=== PATIENT | male | born 1970 | race African-American/Black ===

== ENCOUNTER 2016-03-28 16:24 | Inpatient (IN) | payer OTHER ==
[~2016-03-28] VITALS: Ht 177.8 cm; Wt 78.0 kg
[~2016-03-28 16:24] MED LIST: ALBU17IN INH; AMIT25TA PO; FINA5TAB2 PO; MIRA3350 PO; NORC5TAB PO; OMEP20CA3 PO; OMEP40CA2 PO; ONDA4TAB6 PO; PEPT262S PO; RANI15TA PO; ROLA1CHW PO
[2016-03-28] MEDS ORDERED: MORPHINE 4 MG/ML 1ML SYRINGE As Ordered ONE (17:37)
[2016-03-28] MEDS ORDERED: ONDANSETRON 4MG/2ML VIAL (J2405) As Ordered ONE (17:37)
[2016-03-28 17:50] LABS: BASO % 0.8 % (0.0-1.0); EOS # 0.2 K/mm3 (0.0-0.50); EOS % 3.9 % (0.0-3.0); LARGE UNSTAINED CELL # 0.1 K/mm3 (0.0-0.4); LARGE UNSTAINED CELL % 2.4 % (0.0-4.0); LYMPH # 1.6 K/mm3 (1.5-4.5); LYMPH % 31.4 % (24.0-44.0); MEAN CORPUSCULAR HEMOGLOBIN 31.4 pg (27.0-33.0); MEAN CORPUSCULAR HGB CONC 33.8 g/dl (32.0-36.5); MEAN CORPUSCULAR VOLUME 92.9 fl (80.0-96.0); MONO # 0.4 K/mm3 (0.0-0.8); MONO % 7.3 % (0.0-5.0); NEUTROPHILS # 2.7 K/mm3 (1.8-7.7); NEUTROPHILS % 54.3 % (36.0-66.0); PLATELET COUNT, AUTOMATED 134 k/mm3 (150-450); RED CELL DISTRIBUTION WIDTH 12.7 % (11.5-14.5)
[2016-03-28] MEDS ORDERED: GI COCKTAIL 50ML BTL(HYOSCYAMINE/MAALOX/LIDOCAINE VISCOUS)(1:3:1) As Ordered ONE (17:50)
--- NOTE | 2016-03-28 18:58 | REP ---
CT ABDOMEN AND PELVIS WITHOUT CONTRAST: CT abdomen and pelvis is performed without oral or IV contrast. Sagittal and coronal reconstruction images are performed. Comparison is made with prior study of 02/24/2016. Visualized lung bases demonstrate no infiltrate. Liver and gallbladder are grossly unremarkable. Spleen demonstrates a tiny calcified granuloma. Adrenals, pancreas and kidneys are grossly unremarkable. There is no evidence of renal, ureteral or bladder calculus. There is no hydronephrosis is seen. There is no abdominal aortic aneurysm. There is no free and no definite free fluid. No gross bowel wall thickening is seen. There is no evidence of appendicitis. IMPRESSION: Essentially negative noncontrast CT abdomen and pelvis. No evidence of renal, ureteral or bladder calculus and no evidence of hydronephrosis. No evidence of appendicitis. Signed by Jeremias Walton MD 03/28/2016 07:18 P
[2016-03-28 19:54] LABS: ALBUMIN 3.3 GM/DL (3.2-5.2); ALBUMIN/GLOBULIN RATIO 1.14 (1.00-1.93); ALKALINE PHOSPHATASE 61 U/L (45-117); ALT/SGPT 34 U/L (12-78); AMYLASE 204 U/L (25-115); ANION GAP 6 MEQ/L (8-16); AST/SGOT 17 U/L (15-37); BILIRUBIN,DIRECT 0.1 MG/DL (0.0-0.2); BILIRUBIN,TOTAL 0.4 MG/DL (0.2-1.0); BLOOD UREA NITROGEN 17 MG/DL (7-18); CARBON DIOXIDE LEVEL 31 MEQ/L (21-32); CHLORIDE LEVEL 107 MEQ/L (98-107); CREATININE FOR GFR 0.97 MG/DL (0.70-1.30); GLOMERULAR FILTRATION RATE > 60.0 (>60); GLUCOSE, FASTING 82 MG/DL (70-105); POTASSIUM SERUM 4.7 MEQ/L (3.5-5.1); SODIUM LEVEL 144 MEQ/L (136-145); TOTAL PROTEIN 6.2 GM/DL (6.4-8.2)
[2016-03-28] MEDS ORDERED: OMEP20CA3 PO (20:37)
[2016-03-28] MEDS ORDERED: RANI150T PO (20:37)
[2016-03-28 20:57] VITALS: BP 121/65
[2016-03-28] MEDS ORDERED: ONDANSETRON 4MG/2ML VIAL (J2405) IV PRN (21:30)
[2016-03-28] MEDS ORDERED: ACETAMINOPHEN TAB 650MG DOSE (2X325MG) PO PRN (21:30)
[2016-03-28] MEDS ORDERED: MORPHINE 2 MG/ML 1ML SYRINGE IV PRN (21:30)
--- NOTE | 2016-03-28 21:50 | REPUSA ---
CLINICAL HISTORY: Abdominal pain. TECHNIQUE: Realtime sonographic images were obtained in multiple projections. COMMENTS: The liver is of normal size, parenchyma demonstrates normal echogenicity. No discrete hepatic mass is seen. There is no intra or extrahepatic biliary ductal dilatation. CBD measures 2.9 mm. The gallbladder is physiologically distended and contains a 2 mm polyp versus retained stone at the anterior nondependen t gallbladder wall. The gallbladder wall is not thickened and there is no pericholecystic fluid. The re is no abdominal ascites. The right kidney measures 12.3 cm , free of hydronephrosis. IMPRESSION: 2 mm polyp versus retained stone at the anterior nondependent gallbladder wall. Thank you for your kind referral of this patient.
[2016-03-28 22:01] LABS: CHOLESTEROL LEVEL 127 MG/DL (<200); TRIGLYCERIDES LEVEL 42 MG/DL (<150)
--- NOTE | 2016-03-28 22:56 | EDDOCDS ---
Nurse's Notes [facility] Name: Cait Riggs Age: 45 yrs Sex: Male : 1970 Arrival Date: 03/28/2016 Time: 16:24 Bed I5 / M5 Private MD: No Pcp Diagnosis: Acute pancreatitis;Other abdominal pain;Nausea and vomiting Presentation: 03/28 16:27 Presenting complaint: Patient states: pt c/o "epigastric pain and interstitial ead cystitis." pt reports onset of symptoms two days ago. also c/o n/v. Adult Sepsis Screening: The patient does not have new or worsening altered mentation. Patient's respiratory rate is less than 22. Systolic blood pressure is greater than 100. Patient has a qSOFA score of 0- Negative Sepsis Screen. Suicide/Homicide risk assessment- the patient denies having any suicidal and/or homicidal ideations and does not present with any other emotional, behavioral or mental health complaints. Status: Patient is not a senior administrative services officer or dependent. Transition of care: patient was not received from another setting of care. 16:27 Acuity: JIMMY Level 3 ead 16:27 Method Of Arrival: Walkin/Carried/Asstd ead Triage Assessment: 16:29 General: Appears in no apparent distress, uncomfortable. Pain: Location: mid-sternal ead area Pain currently is 10 out of 10 on a pain scale. HIV screening NA for this visit Offered previously. Neurological: No deficits noted. Respiratory: Airway is patent Respiratory effort is even, unlabored. GI: Reports nausea, vomiting. Derm: No deficits noted. Historical: - Allergies: Amoxicillin (Hives); Cefuroxime (Vomit); Clindamycin (Hives); Doxycycline (Hives); lactose intolerant; PENICILLINS ("it freaks me out"); IV Dye; Protonix (Vomit); Toradol (Vomit); - Home Meds: 1. omeprazole 20 mg Oral TbEC 20 mg three times a day (Last dose: 03/28/2016) 2. ranitidine HCl 150 mg Oral tab 3 times per day (Last dose: 03/28/2016) - PMHx: abdominal hernia x2; Hiatal Hernia; GERD; Hypertension; cardiomegaly; - PSHx: Hernia repair; - Social history: Smoking status: Patient states former smoker of tobacco. No barriers to communication noted, The patient speaks fluent Qatari, Speaks appropriately for age. - Family history: Not pertinent. - : The pt / caregiver states he / she is not on anticoagulants. Home medication list is obtained from the patient, [employer] import data. - Exposure Risk Screening:: None identified. Screenin:52 Screening information is obtained from the patient. Fall risk: No risks identified. kc3 Assistance ADL's: requires no assistance with activities of daily living. Abuse/DV Screen: The patient / caregiver reports he/she is: not in a situation that causes fear, pain or injury. Nutritional screening: No deficits noted. home support is adequate. 22:13 Advance Directives: Currently, there is no health care proxy. There is no active DNR kas2 order. There is no living will. There is no Power of Pan Cleaner. Assessment: 17:44 Adult Sepsis Screening: The patient does not have new or worsening altered mentation. dsf Patient's respiratory rate is less than 22. Systolic blood pressure is greater than 100. Patient has a qSOFA score of 0- Negative Sepsis Screen. General: Appears in no apparent distress, Behavior is appropriate for age, cooperative. Pain: Location: pelvis and chest Pain currently is 10 out of 10 on a pain scale. Quality of pain is described as pressure. Neurological: Level of Consciousness is awake, alert. Cardiovascular: Capillary refill < 3 seconds. Respiratory: Airway is patent Respiratory effort is even, unlabored, Respiratory pattern is regular, symmetrical. GI: Abdomen is flat. Derm: Skin is intact. 18:44 General: Appears in no apparent distress, Behavior is appropriate for age, cooperative. dsf Neurological: Level of Consciousness is. Cardiovascular: Capillary refill < 3 seconds. Respiratory: Airway is patent Respiratory effort is even, unlabored, Respiratory pattern is regular, symmetrical. Derm: Skin is intact, Skin is normal. 19:00 General: pt walking around room waiting for test results . dsf 20:00 General: Appears in no apparent distress, Behavior is appropriate for age, cooperative. dsf Neurological: Level of Consciousness is awake, alert. Cardiovascular: Capillary refill < 3 seconds. Respiratory: Airway is patent Respiratory effort is even, unlabored, Respiratory pattern is regular, symmetrical. Derm: Skin is intact, Skin is normal. 21:52 General: Appears in no apparent distress, comfortable, well nourished, well groomed, kas2 Behavior is appropriate for age, cooperative, . Pain: Location: pelvis and chest and mid-sternal area Pain currently is 4 out of 10 on a pain scale. Neurological: Level of Consciousness is awake, alert, Oriented to person, place, time. Cardiovascular: Capillary refill < 3 seconds Rhythm is regular. Respiratory: Airway is patent Respiratory effort is even, unlabored, Respiratory pattern is regular, symmetrical, Breath sounds are clear bilaterally. Derm: Skin is intact, is healthy with good turgor, Skin is dry, Skin is pink, warm & dry. normal, Skin temperature is warm. 22:11 General: Patient sitting up in bed watching TV. Denies pain of discomfort at this time. kas2 Appears comfortable. No apparent distress noted. Call calvo within reach. Will continue to monitor.. 22:55 GI: kas2 Vital Signs: 16:26 BP 132 / 72; Pulse 74; Resp 18 S; Temp 96.2; Pulse Ox 98% on R/A; Weight 86.18 kg (R); dd6 Height 5 ft. 10 in. (177.80 cm) (R); Pain 10/10; 18:20 Pain 4/10; kc3 18:37 BP 138 / 78; Pulse 61; Resp 18; Pulse Ox 99% ; Pain 3/10; jrd 22:15 BP 134 / 76; Pulse 74; Resp 18; Temp 97.5; Pulse Ox 98% ; Pain 9/10; ajs 22:52 BP 128 / 72; Pulse 80; Resp 20; Temp 98.0; Pulse Ox 98% ; Pain 4/10; kas2 16:26 Body Mass Index 27.26 (86.18 kg, 177.80 cm) dd6 Vitals: 16:26 Log In Time: March 28, 2016 at 16:24. RN notified that patient meets Red Flag dd6 criteria. ED Course: 16:25 Patient visited by Edwardo Gar PCA. dd6 16:25 Patient moved to Waiting dd6 16:26 No Pcp is Private Physician. dd6 16:28 Triage Initiated ead 16:41 Patient moved to Pre RCE mlb1 16:44 Patient moved to Triage 1 ttb 17:12 [facility] ef1 17:12 Jaymie Mehta MD is Attending Physician. ef1 17:13 Patient visited by Mercedez Rendon PA-C. ef1 17:23 Patient moved to I5 / M5 rs6 17:24 Patient moved to Triage 1 rs6 17:26 Patient moved to I5 / M5 ttb 17:33 Patient name changed from Lario\\S\\\\S\\Keely\\S\\ to Lario\\S\\ \\S\\Keely. EDMS 17:33 Pt greeted and oriented to ED. Patient advised of names of staff involved in care, rs6 location of call calvo, wait times and NPO status. Patient has correct armband on for positive identification. Placed in gown. Bed in low position. Call light in reach. Side rails up X 1. Cardiac monitoring not applicable on this patient. 17:33 Urinalysis Sent. rs6 17:33 Urine Culture Sent. rs6 17:34 Patient visited by Nori Echeverria PCA. rs6 17:44 Amylase Sent. dsf 17:44 Basic Metabolic Profile Sent. dsf 17:44 CBC with Diff Sent. dsf 17:44 Lipase Sent. dsf 17:44 Liver Profile Sent. dsf 17:44 Inserted saline lock: 18 gauge in left antecubital area The patient tolerated the dsf procedure well. 17:45 Patient visited by Elise Rose RN. dsf 17:50 The patient / caregiver is instructed regarding the plan of care and ED course. kc3 17:56 [facility] Payment Agreement was scanned into [employer] and attached to record. jpb 18:19 Patient visited by Yamile Bliss RN. kc3 18:51 Patient visited by Mercedez Rendon PA-C. ef1 19:14 CT ABD & PELVIS: No Contrast Returned. EDMS 19:22 Patient visited by Mercedez Rendon PA-C. ef1 20:02 Patient visited by Mercedez Rendon PA-C. ef1 20:05 Patient visited by Elise Rose RN. dsf 20:11 CT ABD & PELVIS: No Contrast Returned. EDMS 20:35 Patient visited by Mercedez Rednon PA-C. ef1 20:45 Patient moved to Ultrasound br3 20:52 Patient visited by Elise Rose RN. dsf 21:04 Patient moved to I5 / M5 br3 21:14 Loly Pittman is Hospitalizing Provider. ef1 21:53 Patient visited by Danette Holland RN. kas2 22:13 No procedures done that require assistance. kas2 22:15 Patient visited by Danette Holland RN. kas2 22:16 Patient visited by Radha Fofana. ajs 22:32 Gallbladder US Returned. EDMS 22:33 Patient visited by Danette Holland RN. kas2 22:55 Patient visited by Danette Holland RN. kas2 Administered Medications: 17:49 Drug: NS 0.9% 1000 ml [sodium chloride 0.9 % intravenous solution] Route: IV; Rate: kc3 bolus; Site: left antecubital; 17:49 Drug: morphine 2 mg [morphine 4 mg/mL intravenous cartridge (0.5 mL)] {Note: pt kc3 requested partial dose. .} Route: IVP; Site: left antecubital; 18:20 Follow up: Pain 4/10 Adult kc3 17:50 Drug: Ondansetron 4 mg [ondansetron HCl 2 mg/mL intravenous solution (2 mL)] Route: kc3 IVP; Site: left antecubital; 18:20 Follow up: Response: No Adverse Reaction kc3 17:52 Drug: GI Cocktail - (Alum-Mag Hydroxide-Simeth Suspension 225 mg-200 mg-25 mg/5 mL 30 kc3 ml, Lidocaine Liquid 2 % 10 ml, Hyoscyamine Liquid 10 ml) Route: PO; 18:20 Follow up: Response: No Adverse Reaction kc3 Order Results: Lab Order: Amylase; SPEC'M 03/28/16 19:01 Test: AMYLASE; Value: 204; Range: 25-115; Abnormal: Above high normal; Units: U/L; Status: F Lab Order: Basic Metabolic Profile; SPEC'M 03/28/16 19:01 Test: GLUCOSE, FASTING; Value: 82; Range: 70-105; Units: MG/DL; Status: F Test: BLOOD UREA NITROGEN; Value: 17; Range: 7-18; Units: MG/DL; Status: F Test: CREATININE FOR GFR; Value: 0.97; Range: 0.70-1.30; Units: MG/DL; Status: F Test: GLOMERULAR FILTRATION RATE; Value: > 60.0; Range: >60; Status: F Test: SODIUM LEVEL; Value: 144; Range: 136-145; Units: MEQ/L; Status: F Test: POTASSIUM SERUM; Value: 4.7; Range: 3.5-5.1; Units: MEQ/L; Status: F Test: CHLORIDE LEVEL; Value: 107; Range: 98-107; Units: MEQ/L; Status: F Test: CARBON DIOXIDE LEVEL; Value: 31; Range: 21-32; Units: MEQ/L; Status: F Test: ANION GAP; Value: 6; Range: 8-16; Abnormal: Below low normal; Units: MEQ/L; Status: F Test: CALCIUM LEVEL; Value: 8.0; Range: 8.5-10.1; Abnormal: Below low normal; Units: MG/DL; Status: F Test Note: ; Units are mL/min/1.73 m2 Chronic Kidney Disease Staging per NKF: Stage I & II GFR >=60 Normal to Mildly Decreased Stage III GFR 30-59 Moderately Decreased Stage IV GFR 15-29 Severely Decreased Stage V GFR <15 Very Little GFR Left ESRD GFR <15 on TOY ELECTRIC TRAIN REPAIRER Lab Order: CBC with Diff; SPEC'M 03/28/16 17:40 Test: WHITE BLOOD COUNT; Value: 5.0; Range: 4.0-10.0; Units: K/mm3; Status: F Test: RED BLOOD COUNT; Value: 5.91; Range: 4.30-6.10; Units: M/mm3; Status: F Test: HEMOGLOBIN; Value: 18.5; Range: 14.0-18.0; Abnormal: Above high normal; Units: g/dl; Status: F Test: HEMATOCRIT; Value: 54.9; Range: 42.0-52.0; Abnormal: Above high normal; Units: %; Status: F Test: MEAN CORPUSCULAR VOLUME; Value: 92.9; Range: 80.0-96.0; Units: fl; Status: F Test: MEAN CORPUSCULAR HEMOGLOBIN; Value: 31.4; Range: 27.0-33.0; Units: pg; Status: F Test: MEAN CORPUSCULAR HGB CONC; Value: 33.8; Range: 32.0-36.5; Units: g/dl; Status: F Test: RED CELL DISTRIBUTION WIDTH; Value: 12.7; Range: 11.5-14.5; Units: %; Status: F Test: PLATELET COUNT, AUTOMATED; Value: 134; Range: 150-450; Abnormal: Below low normal; Units: k/mm3; Status: F Test: NEUTROPHILS %; Value: 54.3; Range: 36.0-66.0; Units: %; Status: F Test: LYMPH %; Value: 31.4; Range: 24.0-44.0; Units: %; Status: F Test: MONO %; Value: 7.3; Range: 0.0-5.0; Abnormal: Above high normal; Units: %; Status: F Test: EOS %; Value: 3.9; Range: 0.0-3.0; Abnormal: Above high normal; Units: %; Status: F Test: BASO %; Value: 0.8; Range: 0.0-1.0; Units: %; Status: F Test: LARGE UNSTAINED CELL %; Value: 2.4; Range: 0.0-4.0; Units: %; Status: F Test: NEUTROPHILS #; Value: 2.7; Range: 1.8-7.7; Units: K/mm3; Status: F Test: LYMPH #; Value: 1.6; Range: 1.5-4.5; Units: K/mm3; Status: F Test: MONO #; Value: 0.4; Range: 0.0-0.8; Units: K/mm3; Status: F Test: EOS #; Value: 0.2; Range: 0.0-0.50; Units: K/mm3; Status: F Test: BASO #; Value: 0.0; Range: 0.0-0.2; Units: K/mm3; Status: F Test: LARGE UNSTAINED CELL #; Value: 0.1; Range: 0.0-0.4; Units: K/mm3; Status: F Lab Order: Lipase; SPEC'M 03/28/16 19:01 Test: LIPASE; Value: 442; Range: 73-393; Abnormal: Above high normal; Units: U/L; Status: F Lab Order: Liver Profile; SPEC'M 03/28/16 19:01 Test: AST/SGOT; Value: 17; Range: 15-37; Units: U/L; Status: F Test: ALT/SGPT; Value: 34; Range: 12-78; Units: U/L; Status: F Test: ALKALINE PHOSPHATASE; Value: 61; Range: 45-117; Units: U/L; Status: F Test: BILIRUBIN,TOTAL; Value: 0.4; Range: 0.2-1.0; Units: MG/DL; Status: F Test: BILIRUBIN,DIRECT; Value: 0.1; Range: 0.0-0.2; Units: MG/DL; Status: F Test: TOTAL PROTEIN; Value: 6.2; Range: 6.4-8.2; Abnormal: Below low normal; Units: GM/DL; Status: F Test: ALBUMIN; Value: 3.3; Range: 3.2-5.2; Units: GM/DL; Status: F Test: ALBUMIN/GLOBULIN RATIO; Value: 1.14; Range: 1.00-1.93; Status: F Lab Order: Urinalysis; SPEC'M 03/28/16 17:30 Test: APPEARANCE, URINE; Value: CLEAR; Range: CLEAR; Status: F Test: COLOR, URINE; Value: YELLOW; Range: YELLOW; Status: F Test: PH,URINE; Value: 5.0; Range: 5.0-9.0; Units: UNITS; Status: F Test: SPECIFIC GRAVITY URINE AUTO; Value: 1.023; Range: 1.002-1.035; Status: F Test: PROTEIN, URINE AUTO; Value: NEGATIVE; Range: NEGATIVE; Units: mg/dL; Status: F Test: GLUCOSE, URINE (UA) AUTO; Value: NEGATIVE; Range: NEGATIVE; Units: mg/dL; Status: F Test: KETONE, URINE AUTO; Value: NEGATIVE; Range: NEGATIVE; Units: mg/dL; Status: F Test: UROBILINOGEN, URINE AUTO; Value: 0.2; Range: 0.0-2.0; Units: mg/dL; Status: F Test: BILIRUBIN, URINE AUTO; Value: NEGATIVE; Range: NEGATIVE; Status: F Test: NITRITE, URINE AUTO; Value: NEGATIVE; Range: NEGATIVE; Status: F Test: LEUKOCYTE ESTERASE, URINE AUTO; Value: NEGATIVE; Range: NEGATIVE; Status: F Test: BLOOD, URINE BLOOD; Value: NEGATIVE; Range: NEGATIVE; Status: F Test: WBC, URINE AUTO; Value: 0; Range: 0-3; Units: /HPF; Status: F Test: RBC, URINE AUTO; Value: 1; Range: 0-3; Units: /HPF; Status: F Test: BACTERIA, URINE AUTO; Value: NEGATIVE; Range: NEGATIVE; Status: F Test: SQUAMOUS EPITHELIAL CELL UR AU; Value: 0; Range: 0-6; Units: /HPF; Status: F Test: MUCUS, URINE; Value: SMALL; Range: NEGATIVE; Status: F Test: HYALINE CAST, URINE AUTO; Value: 0; Range: 0-1; Units: /LPF; Status: F Lab Order: CARDIAC RISK PROFILE; SPEC'M 03/28/16 19:01 Test: TRIGLYCERIDES LEVEL; Value: 42; Range: <150; Units: MG/DL; Status: F Test: CHOLESTEROL LEVEL; Value: 127; Range: <200; Units: MG/DL; Status: F Test: HDL CHOLESTEROL; Value: 53; Range: >40; Units: MG/DL; Status: F Test: LDL CHOLESTEROL; Value: 65.6; Range: <100; Units: MG/DL; Status: F Test: NON-HDL-C; Value: 74; Units: MG/DL; Status: F Test: CHOLESTEROL RISK RATIO; Value: 2.396; Range: <5; Status: F Radiology Order: CT ABD & PELVIS: No Contrast Test: CT ABD & PELVIS: No Contrast REASON FOR EXAMINATION: Renal colic; CT ABDOMEN AND PELVIS WITHOUT CONTRAST:; ; CT abdomen and pelvis is performed without oral or IV contrast.; ; Sagittal and coronal reconstruction images are performed. Comparison is made with; prior study of 02/24/2016.; ; Visualized lung bases demonstrate no infiltrate.; ; Liver and gallbladder are grossly unremarkable. Spleen demonstrates a tiny; calcified granuloma. Adrenals, pancreas and kidneys are grossly unremarkable.; There is no evidence of renal, ureteral or bladder calculus. There is no; hydronephrosis is seen. There is no abdominal aortic aneurysm. There is no free; and no definite free fluid. No gross bowel wall thickening is seen. There is no; evidence of appendicitis.; ; IMPRESSION:; ; Essentially negative noncontrast CT abdomen and pelvis. No evidence of renal,; ureteral or bladder calculus and no evidence of hydronephrosis. No evidence of; appendicitis.; ; ; Signed by; Jeremias Walton MD 03/28/2016 07:18 P; Radiology Order: Gallbladder US Test: Gallbladder US REASON FOR EXAMINATION: pancreatitis; ; CLINICAL HISTORY: Abdominal pain.; TECHNIQUE: Realtime sonographic images were obtained in multiple projections.; COMMENTS:; The liver is of normal size, parenchyma demonstrates normal echogenicity. No discrete hepatic mass is; seen.; There is no intra or extrahepatic biliary ductal dilatation. CBD measures 2.9 mm. The gallbladder is; physiologically distended and contains a 2 mm polyp versus retained stone at the anterior nondependen; t gallbladder wall. The gallbladder wall is not thickened and there is no pericholecystic fluid. The; re is no abdominal ascites.; The right kidney measures 12.3 cm , free of hydronephrosis.; IMPRESSION:; 2 mm polyp versus retained stone at the anterior nondependent gallbladder wall.; Thank you for your kind referral of this patient.; ; Outcome: 17:54 CT Study completed. 3 21:14 Decision to Hospitalize by Provider. ef1 22:13 Discharge Assessment: patient administered narcotics - yes. Patient was admitted to the [address] or transferred to another facility. 22:13 Property :Personal belongings accompany Pt. [facility] 22:53 The following High Risk Discharge criteria are identified: None. Admitted to Med/Surg [facility] accompanied by tech, via wheelchair, with chart. Condition: good Condition: stable. 22:55 Patient left the ED. [facility] Signatures: Dispatcher [employer] EDDE Yury Chew RN RN mlb1 Edwardo Gar, RN ASSESSMENT RN ASSESSMENT dd6 Mercedez Rendon PA-C PA-C ef1 Vivian Hammer br3 Elise RoseRN RN dsf Radha Fofana Joel jpb Conner, Teresa RN RN Natalie OconnellRN RN Florentino Moran, RN ASSESSMENT RN ASSESSMENT d Nori Echeverria, RN ASSESSMENT RN ASSESSMENT rs6 Yamile Bliss RN RN kc3 Danette Holland RN RN [facility] MTDD
--- NOTE | 2016-03-28 22:56 | EDDOCDS ---
Physician Documentation [facility] Name: Cait Riggs Age: 45 yrs Sex: Male : 1970 Arrival Date: 03/28/2016 Time: 16:24 Bed I5 / M5 Private MD: No Pcp Disposition: 03/28/16 21:14 Hospitalization ordered by Loly Pittman for Inpatient Admission. Preliminary diagnosis are Acute pancreatitis, Other abdominal pain, Nausea and vomiting. - Bed requested for 4 [place]. - Status is Inpatient Admission. kas2 - Condition is Stable. - Problem is new. - Symptoms have improved. Historical: - Allergies: Amoxicillin (Hives); Cefuroxime (Vomit); Clindamycin (Hives); Doxycycline (Hives); lactose intolerant; PENICILLINS ("it freaks me out"); IV Dye; Protonix (Vomit); Toradol (Vomit); - Home Meds: 1. omeprazole 20 mg Oral TbEC 20 mg three times a day (Last dose: 03/28/2016) 2. ranitidine HCl 150 mg Oral tab 3 times per day (Last dose: 03/28/2016) - PMHx: abdominal hernia x2; Hiatal Hernia; GERD; Hypertension; cardiomegaly; - PSHx: Hernia repair; - Social history: Smoking status: Patient states former smoker of tobacco. No barriers to communication noted, The patient speaks fluent Micronesian, Speaks appropriately for age. - Family history: Not pertinent. - : The pt / caregiver states he / she is not on anticoagulants. Home medication list is obtained from the patient, [employer] import data. - Exposure Risk Screening:: None identified. Vital Signs: 03/28 16:26 BP 132 / 72; Pulse 74; Resp 18 S; Temp 96.2; Pulse Ox 98% on R/A; Weight 86.18 kg / dd6 189.99 lbs (R); Height 5 ft. 10 in. (177.80 cm) (R); Pain 10/10; 18:20 Pain 4/10; kc3 18:37 BP 138 / 78; Pulse 61; Resp 18; Pulse Ox 99% ; Pain 3/10; jrd 22:15 BP 134 / 76; Pulse 74; Resp 18; Temp 97.5; Pulse Ox 98% ; Pain 9/10; ajs 22:52 BP 128 / 72; Pulse 80; Resp 20; Temp 98.0; Pulse Ox 98% ; Pain 4/10; kas2 16:26 Body Mass Index 27.26 (86.18 kg, 177.80 cm) dd6 MDM: 17:23 NS 0.9% 1000 ml IV at bolus once ordered. ef1 17:23 Ondansetron 4 mg IVP once ordered. ef1 17:23 IV Saline Lock ordered. ef1 17:23 Undress patient appropriately for examination ordered. ef1 17:23 morphine 4 mg IVP once ordered. ef1 17:24 CT ABD & PELVIS: No Contrast Ordered. EDMS 17:25 Amylase Ordered. EDMS 17:25 Basic Metabolic Profile Ordered. EDMS 17:25 CBC with Diff Ordered. EDMS 17:25 Lipase Ordered. EDMS 17:25 Liver Profile Ordered. EDMS 17:25 Urinalysis Ordered. EDMS 17:25 Urine Culture Ordered. EDMS 17:25 NOTHING BY MOUTH+DIET ordered. EDMS 17:43 Financial registration complete. dm19 17:47 GI Cocktail - (Alum-Mag Hydroxide-Simeth 30 ml, Lidocaine 10 ml, Hyoscyamine 10 ml) PO ef1 once; Pre-mixed 50mL unit dose ordered. 17:56 [facility] Payment Agreement was scanned into [employer] and attached to record. jpb 18:03 CBC with Diff Reviewed. ef1 18:03 Urinalysis Reviewed. ef1 19:30 CT ABD & PELVIS: No Contrast Reviewed. ef1 20:03 Amylase Reviewed. ef1 20:03 Basic Metabolic Profile Reviewed. ef1 20:03 Lipase Reviewed. ef1 20:03 Liver Profile Reviewed. ef1 20:36 Gallbladder US Ordered. EDMS 20:36 BED REQUEST+ADM ordered. EDMS 21:31 Admission / Observation Status ordered. EDMS 21:31 NPO DIET ordered. EDMS 21:40 COMPLETE BLOOD COUNT Ordered. EDMS 21:40 BASIC METABOLIC PROFILE Ordered. EDMS 21:50 CARDIAC RISK PROFILE Ordered. EDMS 21:51 LIPASE Ordered. EDMS Administered Medications: 17:49 Drug: NS 0.9% 1000 ml [sodium chloride 0.9 % intravenous solution] Route: IV; Rate: kc3 bolus; Site: left antecubital; 17:49 Drug: morphine 2 mg [morphine 4 mg/mL intravenous cartridge (0.5 mL)] {Note: pt kc3 requested partial dose. .} Route: IVP; Site: left antecubital; 18:20 Follow up: Pain 4/10 Adult kc3 17:50 Drug: Ondansetron 4 mg [ondansetron HCl 2 mg/mL intravenous solution (2 mL)] Route: kc3 IVP; Site: left antecubital; 18:20 Follow up: Response: No Adverse Reaction kc3 17:52 Drug: GI Cocktail - (Alum-Mag Hydroxide-Simeth Suspension 225 mg-200 mg-25 mg/5 mL 30 kc3 ml, Lidocaine Liquid 2 % 10 ml, Hyoscyamine Liquid 10 ml) Route: PO; 18:20 Follow up: Response: No Adverse Reaction kc3 Signatures: Dispatcher [employer] EDMS Nita Garcia, RN RN [place], PANayeli PANayeli ef1 Martínez Márquez EmilyRN RN Yamile Velazquez RN RN kc3 Danette Holland RN RN [facility]2 Ebony Ashley dm19 The chart was reviewed and I authenticate all verbal orders and agree with the evaluation and treatment provided.Corrections: (The following items were deleted from the chart) 20:45 20:34 GALLBLADDER US ordered. EDMS EDMS 21:50 21:40 CARDIAC RISK PROFILE ordered. EDMS EDMS 21:51 21:40 LIPASE ordered. EDMS EDMS Attachments: 17:56 [facility] Payment Agreement adilson MTDD
[2016-03-28] MEDS: NS 1,000 ML IV SCH (23:08)
--- NOTE | 2016-03-29 00:24 | HPE ---
DATE OF ADMISSION: 03/28/2016 PRIMARY CARE PROVIDER: None. GASTROENTEROLOGY SPECIALIST: Fidencio HISTORY OF PRESENT ILLNESS: Patient is a 45-year-old male with past medical history significant for gastroesophageal reflux disease (GERD), hypertension, hiatal hernia, interstitial cystitis, presented to [facility] on 03/28/2016, for acute worsening of abdominal pain. Patient stated that for the past 2-3 days he started having pain mainly in the right upper abdomen. The pain is sharp. It radiates to the back and the whole abdomen. The pain becomes worse with movement or oral intake. Denied any trauma. This type of pain never happened before. Patient did have multiple episodes of abdominal discomfort in the past several months. He has being seen by the gastrointestinal (GI) specialist in [place]; however, there is no confirmed diagnosis for his chronic abdominal discomfort. He denies any other associated symptoms. Denies any recent medication changes. Denies any lifestyle modifications. Denies any excessive alcohol use. Due to poor appetite, the patient lost more than 100 pounds in the past year. When patient arrived in the emergency room, patient was found to have an elevated lipase level. Patient was given IV morphine and one liter of normal saline bolus and hospitalist was called for admission. ALLERGIES/ADVERSE EFFECTS: 1. AMOXICILLIN. 2. CEFUROXIME. 3. CLINDAMYCIN. 4. DOXYCYCLINE. 5. PENICILLIN. 6. IV DYE. 7. PROTONIX. 8. TORADOL. HOME MEDICATIONS: - omeprazole 20 mg by mouth three times a day - ranitidine 150 mg by mouth three times a day PAST MEDICAL HISTORY: 1. Abdominal hernia. 2. Hiatal hernia. 3. Gastroesophageal reflux disease. 4. Hypertension. 5. Interstitial cystitis. PAST SURGICAL HISTORY: Hiatal hernia repair. SOCIAL HISTORY: Patient used to smoke half a pack daily for 16 years. He quit smoking. No alcohol use. No recreational drug use. REVIEW OF SYSTEMS: GENERAL: No fever, no chills. HEENT: No vision changes. No auditory changes. CARDIOVASCULAR: No chest pain. No palpitations. RESPIRATORY: No shortness of breath, no wheezing, no cough, no sputum production. GI: Abdominal pain for the past 2-3 days, unable to tolerate oral intake due to discomfort. No diarrhea. MUSCULOSKELETAL: No joint pain or muscle pain. NEUROLOGICAL: No numbness or tingling. PHYSICAL EXAMINATION: VITAL SIGNS: Blood pressure is 138/78, pulse is 61, respiratory rate 18, temperature is 96.2, pulse oximetry 99% in room air. Body weight is 86.18 kg, body height is 177.8 cm. GENERAL: No signs of acute distress, alert, and oriented times three. HEENT: Normocephalic, atraumatic. Extraocular motors are grossly intact. CARDIOVASCULAR: Positive S1, S2, regular rate. RESPIRATORY: Clear to auscultation bilaterally. ABDOMEN: Positive rebound right upper quadrant and pain is reproducible with pressure. Hyperactive bowel sounds are present. Abdomen is soft. EXTREMITIES: No edema, no cyanosis. NEUROLOGICAL: Muscle strength 5/5. Sensation to fine touch grossly intact. LABORATORY DATA: WBC 5, hemoglobin 18.5, hematocrit is 54.9, platelet count is 134. Sodium is 144, potassium 4.5, chloride is 107, carbon dioxide 31, BUN 17, creatinine 0.97, GFR greater than 60, fasting glucose 82, calcium is 8, total bilirubin is 0.4, direct bilirubin is 0.1, AST 17, ALT 34, alkaline phosphatase 61, total protein 6.2, albumin is 3.3, amylase is 204, lipase of 442. UA is negative. MICROBIOLOGY: Urine culture is pending. IMAGING: CT of the abdomen and pelvis without contrast showed essentially negative, non-contrast CT of abdomen and pelvis. No evidence of renal, ureteral, or bladder calculus, and no evidence of hydronephrosis. No evidence of appendicitis. ASSESSMENT AND PLAN: 1. Pancreatitis. Patient will be admitted to the medical-surgical floor under inpatient status. Patient will be nothing by mouth and started on IV fluids at 150 mL/hr. Patient will have morphine IV as needed for pain control. Patient denied any medication changes, denied any lifestyle modifications. Patient denies any extensive alcohol history. We will followup with ultrasound to rule out any stones. We will followup lipid profiles. 2. Gastroesophageal reflux disease. Patient is nothing by mouth currently. Patient will receive Protonix through the IV. 3. History of hiatal hernia, status post repair. 4. Interstitial cystitis. Urinalysis (UA) is negative. Urine culture is pending. 5. History of hypertension. Currently blood pressure is in satisfactory range. The patient is not taking blood pressure at home. 6. Deep vein thrombosis (DVT) prophylaxis. Patient is on heparin. [facility]
[2016-03-29] MEDS: HEPARIN SOD (PORCINE) 5000 UNITS/ML VIAL SC SCH ×3 (05:17→13:27)
[2016-03-29] MEDS: NS 1,000 ML IV SCH ×2 (05:18→12:00)
[2016-03-29 06:00] VITALS: BP 120/68
[2016-03-29 07:13] LABS: MEAN CORPUSCULAR HEMOGLOBIN 31.3 pg (27.0-33.0); MEAN CORPUSCULAR HGB CONC 33.4 g/dl (32.0-36.5); MEAN CORPUSCULAR VOLUME 93.8 fl (80.0-96.0); RED CELL DISTRIBUTION WIDTH 12.7 % (11.5-14.5); WHITE BLOOD COUNT 4.5 K/mm3 (4.0-10.0)
[2016-03-29 07:21] LABS: ANION GAP 9 MEQ/L (8-16); BLOOD UREA NITROGEN 13 MG/DL (7-18); CALCIUM LEVEL 8.3 MG/DL (8.5-10.1); CARBON DIOXIDE LEVEL 27 MEQ/L (21-32); CHLORIDE LEVEL 107 MEQ/L (98-107); CREATININE FOR GFR 1.12 MG/DL (0.70-1.30); GLOMERULAR FILTRATION RATE > 60.0 (>60); GLUCOSE, FASTING 89 MG/DL (70-105); POTASSIUM SERUM 3.9 MEQ/L (3.5-5.1); SODIUM LEVEL 143 MEQ/L (136-145)
[2016-03-29] MEDS ORDERED: AZITHROMYCIN 250 MG TAB PO SCH (09:00)
[2016-03-29] MEDS ORDERED: PANTOPRAZOLE 40MG INJ (PROTONIX) (C9113) IV SCH (09:00)
[2016-03-29] MEDS ORDERED: OMEPRAZOLE 20 MG CAP PO SCH (09:00)
--- NOTE | 2016-03-29 12:55 | REP ---
Scrotal ultrasound, 03/29/2016: Indication: Right testicular pain. Comparison: CT abdomen and pelvis without contrast 03/28/2016, CT abdomen and pelvis 12/01/2015. Technique: Color-flow Doppler, spectral wave Doppler, and putnam-scale imaging was used to evaluate the testes bilaterally. Findings: Right testicle measures 4.2 x 2.1 x 3.2 cm. Left testicle measures 4.2 x 2.2 x 3.2 cm. Testes are of homogeneous echotexture bilaterally. Two tiny bilateral testicular cysts are seen in each testicle. Symmetric perfusion is noted in the testes bilaterally. Right epididymal head is 11.9 mm in length. Left epididymal head is 12.4 mm in length. There is a 3 mm right epididymal head cyst. There is no increased perfusion within the epididymi bilaterally. There is a small left varicocele posterior to the left testicle. Impression: Testes without masses or torsion bilaterally. Each testicle contains two tiny cysts, largest 3 mm on the left. 3 mm right epididymal head cyst. No evidence of epididymitis bilaterally. Small left varicocele. Signed by Ashley Tavarez MD 03/31/2016 03:04 P
[2016-03-29] MEDS ORDERED: AZIT250T3 PO (13:15)
--- NOTE | 2016-03-30 05:38 | DSES ---
DATE OF ADMISSION: 03/28/2016 DATE OF DISCHARGE: 03/29/2016 PRIMARY CARE PROVIDER: None. Arrangements are made for patient to have a primary care provider. 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 FINAL DIAGNOSES: 1. Gastritis. 2. Pancreatitis. 3. History of interstitial cystitis. 4. History of hypertension. HISTORY OF PRESENT ILLNESS: This is a 45-year-old male patient with underlying medical history of gastroesophageal reflux disease (GERD), hypertension, hiatal hernia, interstitial cystitis, presented to [facility] with acute worsening of abdominal pain for 2-3 days. Started having in the right upper quadrant abdominal pain that is sharp. It radiated to the back and whole abdomen, worsened with movement and oral intake. Denies any trauma. As per patient, this type of pain has never happened before, with multiple episodes of abdominal discomfort, patient sees a automotive service manager in [place]. Denies any associated symptoms. No nausea. No vomiting. Denies excessive alcohol use, further weight loss. HOSPITAL COURSE: Patient was admitted to the hospital for overnight observation. Intravenous (IV) fluids have been given along with proton pump inhibitor (PPI). Deep venous thrombosis (DVT) prophylaxis provided. Ultrasound gallbladder was done. CT abdomen was also done. Ultrasound scrotum also has been done. Urinalysis has been also done. This morning, patient reported symptoms better and feeling hungry. Diet was advanced. Patient tolerating diet with no complications. Further workup has been negative. Patient would like to be discharged for further followup as outpatient. Subsequently, patient is discharged for further care as an outpatient. Arrangement was made for patient to have a primary care provider. VITAL SIGNS: Temperature 97.7, pulse 73, respirations 18, blood pressure 120/68, pulse oximetry 98% on room air. LABORATORY: WBC 4.5, hemoglobin and hematocrit 16.9/50.6, platelets 127. Chemistry: Sodium 143, potassium 3.9, chloride 107, bicarbonate 27, BUN 13, creatinine 1.12. Lipase repeat 127. DISCHARGE MEDICATIONS: - azithromycin 500 mg by mouth daily, five more tablets - omeprazole 20 mg by mouth three times a day - ranitidine 150 mg one tablet by mouth three times a day DISCHARGE INSTRUCTIONS: Patient is instructed to followup with primary care provider in 1-2 weeks. Followup with urology in 1-2 weeks and automotive service manager in 1-2 weeks. Patient is instructed to return to the hospital if symptoms worsen.
--- NOTE | 2016-03-30 23:56 | EDDOCDS ---
Nurse's Notes [facility] Name: Cait Riggs Age: 45 yrs Sex: Male : 1970 Arrival Date: 03/28/2016 Time: 16:24 Bed I5 / M5 Private MD: No Pcp Diagnosis: Acute pancreatitis;Other abdominal pain;Nausea and vomiting Presentation: 03/28 16:27 Presenting complaint: Patient states: pt c/o "epigastric pain and interstitial ead cystitis." pt reports onset of symptoms two days ago. also c/o n/v. Adult Sepsis Screening: The patient does not have new or worsening altered mentation. Patient's respiratory rate is less than 22. Systolic blood pressure is greater than 100. Patient has a qSOFA score of 0- Negative Sepsis Screen. Suicide/Homicide risk assessment- the patient denies having any suicidal and/or homicidal ideations and does not present with any other emotional, behavioral or mental health complaints. Status: Patient is not a special services coordinator or dependent. Transition of care: patient was not received from another setting of care. 16:27 Acuity: JIMMY Level 3 ead 16:27 Method Of Arrival: Walkin/Carried/Asstd ead Triage Assessment: 16:29 General: Appears in no apparent distress, uncomfortable. Pain: Location: mid-sternal ead area Pain currently is 10 out of 10 on a pain scale. HIV screening NA for this visit Offered previously. Neurological: No deficits noted. Respiratory: Airway is patent Respiratory effort is even, unlabored. GI: Reports nausea, vomiting. Derm: No deficits noted. Historical: - Allergies: Amoxicillin (Hives); Cefuroxime (Vomit); Clindamycin (Hives); Doxycycline (Hives); lactose intolerant; PENICILLINS ("it freaks me out"); IV Dye; Protonix (Vomit); Toradol (Vomit); - Home Meds: 1. omeprazole 20 mg Oral TbEC 20 mg three times a day (Last dose: 03/28/2016) 2. ranitidine HCl 150 mg Oral tab 3 times per day (Last dose: 03/28/2016) - PMHx: abdominal hernia x2; Hiatal Hernia; GERD; Hypertension; cardiomegaly; - PSHx: Hernia repair; - Social history: Smoking status: Patient states former smoker of tobacco. No barriers to communication noted, The patient speaks fluent Eritrean, Speaks appropriately for age. - Family history: Not pertinent. - : The pt / caregiver states he / she is not on anticoagulants. Home medication list is obtained from the patient, [employer] import data. - Exposure Risk Screening:: None identified. Screenin:52 Screening information is obtained from the patient. Fall risk: No risks identified. kc3 Assistance ADL's: requires no assistance with activities of daily living. Abuse/DV Screen: The patient / caregiver reports he/she is: not in a situation that causes fear, pain or injury. Nutritional screening: No deficits noted. home support is adequate. 22:13 Advance Directives: Currently, there is no health care proxy. There is no active DNR kas2 order. There is no living will. There is no Power of Bark Grinder. Assessment: 17:44 Adult Sepsis Screening: The patient does not have new or worsening altered mentation. dsf Patient's respiratory rate is less than 22. Systolic blood pressure is greater than 100. Patient has a qSOFA score of 0- Negative Sepsis Screen. General: Appears in no apparent distress, Behavior is appropriate for age, cooperative. Pain: Location: pelvis and chest Pain currently is 10 out of 10 on a pain scale. Quality of pain is described as pressure. Neurological: Level of Consciousness is awake, alert. Cardiovascular: Capillary refill < 3 seconds. Respiratory: Airway is patent Respiratory effort is even, unlabored, Respiratory pattern is regular, symmetrical. GI: Abdomen is flat. Derm: Skin is intact. 18:44 General: Appears in no apparent distress, Behavior is appropriate for age, cooperative. dsf Neurological: Level of Consciousness is. Cardiovascular: Capillary refill < 3 seconds. Respiratory: Airway is patent Respiratory effort is even, unlabored, Respiratory pattern is regular, symmetrical. Derm: Skin is intact, Skin is normal. 19:00 General: pt walking around room waiting for test results . dsf 20:00 General: Appears in no apparent distress, Behavior is appropriate for age, cooperative. dsf Neurological: Level of Consciousness is awake, alert. Cardiovascular: Capillary refill < 3 seconds. Respiratory: Airway is patent Respiratory effort is even, unlabored, Respiratory pattern is regular, symmetrical. Derm: Skin is intact, Skin is normal. 21:52 General: Appears in no apparent distress, comfortable, well nourished, well groomed, kas2 Behavior is appropriate for age, cooperative, . Pain: Location: pelvis and chest and mid-sternal area Pain currently is 4 out of 10 on a pain scale. Neurological: Level of Consciousness is awake, alert, Oriented to person, place, time. Cardiovascular: Capillary refill < 3 seconds Rhythm is regular. Respiratory: Airway is patent Respiratory effort is even, unlabored, Respiratory pattern is regular, symmetrical, Breath sounds are clear bilaterally. Derm: Skin is intact, is healthy with good turgor, Skin is dry, Skin is pink, warm & dry. normal, Skin temperature is warm. 22:11 General: Patient sitting up in bed watching TV. Denies pain of discomfort at this time. kas2 Appears comfortable. No apparent distress noted. Call calvo within reach. Will continue to monitor.. 22:55 GI: kas2 Vital Signs: 16:26 BP 132 / 72; Pulse 74; Resp 18 S; Temp 96.2; Pulse Ox 98% on R/A; Weight 86.18 kg (R); dd6 Height 5 ft. 10 in. (177.80 cm) (R); Pain 10/10; 18:20 Pain 4/10; kc3 18:37 BP 138 / 78; Pulse 61; Resp 18; Pulse Ox 99% ; Pain 3/10; jrd 22:15 BP 134 / 76; Pulse 74; Resp 18; Temp 97.5; Pulse Ox 98% ; Pain 9/10; ajs 22:52 BP 128 / 72; Pulse 80; Resp 20; Temp 98.0; Pulse Ox 98% ; Pain 4/10; kas2 16:26 Body Mass Index 27.26 (86.18 kg, 177.80 cm) dd6 Vitals: 16:26 Log In Time: March 28, 2016 at 16:24. RN notified that patient meets Red Flag dd6 criteria. ED Course: 16:25 Patient visited by Edwardo Gar PCA. dd6 16:25 Patient moved to Waiting dd6 16:26 No Pcp is Private Physician. dd6 16:28 Triage Initiated ead 16:41 Patient moved to Pre RCE mlb1 16:44 Patient moved to Triage 1 ttb 17:12 Mercedez Rendon PA-C is [facility]. ef1 17:12 Jaymie Mehta MD is Attending Physician. ef1 17:13 Patient visited by Mercedez Rendon PA-C. ef1 17:23 Patient moved to I5 / M5 rs6 17:24 Patient moved to Triage 1 rs6 17:26 Patient moved to I5 / M5 ttb 17:33 Patient name changed from Lario\\S\\\\S\\Keely\\S\\ to Lario\\S\\ \\S\\Keely. EDMS 17:33 Pt greeted and oriented to ED. Patient advised of names of staff involved in care, rs6 location of call calvo, wait times and NPO status. Patient has correct armband on for positive identification. Placed in gown. Bed in low position. Call light in reach. Side rails up X 1. Cardiac monitoring not applicable on this patient. 17:33 Urinalysis Sent. rs6 17:33 Urine Culture Sent. rs6 17:34 Patient visited by Nori Echeverria PCA. rs6 17:44 Amylase Sent. dsf 17:44 Basic Metabolic Profile Sent. dsf 17:44 CBC with Diff Sent. dsf 17:44 Lipase Sent. dsf 17:44 Liver Profile Sent. dsf 17:44 Inserted saline lock: 18 gauge in left antecubital area The patient tolerated the dsf procedure well. 17:45 Patient visited by Elise Rose RN. dsf 17:50 The patient / caregiver is instructed regarding the plan of care and ED course. kc3 17:56 [facility] Payment Agreement was scanned into [employer] and attached to record. jpb 18:19 Patient visited by Yamile Bliss RN. kc3 18:51 Patient visited by Mercedez Rendon PA-C. ef1 19:14 CT ABD & PELVIS: No Contrast Returned. EDMS 19:22 Patient visited by Mercedez Rendon PA-C. ef1 20:02 Patient visited by Mercedez Rendon PA-C. ef1 20:05 Patient visited by Elise Rose RN. dsf 20:11 CT ABD & PELVIS: No Contrast Returned. EDMS 20:35 Patient visited by Mercedez Rendon PA-C. ef1 20:45 Patient moved to Ultrasound br3 20:52 Patient visited by Elise Rose RN. dsf 21:04 Patient moved to I5 / M5 br3 21:14 Loly Pittman is Hospitalizing Provider. ef1 21:53 Patient visited by Danette Holland RN. kas2 22:13 No procedures done that require assistance. kas2 22:15 Patient visited by Danette Holland RN. kas2 22:16 Patient visited by Radha Fofana. ajs 22:32 Gallbladder US Returned. EDMS 22:33 Patient visited by Danette Holland RN. kas2 22:55 Patient visited by Danette Holland RN. kas2 03/30 08:45 T-Sheet-- Draft Copy was scanned into [employer] and attached to record. gb Administered Medications: 03/28 17:49 Drug: NS 0.9% 1000 ml [sodium chloride 0.9 % intravenous solution] Route: IV; Rate: kc3 bolus; Site: left antecubital; 17:49 Drug: morphine 2 mg [morphine 4 mg/mL intravenous cartridge (0.5 mL)] {Note: pt kc3 requested partial dose. .} Route: IVP; Site: left antecubital; 18:20 Follow up: Pain 10 Adult kc3 17:50 Drug: Ondansetron 4 mg [ondansetron HCl 2 mg/mL intravenous solution (2 mL)] Route: kc3 IVP; Site: left antecubital; 18:20 Follow up: Response: No Adverse Reaction kc3 17:52 Drug: GI Cocktail - (Alum-Mag Hydroxide-Simeth Suspension 225 mg-200 mg-25 mg/5 mL 30 kc3 ml, Lidocaine Liquid 2 % 10 ml, Hyoscyamine Liquid 10 ml) Route: PO; 18:20 Follow up: Response: No Adverse Reaction kc3 Order Results: Lab Order: Amylase; SPEC'M 03/28/16 19:01 Test: AMYLASE; Value: 204; Range: 25-115; Abnormal: Above high normal; Units: U/L; Status: F Lab Order: Basic Metabolic Profile; SPEC'M 03/28/16 19:01 Test: GLUCOSE, FASTING; Value: 82; Range: 70-105; Units: MG/DL; Status: F Test: BLOOD UREA NITROGEN; Value: 17; Range: 7-18; Units: MG/DL; Status: F Test: CREATININE FOR GFR; Value: 0.97; Range: 0.70-1.30; Units: MG/DL; Status: F Test: GLOMERULAR FILTRATION RATE; Value: > 60.0; Range: >60; Status: F Test: SODIUM LEVEL; Value: 144; Range: 136-145; Units: MEQ/L; Status: F Test: POTASSIUM SERUM; Value: 4.7; Range: 3.5-5.1; Units: MEQ/L; Status: F Test: CHLORIDE LEVEL; Value: 107; Range: 98-107; Units: MEQ/L; Status: F Test: CARBON DIOXIDE LEVEL; Value: 31; Range: 21-32; Units: MEQ/L; Status: F Test: ANION GAP; Value: 6; Range: 8-16; Abnormal: Below low normal; Units: MEQ/L; Status: F Test: CALCIUM LEVEL; Value: 8.0; Range: 8.5-10.1; Abnormal: Below low normal; Units: MG/DL; Status: F Test Note: ; Units are mL/min/1.73 m2 Chronic Kidney Disease Staging per NKF: Stage I & II GFR >=60 Normal to Mildly Decreased Stage III GFR 30-59 Moderately Decreased Stage IV GFR 15-29 Severely Decreased Stage V GFR <15 Very Little GFR Left ESRD GFR <15 on [employer]CR[employer] OPERATOR Lab Order: CBC with Diff; SPEC'M 03/28/16 17:40 Test: WHITE BLOOD COUNT; Value: 5.0; Range: 4.0-10.0; Units: K/mm3; Status: F Test: RED BLOOD COUNT; Value: 5.91; Range: 4.30-6.10; Units: M/mm3; Status: F Test: HEMOGLOBIN; Value: 18.5; Range: 14.0-18.0; Abnormal: Above high normal; Units: g/dl; Status: F Test: HEMATOCRIT; Value: 54.9; Range: 42.0-52.0; Abnormal: Above high normal; Units: %; Status: F Test: MEAN CORPUSCULAR VOLUME; Value: 92.9; Range: 80.0-96.0; Units: fl; Status: F Test: MEAN CORPUSCULAR HEMOGLOBIN; Value: 31.4; Range: 27.0-33.0; Units: pg; Status: F Test: MEAN CORPUSCULAR HGB CONC; Value: 33.8; Range: 32.0-36.5; Units: g/dl; Status: F Test: RED CELL DISTRIBUTION WIDTH; Value: 12.7; Range: 11.5-14.5; Units: %; Status: F Test: PLATELET COUNT, AUTOMATED; Value: 134; Range: 150-450; Abnormal: Below low normal; Units: k/mm3; Status: F Test: NEUTROPHILS %; Value: 54.3; Range: 36.0-66.0; Units: %; Status: F Test: LYMPH %; Value: 31.4; Range: 24.0-44.0; Units: %; Status: F Test: MONO %; Value: 7.3; Range: 0.0-5.0; Abnormal: Above high normal; Units: %; Status: F Test: EOS %; Value: 3.9; Range: 0.0-3.0; Abnormal: Above high normal; Units: %; Status: F Test: BASO %; Value: 0.8; Range: 0.0-1.0; Units: %; Status: F Test: LARGE UNSTAINED CELL %; Value: 2.4; Range: 0.0-4.0; Units: %; Status: F Test: NEUTROPHILS #; Value: 2.7; Range: 1.8-7.7; Units: K/mm3; Status: F Test: LYMPH #; Value: 1.6; Range: 1.5-4.5; Units: K/mm3; Status: F Test: MONO #; Value: 0.4; Range: 0.0-0.8; Units: K/mm3; Status: F Test: EOS #; Value: 0.2; Range: 0.0-0.50; Units: K/mm3; Status: F Test: BASO #; Value: 0.0; Range: 0.0-0.2; Units: K/mm3; Status: F Test: LARGE UNSTAINED CELL #; Value: 0.1; Range: 0.0-0.4; Units: K/mm3; Status: F Lab Order: Lipase; SPEC'M 03/28/16 19:01 Test: LIPASE; Value: 442; Range: 73-393; Abnormal: Above high normal; Units: U/L; Status: F Lab Order: Liver Profile; SPEC'M 03/28/16 19:01 Test: AST/SGOT; Value: 17; Range: 15-37; Units: U/L; Status: F Test: ALT/SGPT; Value: 34; Range: 12-78; Units: U/L; Status: F Test: ALKALINE PHOSPHATASE; Value: 61; Range: 45-117; Units: U/L; Status: F Test: BILIRUBIN,TOTAL; Value: 0.4; Range: 0.2-1.0; Units: MG/DL; Status: F Test: BILIRUBIN,DIRECT; Value: 0.1; Range: 0.0-0.2; Units: MG/DL; Status: F Test: TOTAL PROTEIN; Value: 6.2; Range: 6.4-8.2; Abnormal: Below low normal; Units: GM/DL; Status: F Test: ALBUMIN; Value: 3.3; Range: 3.2-5.2; Units: GM/DL; Status: F Test: ALBUMIN/GLOBULIN RATIO; Value: 1.14; Range: 1.00-1.93; Status: F Lab Order: Urinalysis; [facility] 03/28/16 17:30 Test: APPEARANCE, URINE; Value: CLEAR; Range: CLEAR; Status: F Test: COLOR, URINE; Value: YELLOW; Range: YELLOW; Status: F Test: PH,URINE; Value: 5.0; Range: 5.0-9.0; Units: UNITS; Status: F Test: SPECIFIC GRAVITY URINE AUTO; Value: 1.023; Range: 1.002-1.035; Status: F Test: PROTEIN, URINE AUTO; Value: NEGATIVE; Range: NEGATIVE; Units: mg/dL; Status: F Test: GLUCOSE, URINE (UA) AUTO; Value: NEGATIVE; Range: NEGATIVE; Units: mg/dL; Status: F Test: KETONE, URINE AUTO; Value: NEGATIVE; Range: NEGATIVE; Units: mg/dL; Status: F Test: UROBILINOGEN, URINE AUTO; Value: 0.2; Range: 0.0-2.0; Units: mg/dL; Status: F Test: BILIRUBIN, URINE AUTO; Value: NEGATIVE; Range: NEGATIVE; Status: F Test: NITRITE, URINE AUTO; Value: NEGATIVE; Range: NEGATIVE; Status: F Test: LEUKOCYTE ESTERASE, URINE AUTO; Value: NEGATIVE; Range: NEGATIVE; Status: F Test: BLOOD, URINE BLOOD; Value: NEGATIVE; Range: NEGATIVE; Status: F Test: WBC, URINE AUTO; Value: 0; Range: 0-3; Units: /HPF; Status: F Test: RBC, URINE AUTO; Value: 1; Range: 0-3; Units: /HPF; Status: F Test: BACTERIA, URINE AUTO; Value: NEGATIVE; Range: NEGATIVE; Status: F Test: SQUAMOUS EPITHELIAL CELL UR AU; Value: 0; Range: 0-6; Units: /HPF; Status: F Test: MUCUS, URINE; Value: SMALL; Range: NEGATIVE; Status: F Test: HYALINE CAST, URINE AUTO; Value: 0; Range: 0-1; Units: /LPF; Status: F Lab Order: CARDIAC RISK PROFILE; SPEC'M 03/28/16 19:01 Test: TRIGLYCERIDES LEVEL; Value: 42; Range: <150; Units: MG/DL; Status: F Test: CHOLESTEROL LEVEL; Value: 127; Range: <200; Units: MG/DL; Status: F Test: HDL CHOLESTEROL; Value: 53; Range: >40; Units: MG/DL; Status: F Test: LDL CHOLESTEROL; Value: 65.6; Range: <100; Units: MG/DL; Status: F Test: NON-HDL-C; Value: 74; Units: MG/DL; Status: F Test: CHOLESTEROL RISK RATIO; Value: 2.396; Range: <5; Status: F Radiology Order: CT ABD & PELVIS: No Contrast Test: CT ABD & PELVIS: No Contrast REASON FOR EXAMINATION: Renal colic; CT ABDOMEN AND PELVIS WITHOUT CONTRAST:; ; CT abdomen and pelvis is performed without oral or IV contrast.; ; Sagittal and coronal reconstruction images are performed. Comparison is made with; prior study of 02/24/2016.; ; Visualized lung bases demonstrate no infiltrate.; ; Liver and gallbladder are grossly unremarkable. Spleen demonstrates a tiny; calcified granuloma. Adrenals, pancreas and kidneys are grossly unremarkable.; There is no evidence of renal, ureteral or bladder calculus. There is no; hydronephrosis is seen. There is no abdominal aortic aneurysm. There is no free; and no definite free fluid. No gross bowel wall thickening is seen. There is no; evidence of appendicitis.; ; IMPRESSION:; ; Essentially negative noncontrast CT abdomen and pelvis. No evidence of renal,; ureteral or bladder calculus and no evidence of hydronephrosis. No evidence of; appendicitis.; ; ; Signed by; Jeremias Walton MD 03/28/2016 07:18 P; Radiology Order: Gallbladder US Test: Gallbladder US REASON FOR EXAMINATION: pancreatitis; ; CLINICAL HISTORY: Abdominal pain.; TECHNIQUE: Realtime sonographic images were obtained in multiple projections.; COMMENTS:; The liver is of normal size, parenchyma demonstrates normal echogenicity. No discrete hepatic mass is; seen.; There is no intra or extrahepatic biliary ductal dilatation. CBD measures 2.9 mm. The gallbladder is; physiologically distended and contains a 2 mm polyp versus retained stone at the anterior nondependen; t gallbladder wall. The gallbladder wall is not thickened and there is no pericholecystic fluid. The; re is no abdominal ascites.; The right kidney measures 12.3 cm , free of hydronephrosis.; IMPRESSION:; 2 mm polyp versus retained stone at the anterior nondependent gallbladder wall.; Thank you for your kind referral of this patient.; ; Outcome: 17:54 CT Study completed. kc3 21:14 Decision to Hospitalize by Provider. ef1 22:13 Discharge Assessment: patient administered narcotics - yes. Patient was admitted to the [address] or transferred to another facility. 22:13 Property :Personal belongings accompany Pt. [facility] 22:53 The following High Risk Discharge criteria are identified: None. Admitted to Med/Surg [facility] accompanied by tech, via wheelchair, with chart. Condition: good Condition: stable. 22:55 Patient left the ED. [facility] Signatures: Dispatcher [employer] EDMS Josette Briceno, Reg Reg Yury Mann, RN RN mlb1 Edwardo Gar, GAMMA RAY OPERATOR GAMMA RAY OPERATOR dd6 Mercedez Rendon, PA-C PA-C ef1 Vivian Hammer br3 Elise Rose,RN RN seferinof Radha Fofana Joel jpb Conner, Teresa RN RN Natalie Oconnell,RN RN Florentino Moran, GAMMA RAY OPERATOR GAMMA RAY OPERATOR Nori Montes, GAMMA RAY OPERATOR GAMMA RAY OPERATOR rs6 Yamile Bliss,RN RN kc3 Danette Holland,RN RN kas2 Chart Complete MTDD
--- NOTE | 2016-03-30 23:56 | EDDOCDS ---
Physician Documentation [facility] Name: Cait Riggs Age: 45 yrs Sex: Male : 1970 Arrival Date: 03/28/2016 Time: 16:24 Bed I5 / M5 Private MD: No Pcp Disposition: 03/28/16 21:14 Hospitalization ordered by Loly Pittman for Inpatient Admission. Preliminary diagnosis are Acute pancreatitis, Other abdominal pain, Nausea and vomiting. - Bed requested for [address] [place]. - Status is Inpatient Admission. kas2 - Condition is Stable. - Problem is new. - Symptoms have improved. Historical: - Allergies: Amoxicillin (Hives); Cefuroxime (Vomit); Clindamycin (Hives); Doxycycline (Hives); lactose intolerant; PENICILLINS ("it freaks me out"); IV Dye; Protonix (Vomit); Toradol (Vomit); - Home Meds: 1. omeprazole 20 mg Oral TbEC 20 mg three times a day (Last dose: 03/28/2016) 2. ranitidine HCl 150 mg Oral tab 3 times per day (Last dose: 03/28/2016) - PMHx: abdominal hernia x2; Hiatal Hernia; GERD; Hypertension; cardiomegaly; - PSHx: Hernia repair; - Social history: Smoking status: Patient states former smoker of tobacco. No barriers to communication noted, The patient speaks fluent Montenegrin, Speaks appropriately for age. - Family history: Not pertinent. - : The pt / caregiver states he / she is not on anticoagulants. Home medication list is obtained from the patient, [employer] import data. - Exposure Risk Screening:: None identified. Vital Signs: 03/28 16:26 BP 132 / 72; Pulse 74; Resp 18 S; Temp 96.2; Pulse Ox 98% on R/A; Weight 86.18 kg / dd6 189.99 lbs (R); Height 5 ft. 10 in. (177.80 cm) (R); Pain 10/10; 18:20 Pain 4/10; kc3 18:37 BP 138 / 78; Pulse 61; Resp 18; Pulse Ox 99% ; Pain 3/10; jrd 22:15 BP 134 / 76; Pulse 74; Resp 18; Temp 97.5; Pulse Ox 98% ; Pain 9/10; ajs 22:52 BP 128 / 72; Pulse 80; Resp 20; Temp 98.0; Pulse Ox 98% ; Pain 4/10; kas2 16:26 Body Mass Index 27.26 (86.18 kg, 177.80 cm) dd6 MDM: 17:23 NS 0.9% 1000 ml IV at bolus once ordered. ef1 17:23 Ondansetron 4 mg IVP once ordered. ef1 17:23 IV Saline Lock ordered. ef1 17:23 Undress patient appropriately for examination ordered. ef1 17:23 morphine 4 mg IVP once ordered. ef1 17:24 CT ABD & PELVIS: No Contrast Ordered. EDMS 17:25 Amylase Ordered. EDMS 17:25 Basic Metabolic Profile Ordered. EDMS 17:25 CBC with Diff Ordered. EDMS 17:25 Lipase Ordered. EDMS 17:25 Liver Profile Ordered. EDMS 17:25 Urinalysis Ordered. EDMS 17:25 Urine Culture Ordered. EDMS 17:25 NOTHING BY MOUTH+DIET ordered. EDMS 17:43 Financial registration complete. dm19 17:47 GI Cocktail - (Alum-Mag Hydroxide-Simeth 30 ml, Lidocaine 10 ml, Hyoscyamine 10 ml) PO ef1 once; Pre-mixed 50mL unit dose ordered. 17:56 [facility] Payment Agreement was scanned into [employer] and attached to record. jpb 18:03 CBC with Diff Reviewed. ef1 18:03 Urinalysis Reviewed. ef1 19:30 CT ABD & PELVIS: No Contrast Reviewed. ef1 20:03 Amylase Reviewed. ef1 20:03 Basic Metabolic Profile Reviewed. ef1 20:03 Lipase Reviewed. ef1 20:03 Liver Profile Reviewed. ef1 20:36 Gallbladder US Ordered. EDMS 20:36 BED REQUEST+ADM ordered. EDMS 21:31 Admission / Observation Status ordered. EDMS 21:31 NPO DIET ordered. EDMS 21:40 COMPLETE BLOOD COUNT Ordered. EDMS 21:40 BASIC METABOLIC PROFILE Ordered. EDMS 21:50 CARDIAC RISK PROFILE Ordered. EDMS 21:51 LIPASE Ordered. EDMS 01 08:45 T-Sheet-- Draft Copy was scanned into [employer] and attached to record. gb Administered Medications: 03/28 17:49 Drug: NS 0.9% 1000 ml [sodium chloride 0.9 % intravenous solution] Route: IV; Rate: kc3 bolus; Site: left antecubital; 17:49 Drug: morphine 2 mg [morphine 4 mg/mL intravenous cartridge (0.5 mL)] {Note: pt kc3 requested partial dose. .} Route: IVP; Site: left antecubital; 18:20 Follow up: Pain 4/10 Adult kc3 17:50 Drug: Ondansetron 4 mg [ondansetron HCl 2 mg/mL intravenous solution (2 mL)] Route: kc3 IVP; Site: left antecubital; 18:20 Follow up: Response: No Adverse Reaction kc3 17:52 Drug: GI Cocktail - (Alum-Mag Hydroxide-Simeth Suspension 225 mg-200 mg-25 mg/5 mL 30 kc3 ml, Lidocaine Liquid 2 % 10 ml, Hyoscyamine Liquid 10 ml) Route: PO; 18:20 Follow up: Response: No Adverse Reaction kc3 Signatures: Dispatcher [employer] EDMS Agustin HUERTA, Nita, RN RN Josette Hickey, Rick Reg Mercedez Mejia PA-C PANayeli efMartínez Early EmilyRN RN Yamile Velazquze RN RN kc3 Danette HollandRN RN kas2 Ebony Ashley dm19 The chart was reviewed and I authenticate all verbal orders and agree with the evaluation and treatment provided.Corrections: (The following items were deleted from the chart) 20:45 20:34 GALLBLADDER US ordered. EDMS EDMS 21:50 21:40 CARDIAC RISK PROFILE ordered. EDMS EDMS 21:51 21:40 LIPASE ordered. EDMS EDMS Attachments: 17:56 [facility] Payment Agreement jpb 03/30 08:45 T-Sheet-- Draft Copy gb Chart Complete MTDD
--- NOTE | 2016-03-30 23:56 | EDDOCDS ---
Physician Documentation [facility] Name: Cait Riggs Age: 45 yrs Sex: Male : 1970 Arrival Date: 03/28/2016 Time: 16:24 Bed I5 / M5 Private MD: No Pcp Disposition: 03/28/16 21:14 Hospitalization ordered by Loly Pittman for Inpatient Admission. Preliminary diagnosis are Acute pancreatitis, Other abdominal pain, Nausea and vomiting. - Bed requested for 4 [place]. - Status is Inpatient Admission. kas2 - Condition is Stable. - Problem is new. - Symptoms have improved. Historical: - Allergies: Amoxicillin (Hives); Cefuroxime (Vomit); Clindamycin (Hives); Doxycycline (Hives); lactose intolerant; PENICILLINS ("it freaks me out"); IV Dye; Protonix (Vomit); Toradol (Vomit); - Home Meds: 1. omeprazole 20 mg Oral TbEC 20 mg three times a day (Last dose: 03/28/2016) 2. ranitidine HCl 150 mg Oral tab 3 times per day (Last dose: 03/28/2016) - PMHx: abdominal hernia x2; Hiatal Hernia; GERD; Hypertension; cardiomegaly; - PSHx: Hernia repair; - Social history: Smoking status: Patient states former smoker of tobacco. No barriers to communication noted, The patient speaks fluent [place]ib[place]ian, Speaks appropriately for age. - Family history: Not pertinent. - : The pt / caregiver states he / she is not on anticoagulants. Home medication list is obtained from the patient, [employer] import data. - Exposure Risk Screening:: None identified. Vital Signs: 03/28 16:26 BP 132 / 72; Pulse 74; Resp 18 S; Temp 96.2; Pulse Ox 98% on R/A; Weight 86.18 kg / dd6 189.99 lbs (R); Height 5 ft. 10 in. (177.80 cm) (R); Pain 10/10; 18:20 Pain 4/10; kc3 18:37 BP 138 / 78; Pulse 61; Resp 18; Pulse Ox 99% ; Pain 3/10; jrd 22:15 BP 134 / 76; Pulse 74; Resp 18; Temp 97.5; Pulse Ox 98% ; Pain 9/10; ajs 22:52 BP 128 / 72; Pulse 80; Resp 20; Temp 98.0; Pulse Ox 98% ; Pain 4/10; kas2 16:26 Body Mass Index 27.26 (86.18 kg, 177.80 cm) dd6 MDM: 17:23 NS 0.9% 1000 ml IV at bolus once ordered. ef1 17:23 Ondansetron 4 mg IVP once ordered. ef1 17:23 IV Saline Lock ordered. ef1 17:23 Undress patient appropriately for examination ordered. ef1 17:23 morphine 4 mg IVP once ordered. ef1 17:24 CT ABD & PELVIS: No Contrast Ordered. EDMS 17:25 Amylase Ordered. EDMS 17:25 Basic Metabolic Profile Ordered. EDMS 17:25 CBC with Diff Ordered. EDMS 17:25 Lipase Ordered. EDMS 17:25 Liver Profile Ordered. EDMS 17:25 Urinalysis Ordered. EDMS 17:25 Urine Culture Ordered. EDMS 17:25 NOTHING BY MOUTH+DIET ordered. EDMS 17:43 Financial registration complete. dm19 17:47 GI Cocktail - (Alum-Mag Hydroxide-Simeth 30 ml, Lidocaine 10 ml, Hyoscyamine 10 ml) PO ef1 once; Pre-mixed 50mL unit dose ordered. 17:56 [facility] [place] [place] Payment Agreement was scanned into [employer] and attached to record. jpb 18:03 CBC with Diff Reviewed. ef1 18:03 Urinalysis Reviewed. ef1 19:30 CT ABD & PELVIS: No Contrast Reviewed. ef1 20:03 Amylase Reviewed. ef1 20:03 Basic Metabolic Profile Reviewed. ef1 20:03 Lipase Reviewed. ef1 20:03 Liver Profile Reviewed. ef1 20:36 Gallbladder US Ordered. EDMS 20:36 BED REQUEST+ADM ordered. EDMS 21:31 Admission / Observation Status ordered. EDMS 21:31 NPO DIET ordered. EDMS 21:40 COMPLETE BLOOD COUNT Ordered. EDMS 21:40 BASIC METABOLIC PROFILE Ordered. EDMS 21:50 CARDIAC RISK PROFILE Ordered. EDMS 21:51 LIPASE Ordered. EDMS 01 08:45 T-Sheet-- Draft Copy was scanned into [employer] and attached to record. gb Administered Medications: 03/28 17:49 Drug: NS 0.9% 1000 ml [sodium chloride 0.9 % intravenous solution] Route: IV; Rate: kc3 bolus; Site: left antecubital; 17:49 Drug: morphine 2 mg [morphine 4 mg/mL intravenous cartridge (0.5 mL)] {Note: pt kc3 requested partial dose. .} Route: IVP; Site: left antecubital; 18:20 Follow up: Pain 4/10 Adult kc3 17:50 Drug: Ondansetron 4 mg [ondansetron HCl 2 mg/mL intravenous solution (2 mL)] Route: kc3 IVP; Site: left antecubital; 18:20 Follow up: Response: No Adverse Reaction kc3 17:52 Drug: GI Cocktail - (Alum-Mag Hydroxide-Simeth Suspension 225 mg-200 mg-25 mg/5 mL 30 kc3 ml, Lidocaine Liquid 2 % 10 ml, Hyoscyamine Liquid 10 ml) Route: PO; 18:20 Follow up: Response: No Adverse Reaction kc3 Signatures: Dispatcher [employer] EDMS Agustin HUERTA, Nita, RN RN Josette Hickey, Rick Reg Mercedez Mejia PA-C PANayeli efMartínez Early EmilyRN RN Yamile Velazquez RN RN kc3 Danette HollandRN RN kas2 Ebony Ashley dm19 The chart was reviewed and I authenticate all verbal orders and agree with the evaluation and treatment provided.Corrections: (The following items were deleted from the chart) 20:45 20:34 GALLBLADDER US ordered. EDMS EDMS 21:50 21:40 CARDIAC RISK PROFILE ordered. EDMS EDMS 21:51 21:40 LIPASE ordered. EDMS EDMS Attachments: 17:56 [facility] Payment Agreement jpb 03/30 08:45 T-Sheet-- Draft Copy gb Chart Complete MTDD
--- NOTE | 2016-04-01 14:02 | EDDOCDS ---
Physician Documentation [facility] Name: Cait Riggs Age: 45 yrs Sex: Male : 1970 Arrival Date: 03/28/2016 Time: 16:24 Bed I5 / M5 Private MD: No Pcp Disposition: 03/28/16 21:14 Hospitalization ordered by Loly Pittman for Inpatient Admission. Preliminary diagnosis are Acute pancreatitis, Other abdominal pain, Nausea and vomiting. - Bed requested for 4 [place]. - Status is Inpatient Admission. kas2 - Condition is Stable. - Problem is new. - Symptoms have improved. Historical: - Allergies: Amoxicillin (Hives); Cefuroxime (Vomit); Clindamycin (Hives); Doxycycline (Hives); lactose intolerant; PENICILLINS ("it freaks me out"); IV Dye; Protonix (Vomit); Toradol (Vomit); - Home Meds: 1. omeprazole 20 mg Oral TbEC 20 mg three times a day (Last dose: 03/28/2016) 2. ranitidine HCl 150 mg Oral tab 3 times per day (Last dose: 03/28/2016) - PMHx: abdominal hernia x2; Hiatal Hernia; GERD; Hypertension; cardiomegaly; - PSHx: Hernia repair; - Social history: Smoking status: Patient states former smoker of tobacco. No barriers to communication noted, The patient speaks fluent Croatian, Speaks appropriately for age. - Family history: Not pertinent. - : The pt / caregiver states he / she is not on anticoagulants. Home medication list is obtained from the patient, [email or web address] import data. - Exposure Risk Screening:: None identified. Vital Signs: 03/28 16:26 BP 132 / 72; Pulse 74; Resp 18 S; Temp 96.2; Pulse Ox 98% on R/A; Weight 86.18 kg / dd6 189.99 lbs (R); Height 5 ft. 10 in. (177.80 cm) (R); Pain 10/10; 18:20 Pain 4/10; kc3 18:37 BP 138 / 78; Pulse 61; Resp 18; Pulse Ox 99% ; Pain 3/10; jrd 22:15 BP 134 / 76; Pulse 74; Resp 18; Temp 97.5; Pulse Ox 98% ; Pain 9/10; ajs 22:52 BP 128 / 72; Pulse 80; Resp 20; Temp 98.0; Pulse Ox 98% ; Pain 4/10; kas2 16:26 Body Mass Index 27.26 (86.18 kg, 177.80 cm) dd6 MDM: 17:23 NS 0.9% 1000 ml IV at bolus once ordered. ef1 17:23 Ondansetron 4 mg IVP once ordered. ef1 17:23 IV Saline Lock ordered. ef1 17:23 Undress patient appropriately for examination ordered. ef1 17:23 morphine 4 mg IVP once ordered. ef1 17:24 CT ABD & PELVIS: No Contrast Ordered. EDMS 17:25 Amylase Ordered. EDMS 17:25 Basic Metabolic Profile Ordered. EDMS 17:25 CBC with Diff Ordered. EDMS 17:25 Lipase Ordered. EDMS 17:25 Liver Profile Ordered. EDMS 17:25 Urinalysis Ordered. EDMS 17:25 Urine Culture Ordered. EDMS 17:25 NOTHING BY MOUTH+DIET ordered. EDMS 17:43 Financial registration complete. dm19 17:47 GI Cocktail - (Alum-Mag Hydroxide-Simeth 30 ml, Lidocaine 10 ml, Hyoscyamine 10 ml) PO ef1 once; Pre-mixed 50mL unit dose ordered. 17:56 [facility] [place] Payment Agreement was scanned into [employer] and attached to record. jpb 18:03 CBC with Diff Reviewed. ef1 18:03 Urinalysis Reviewed. ef1 19:30 CT ABD & PELVIS: No Contrast Reviewed. ef1 20:03 Amylase Reviewed. ef1 20:03 Basic Metabolic Profile Reviewed. ef1 20:03 Lipase Reviewed. ef1 20:03 Liver Profile Reviewed. ef1 20:36 Gallbladder US Ordered. EDMS 20:36 BED REQUEST+ADM ordered. EDMS 21:31 Admission / Observation Status ordered. EDMS 21:31 NPO DIET ordered. EDMS 21:40 COMPLETE BLOOD COUNT Ordered. EDMS 21:40 BASIC METABOLIC PROFILE Ordered. EDMS 21:50 CARDIAC RISK PROFILE Ordered. EDMS 21:51 LIPASE Ordered. EDMS 01 08:45 T-Sheet-- Draft Copy was scanned into [employer] and attached to record. gb Administered Medications: 03/28 17:49 Drug: NS 0.9% 1000 ml [sodium chloride 0.9 % intravenous solution] Route: IV; Rate: kc3 bolus; Site: left antecubital; 17:49 Drug: morphine 2 mg [morphine 4 mg/mL intravenous cartridge (0.5 mL)] {Note: pt kc3 requested partial dose. .} Route: IVP; Site: left antecubital; 18:20 Follow up: Pain 4/10 Adult kc3 17:50 Drug: Ondansetron 4 mg [ondansetron HCl 2 mg/mL intravenous solution (2 mL)] Route: kc3 IVP; Site: left antecubital; 18:20 Follow up: Response: No Adverse Reaction kc3 17:52 Drug: GI Cocktail - (Alum-Mag Hydroxide-Simeth Suspension 225 mg-200 mg-25 mg/5 mL 30 kc3 ml, Lidocaine Liquid 2 % 10 ml, Hyoscyamine Liquid 10 ml) Route: PO; 18:20 Follow up: Response: No Adverse Reaction kc3 Signatures: Dispatcher [employer] EDMS Agustin HUERTA, Nita, RN RN Josette Hickey, Rick Reg Mercedez Mejia PA-C PANayeli efMartínez Early EmilyRN RN Yamile Velazquez RN RN kc3 Danette HollandRN RN kas2 Ebony Ashley dm19 The chart was reviewed and I authenticate all verbal orders and agree with the evaluation and treatment provided.Corrections: (The following items were deleted from the chart) 20:45 20:34 GALLBLADDER US ordered. EDMS EDMS 21:50 21:40 CARDIAC RISK PROFILE ordered. EDMS EDMS 21:51 21:40 LIPASE ordered. EDMS EDMS Attachments: 17:56 [facility] Payment Agreement jpb 03/30 08:45 T-Sheet-- Draft Copy gb Chart Complete MTDD
--- NOTE | 2016-04-01 14:02 | EDDOCDS ---
Nurse's Notes [facility] Name: Cait Riggs Age: 45 yrs Sex: Male : 1970 Arrival Date: 03/28/2016 Time: 16:24 Bed I5 / M5 Private MD: No Pcp Diagnosis: Acute pancreatitis;Other abdominal pain;Nausea and vomiting Presentation: 03/28 16:27 Presenting complaint: Patient states: pt c/o "epigastric pain and interstitial ead cystitis." pt reports onset of symptoms two days ago. also c/o n/v. Adult Sepsis Screening: The patient does not have new or worsening altered mentation. Patient's respiratory rate is less than 22. Systolic blood pressure is greater than 100. Patient has a qSOFA score of 0- Negative Sepsis Screen. Suicide/Homicide risk assessment- the patient denies having any suicidal and/or homicidal ideations and does not present with any other emotional, behavioral or mental health complaints. 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 Transition of care: patient was not received from another setting of care. 16:27 Acuity: JIMMY Level 3 ead 16:27 Method Of Arrival: Walkin/Carried/Asstd ead Triage Assessment: 16:29 General: Appears in no apparent distress, uncomfortable. Pain: Location: mid-sternal ead area Pain currently is 10 out of 10 on a pain scale. HIV screening NA for this visit Offered previously. Neurological: No deficits noted. Respiratory: Airway is patent Respiratory effort is even, unlabored. GI: Reports nausea, vomiting. Derm: No deficits noted. Historical: - Allergies: Amoxicillin (Hives); Cefuroxime (Vomit); Clindamycin (Hives); Doxycycline (Hives); lactose intolerant; PENICILLINS ("it freaks me out"); IV Dye; Protonix (Vomit); Toradol (Vomit); - Home Meds: 1. omeprazole 20 mg Oral TbEC 20 mg three times a day (Last dose: 03/28/2016) 2. ranitidine HCl 150 mg Oral tab 3 times per day (Last dose: 03/28/2016) - PMHx: abdominal hernia x2; Hiatal Hernia; GERD; Hypertension; cardiomegaly; - PSHx: Hernia repair; - Social history: Smoking status: Patient states former smoker of tobacco. No barriers to communication noted, The patient speaks fluent Welsh, Speaks appropriately for age. - Family history: Not pertinent. - : The pt / caregiver states he / she is not on anticoagulants. Home medication list is obtained from the patient, [employer] import data. - Exposure Risk Screening:: None identified. Screenin:52 Screening information is obtained from the patient. Fall risk: No risks identified. kc3 Assistance ADL's: requires no assistance with activities of daily living. Abuse/DV Screen: The patient / caregiver reports he/she is: not in a situation that causes fear, pain or injury. Nutritional screening: No deficits noted. home support is adequate. 22:13 Advance Directives: Currently, there is no health care proxy. There is no active DNR kas2 order. There is no living will. There is no Power of Dice Spotter. Assessment: 17:44 Adult Sepsis Screening: The patient does not have new or worsening altered mentation. dsf Patient's respiratory rate is less than 22. Systolic blood pressure is greater than 100. Patient has a qSOFA score of 0- Negative Sepsis Screen. General: Appears in no apparent distress, Behavior is appropriate for age, cooperative. Pain: Location: pelvis and chest Pain currently is 10 out of 10 on a pain scale. Quality of pain is described as pressure. Neurological: Level of Consciousness is awake, alert. Cardiovascular: Capillary refill < 3 seconds. Respiratory: Airway is patent Respiratory effort is even, unlabored, Respiratory pattern is regular, symmetrical. GI: Abdomen is flat. Derm: Skin is intact. 18:44 General: Appears in no apparent distress, Behavior is appropriate for age, cooperative. dsf Neurological: Level of Consciousness is. Cardiovascular: Capillary refill < 3 seconds. Respiratory: Airway is patent Respiratory effort is even, unlabored, Respiratory pattern is regular, symmetrical. Derm: Skin is intact, Skin is normal. 19:00 General: pt walking around room waiting for test results . dsf 20:00 General: Appears in no apparent distress, Behavior is appropriate for age, cooperative. dsf Neurological: Level of Consciousness is awake, alert. Cardiovascular: Capillary refill < 3 seconds. Respiratory: Airway is patent Respiratory effort is even, unlabored, Respiratory pattern is regular, symmetrical. Derm: Skin is intact, Skin is normal. 21:52 General: Appears in no apparent distress, comfortable, well nourished, well groomed, kas2 Behavior is appropriate for age, cooperative, . Pain: Location: pelvis and chest and mid-sternal area Pain currently is 4 out of 10 on a pain scale. Neurological: Level of Consciousness is awake, alert, Oriented to person, place, time. Cardiovascular: Capillary refill < 3 seconds Rhythm is regular. Respiratory: Airway is patent Respiratory effort is even, unlabored, Respiratory pattern is regular, symmetrical, Breath sounds are clear bilaterally. Derm: Skin is intact, is healthy with good turgor, Skin is dry, Skin is pink, warm & dry. normal, Skin temperature is warm. 22:11 General: Patient sitting up in bed watching TV. Denies pain of discomfort at this time. kas2 Appears comfortable. No apparent distress noted. Call calvo within reach. Will continue to monitor.. 22:55 GI: kas2 Vital Signs: 16:26 BP 132 / 72; Pulse 74; Resp 18 S; Temp 96.2; Pulse Ox 98% on R/A; Weight 86.18 kg (R); dd6 Height 5 ft. 10 in. (177.80 cm) (R); Pain 10/10; 18:20 Pain 4/10; kc3 18:37 BP 138 / 78; Pulse 61; Resp 18; Pulse Ox 99% ; Pain 3/10; jrd 22:15 BP 134 / 76; Pulse 74; Resp 18; Temp 97.5; Pulse Ox 98% ; Pain 9/10; ajs 22:52 BP 128 / 72; Pulse 80; Resp 20; Temp 98.0; Pulse Ox 98% ; Pain 4/10; kas2 16:26 Body Mass Index 27.26 (86.18 kg, 177.80 cm) dd6 Vitals: 16:26 Log In Time: March 28, 2016 at 16:24. RN notified that patient meets Red Flag dd6 criteria. ED Course: 16:25 Patient visited by Edwardo Gar PCA. dd6 16:25 Patient moved to Waiting dd6 16:26 No Pcp is Private Physician. dd6 16:28 Triage Initiated ead 16:41 Patient moved to Pre RCE mlb1 16:44 Patient moved to Triage 1 ttb 17:12 Mercedez [facility]end[facility] ef1 17:12 Jaymie Mehta MD is Attending Physician. ef1 17:13 Patient visited by Mercedez Rendon PA-C. ef1 17:23 Patient moved to I5 / M5 rs6 17:24 Patient moved to Triage 1 rs6 17:26 Patient moved to I5 / M5 ttb 17:33 Patient name changed from Lario\\S\\\\S\\Keely\\S\\ to Lario\\S\\ \\S\\Keely. EDMS 17:33 Pt greeted and oriented to ED. Patient advised of names of staff involved in care, rs6 location of call calvo, wait times and NPO status. Patient has correct armband on for positive identification. Placed in gown. Bed in low position. Call light in reach. Side rails up X 1. Cardiac monitoring not applicable on this patient. 17:33 Urinalysis Sent. rs6 17:33 Urine Culture Sent. rs6 17:34 Patient visited by Nori Echeverria PCA. rs6 17:44 Amylase Sent. dsf 17:44 Basic Metabolic Profile Sent. dsf 17:44 CBC with Diff Sent. dsf 17:44 Lipase Sent. dsf 17:44 Liver Profile Sent. dsf 17:44 Inserted saline lock: 18 gauge in left antecubital area The patient tolerated the dsf procedure well. 17:45 Patient visited by Elise Rose RN. dsf 17:50 The patient / caregiver is instructed regarding the plan of care and ED course. kc3 17:56 [facility] Payment Agreement was scanned into [employer] and attached to record. jpb 18:19 Patient visited by Yamile Bliss RN. kc3 18:51 Patient visited by Mercedez Rendon PA-C. ef1 19:14 CT ABD & PELVIS: No Contrast Returned. EDMS 19:22 Patient visited by Mercedez Rendon PA-C. ef1 20:02 Patient visited by Mercedez Rendon PA-C. ef1 20:05 Patient visited by Elise Rose RN. dsf 20:11 CT ABD & PELVIS: No Contrast Returned. EDMS 20:35 Patient visited by Mercedez Rendon PA-C. ef1 20:45 Patient moved to Ultrasound br3 20:52 Patient visited by Elise Rose RN. dsf 21:04 Patient moved to I5 / M5 br3 21:14 Loly Pittman is Hospitalizing Provider. ef1 21:53 Patient visited by Danette Holland RN. kas2 22:13 No procedures done that require assistance. kas2 22:15 Patient visited by Danette Holland RN. kas2 22:16 Patient visited by Radha Fofana. ajs 22:32 Gallbladder US Returned. EDMS 22:33 Patient visited by Danette Holland RN. kas2 22:55 Patient visited by Danette Holland RN. kas2 03/30 08:45 T-Sheet-- Draft Copy was scanned into [employer] and attached to record. gb Administered Medications: 03/28 17:49 Drug: NS 0.9% 1000 ml [sodium chloride 0.9 % intravenous solution] Route: IV; Rate: kc3 bolus; Site: left antecubital; 17:49 Drug: morphine 2 mg [morphine 4 mg/mL intravenous cartridge (0.5 mL)] {Note: pt kc3 requested partial dose. .} Route: IVP; Site: left antecubital; 18:20 Follow up: Pain 10 Adult kc3 17:50 Drug: Ondansetron 4 mg [ondansetron HCl 2 mg/mL intravenous solution (2 mL)] Route: kc3 IVP; Site: left antecubital; 18:20 Follow up: Response: No Adverse Reaction kc3 17:52 Drug: GI Cocktail - (Alum-Mag Hydroxide-Simeth Suspension 225 mg-200 mg-25 mg/5 mL 30 kc3 ml, Lidocaine Liquid 2 % 10 ml, Hyoscyamine Liquid 10 ml) Route: PO; 18:20 Follow up: Response: No Adverse Reaction kc3 Order Results: Lab Order: Amylase; SPEC'M 03/28/16 19:01 Test: AMYLASE; Value: 204; Range: 25-115; Abnormal: Above high normal; Units: U/L; Status: F Lab Order: Basic Metabolic Profile; SPEC'M 03/28/16 19:01 Test: GLUCOSE, FASTING; Value: 82; Range: 70-105; Units: MG/DL; Status: F Test: BLOOD UREA NITROGEN; Value: 17; Range: 7-18; Units: MG/DL; Status: F Test: CREATININE FOR GFR; Value: 0.97; Range: 0.70-1.30; Units: MG/DL; Status: F Test: GLOMERULAR FILTRATION RATE; Value: > 60.0; Range: >60; Status: F Test: SODIUM LEVEL; Value: 144; Range: 136-145; Units: MEQ/L; Status: F Test: POTASSIUM SERUM; Value: 4.7; Range: 3.5-5.1; Units: MEQ/L; Status: F Test: CHLORIDE LEVEL; Value: 107; Range: 98-107; Units: MEQ/L; Status: F Test: CARBON DIOXIDE LEVEL; Value: 31; Range: 21-32; Units: MEQ/L; Status: F Test: ANION GAP; Value: 6; Range: 8-16; Abnormal: Below low normal; Units: MEQ/L; Status: F Test: CALCIUM LEVEL; Value: 8.0; Range: 8.5-10.1; Abnormal: Below low normal; Units: MG/DL; Status: F Test Note: ; Units are mL/min/1.73 m2 Chronic Kidney Disease Staging per NKF: Stage I & II GFR >=60 Normal to Mildly Decreased Stage III GFR 30-59 Moderately Decreased Stage IV GFR 15-29 Severely Decreased Stage V GFR <15 Very Little GFR Left ESRD GFR <15 on [employer] Lab Order: CBC with Diff; SPEC'M 03/28/16 17:40 Test: WHITE BLOOD COUNT; Value: 5.0; Range: 4.0-10.0; Units: K/mm3; Status: F Test: RED BLOOD COUNT; Value: 5.91; Range: 4.30-6.10; Units: M/mm3; Status: F Test: HEMOGLOBIN; Value: 18.5; Range: 14.0-18.0; Abnormal: Above high normal; Units: g/dl; Status: F Test: HEMATOCRIT; Value: 54.9; Range: 42.0-52.0; Abnormal: Above high normal; Units: %; Status: F Test: MEAN CORPUSCULAR VOLUME; Value: 92.9; Range: 80.0-96.0; Units: fl; Status: F Test: MEAN CORPUSCULAR HEMOGLOBIN; Value: 31.4; Range: 27.0-33.0; Units: pg; Status: F Test: MEAN CORPUSCULAR HGB CONC; Value: 33.8; Range: 32.0-36.5; Units: g/dl; Status: F Test: RED CELL DISTRIBUTION WIDTH; Value: 12.7; Range: 11.5-14.5; Units: %; Status: F Test: PLATELET COUNT, AUTOMATED; Value: 134; Range: 150-450; Abnormal: Below low normal; Units: k/mm3; Status: F Test: NEUTROPHILS %; Value: 54.3; Range: 36.0-66.0; Units: %; Status: F Test: LYMPH %; Value: 31.4; Range: 24.0-44.0; Units: %; Status: F Test: MONO %; Value: 7.3; Range: 0.0-5.0; Abnormal: Above high normal; Units: %; Status: F Test: EOS %; Value: 3.9; Range: 0.0-3.0; Abnormal: Above high normal; Units: %; Status: F Test: BASO %; Value: 0.8; Range: 0.0-1.0; Units: %; Status: F Test: LARGE UNSTAINED CELL %; Value: 2.4; Range: 0.0-4.0; Units: %; Status: F Test: NEUTROPHILS #; Value: 2.7; Range: 1.8-7.7; Units: K/mm3; Status: F Test: LYMPH #; Value: 1.6; Range: 1.5-4.5; Units: K/mm3; Status: F Test: MONO #; Value: 0.4; Range: 0.0-0.8; Units: K/mm3; Status: F Test: EOS #; Value: 0.2; Range: 0.0-0.50; Units: K/mm3; Status: F Test: BASO #; Value: 0.0; Range: 0.0-0.2; Units: K/mm3; Status: F Test: LARGE UNSTAINED CELL #; Value: 0.1; Range: 0.0-0.4; Units: K/mm3; Status: F Lab Order: Lipase; SPEC'M 03/28/16 19:01 Test: LIPASE; Value: 442; Range: 73-393; Abnormal: Above high normal; Units: U/L; Status: F Lab Order: Liver Profile; SPEC'M 03/28/16 19:01 Test: AST/SGOT; Value: 17; Range: 15-37; Units: U/L; Status: F Test: ALT/SGPT; Value: 34; Range: 12-78; Units: U/L; Status: F Test: ALKALINE PHOSPHATASE; Value: 61; Range: 45-117; Units: U/L; Status: F Test: BILIRUBIN,TOTAL; Value: 0.4; Range: 0.2-1.0; Units: MG/DL; Status: F Test: BILIRUBIN,DIRECT; Value: 0.1; Range: 0.0-0.2; Units: MG/DL; Status: F Test: TOTAL PROTEIN; Value: 6.2; Range: 6.4-8.2; Abnormal: Below low normal; Units: GM/DL; Status: F Test: ALBUMIN; Value: 3.3; Range: 3.2-5.2; Units: GM/DL; Status: F Test: ALBUMIN/GLOBULIN RATIO; Value: 1.14; Range: 1.00-1.93; Status: F Lab Order: Urinalysis; [facility] 03/28/16 17:30 Test: APPEARANCE, URINE; Value: CLEAR; Range: CLEAR; Status: F Test: COLOR, URINE; Value: YELLOW; Range: YELLOW; Status: F Test: PH,URINE; Value: 5.0; Range: 5.0-9.0; Units: UNITS; Status: F Test: SPECIFIC GRAVITY URINE AUTO; Value: 1.023; Range: 1.002-1.035; Status: F Test: PROTEIN, URINE AUTO; Value: NEGATIVE; Range: NEGATIVE; Units: mg/dL; Status: F Test: GLUCOSE, URINE (UA) AUTO; Value: NEGATIVE; Range: NEGATIVE; Units: mg/dL; Status: F Test: KETONE, URINE AUTO; Value: NEGATIVE; Range: NEGATIVE; Units: mg/dL; Status: F Test: UROBILINOGEN, URINE AUTO; Value: 0.2; Range: 0.0-2.0; Units: mg/dL; Status: F Test: BILIRUBIN, URINE AUTO; Value: NEGATIVE; Range: NEGATIVE; Status: F Test: NITRITE, URINE AUTO; Value: NEGATIVE; Range: NEGATIVE; Status: F Test: LEUKOCYTE ESTERASE, URINE AUTO; Value: NEGATIVE; Range: NEGATIVE; Status: F Test: BLOOD, URINE BLOOD; Value: NEGATIVE; Range: NEGATIVE; Status: F Test: WBC, URINE AUTO; Value: 0; Range: 0-3; Units: /HPF; Status: F Test: RBC, URINE AUTO; Value: 1; Range: 0-3; Units: /HPF; Status: F Test: BACTERIA, URINE AUTO; Value: NEGATIVE; Range: NEGATIVE; Status: F Test: SQUAMOUS EPITHELIAL CELL UR AU; Value: 0; Range: 0-6; Units: /HPF; Status: F Test: MUCUS, URINE; Value: SMALL; Range: NEGATIVE; Status: F Test: HYALINE CAST, URINE AUTO; Value: 0; Range: 0-1; Units: /LPF; Status: F Lab Order: CARDIAC RISK PROFILE; SPEC'M 03/28/16 19:01 Test: TRIGLYCERIDES LEVEL; Value: 42; Range: <150; Units: MG/DL; Status: F Test: CHOLESTEROL LEVEL; Value: 127; Range: <200; Units: MG/DL; Status: F Test: HDL CHOLESTEROL; Value: 53; Range: >40; Units: MG/DL; Status: F Test: LDL CHOLESTEROL; Value: 65.6; Range: <100; Units: MG/DL; Status: F Test: NON-HDL-C; Value: 74; Units: MG/DL; Status: F Test: CHOLESTEROL RISK RATIO; Value: 2.396; Range: <5; Status: F Radiology Order: CT ABD & PELVIS: No Contrast Test: CT ABD & PELVIS: No Contrast REASON FOR EXAMINATION: Renal colic; CT ABDOMEN AND PELVIS WITHOUT CONTRAST:; ; CT abdomen and pelvis is performed without oral or IV contrast.; ; Sagittal and coronal reconstruction images are performed. Comparison is made with; prior study of 02/24/2016.; ; Visualized lung bases demonstrate no infiltrate.; ; Liver and gallbladder are grossly unremarkable. Spleen demonstrates a tiny; calcified granuloma. Adrenals, pancreas and kidneys are grossly unremarkable.; There is no evidence of renal, ureteral or bladder calculus. There is no; hydronephrosis is seen. There is no abdominal aortic aneurysm. There is no free; and no definite free fluid. No gross bowel wall thickening is seen. There is no; evidence of appendicitis.; ; IMPRESSION:; ; Essentially negative noncontrast CT abdomen and pelvis. No evidence of renal,; ureteral or bladder calculus and no evidence of hydronephrosis. No evidence of; appendicitis.; ; ; Signed by; Jeremias Walton MD 03/28/2016 07:18 P; Radiology Order: Gallbladder US Test: Gallbladder US REASON FOR EXAMINATION: pancreatitis; ; CLINICAL HISTORY: Abdominal pain.; TECHNIQUE: Realtime sonographic images were obtained in multiple projections.; COMMENTS:; The liver is of normal size, parenchyma demonstrates normal echogenicity. No discrete hepatic mass is; seen.; There is no intra or extrahepatic biliary ductal dilatation. CBD measures 2.9 mm. The gallbladder is; physiologically distended and contains a 2 mm polyp versus retained stone at the anterior nondependen; t gallbladder wall. The gallbladder wall is not thickened and there is no pericholecystic fluid. The; re is no abdominal ascites.; The right kidney measures 12.3 cm , free of hydronephrosis.; IMPRESSION:; 2 mm polyp versus retained stone at the anterior nondependent gallbladder wall.; Thank you for your kind referral of this patient.; ; Outcome: 17:54 CT Study completed. kc3 21:14 Decision to Hospitalize by Provider. ef1 22:13 Discharge Assessment: patient administered narcotics - yes. Patient was admitted to the [address] or transferred to another facility. 22:13 Property :Personal belongings accompany Pt. [facility] 22:53 The following High Risk Discharge criteria are identified: None. Admitted to Med/Surg [facility] accompanied by tech, via wheelchair, with chart. Condition: good Condition: stable. 22:55 Patient left the ED. [facility] Signatures: Dispatcher [employer] EDMS Josette Briceno, Reg Reg Yury Mann, RN RN mlb1 Edwardo Gar, [employer] dd6 Mercedez Rendon, PA-C PA-C ef1 Vivian Hammer br3 Elise Rose,RN RN seferinof Radha Fofana Joel jpb Conner, Teresa RN RN Natalie Oconnell,RN RN Florentino Moran, [employer] Nori Montes, [employer] rs6 Yamile Bliss,RN RN kc3 Danette Holland,RN RN kas2 Chart Complete MTDD
--- NOTE | 2016-04-01 14:02 | EDDOCDS ---
Physician Documentation [facility] Name: Cait Riggs Age: 45 yrs Sex: Male : 1970 Arrival Date: 03/28/2016 Time: 16:24 Bed I5 / M5 Private MD: No Pcp Disposition: 03/28/16 21:14 Hospitalization ordered by Loly Pittman for Inpatient Admission. Preliminary diagnosis are Acute pancreatitis, Other abdominal pain, Nausea and vomiting. - Bed requested for [address] [place]. - Status is Inpatient Admission. kas2 - Condition is Stable. - Problem is new. - Symptoms have improved. Historical: - Allergies: Amoxicillin (Hives); Cefuroxime (Vomit); Clindamycin (Hives); Doxycycline (Hives); lactose intolerant; PENICILLINS ("it freaks me out"); IV Dye; Protonix (Vomit); Toradol (Vomit); - Home Meds: 1. omeprazole 20 mg Oral TbEC 20 mg three times a day (Last dose: 03/28/2016) 2. ranitidine HCl 150 mg Oral tab 3 times per day (Last dose: 03/28/2016) - PMHx: abdominal hernia x2; Hiatal Hernia; GERD; Hypertension; cardiomegaly; - PSHx: Hernia repair; - Social history: Smoking status: Patient states former smoker of tobacco. No barriers to communication noted, The patient speaks fluent [place], Speaks appropriately for age. - Family history: Not pertinent. - : The pt / caregiver states he / she is not on anticoagulants. Home medication list is obtained from the patient, [employer] import data. - Exposure Risk Screening:: None identified. Vital Signs: 03/28 16:26 BP 132 / 72; Pulse 74; Resp 18 S; Temp 96.2; Pulse Ox 98% on R/A; Weight 86.18 kg / dd6 189.99 lbs (R); Height 5 ft. 10 in. (177.80 cm) (R); Pain 10/10; 18:20 Pain 4/10; kc3 18:37 BP 138 / 78; Pulse 61; Resp 18; Pulse Ox 99% ; Pain 3/10; jrd 22:15 BP 134 / 76; Pulse 74; Resp 18; Temp 97.5; Pulse Ox 98% ; Pain 9/10; ajs 22:52 BP 128 / 72; Pulse 80; Resp 20; Temp 98.0; Pulse Ox 98% ; Pain 4/10; kas2 16:26 Body Mass Index 27.26 (86.18 kg, 177.80 cm) dd6 MDM: 17:23 NS 0.9% 1000 ml IV at bolus once ordered. ef1 17:23 Ondansetron 4 mg IVP once ordered. ef1 17:23 IV Saline Lock ordered. ef1 17:23 Undress patient appropriately for examination ordered. ef1 17:23 morphine 4 mg IVP once ordered. ef1 17:24 CT ABD & PELVIS: No Contrast Ordered. EDMS 17:25 Amylase Ordered. EDMS 17:25 Basic Metabolic Profile Ordered. EDMS 17:25 CBC with Diff Ordered. EDMS 17:25 Lipase Ordered. EDMS 17:25 Liver Profile Ordered. EDMS 17:25 Urinalysis Ordered. EDMS 17:25 Urine Culture Ordered. EDMS 17:25 NOTHING BY MOUTH+DIET ordered. EDMS 17:43 Financial registration complete. dm19 17:47 GI Cocktail - (Alum-Mag Hydroxide-Simeth 30 ml, Lidocaine 10 ml, Hyoscyamine 10 ml) PO ef1 once; Pre-mixed 50mL unit dose ordered. 17:56 [facility] Payment Agreement was scanned into [employer] and attached to record. jpb 18:03 CBC with Diff Reviewed. ef1 18:03 Urinalysis Reviewed. ef1 19:30 CT ABD & PELVIS: No Contrast Reviewed. ef1 20:03 Amylase Reviewed. ef1 20:03 Basic Metabolic Profile Reviewed. ef1 20:03 Lipase Reviewed. ef1 20:03 Liver Profile Reviewed. ef1 20:36 Gallbladder US Ordered. EDMS 20:36 BED REQUEST+ADM ordered. EDMS 21:31 Admission / Observation Status ordered. EDMS 21:31 NPO DIET ordered. EDMS 21:40 COMPLETE BLOOD COUNT Ordered. EDMS 21:40 BASIC METABOLIC PROFILE Ordered. EDMS 21:50 CARDIAC RISK PROFILE Ordered. EDMS 21:51 LIPASE Ordered. EDMS 01 08:45 T-Sheet-- Draft Copy was scanned into [employer] and attached to record. gb Administered Medications: 03/28 17:49 Drug: NS 0.9% 1000 ml [sodium chloride 0.9 % intravenous solution] Route: IV; Rate: kc3 bolus; Site: left antecubital; 17:49 Drug: morphine 2 mg [morphine 4 mg/mL intravenous cartridge (0.5 mL)] {Note: pt kc3 requested partial dose. .} Route: IVP; Site: left antecubital; 18:20 Follow up: Pain 4/10 Adult kc3 17:50 Drug: Ondansetron 4 mg [ondansetron HCl 2 mg/mL intravenous solution (2 mL)] Route: kc3 IVP; Site: left antecubital; 18:20 Follow up: Response: No Adverse Reaction kc3 17:52 Drug: GI Cocktail - (Alum-Mag Hydroxide-Simeth Suspension 225 mg-200 mg-25 mg/5 mL 30 kc3 ml, Lidocaine Liquid 2 % 10 ml, Hyoscyamine Liquid 10 ml) Route: PO; 18:20 Follow up: Response: No Adverse Reaction kc3 Signatures: Dispatcher [employer] EDMS Agustin HUERTA, Nita, RN RN Josette Hickey, Rick Reg Mercedez Mejia PA-C PANayeli efMartínez Early EmilyRN RN Yamile Velazquez RN RN kc3 Danette HollandRN RN kas2 Ebony Ashley dm19 The chart was reviewed and I authenticate all verbal orders and agree with the evaluation and treatment provided.Corrections: (The following items were deleted from the chart) 20:45 20:34 GALLBLADDER US ordered. EDMS EDMS 21:50 21:40 CARDIAC RISK PROFILE ordered. EDMS EDMS 21:51 21:40 LIPASE ordered. EDMS EDMS Attachments: 17:56 [facility] Payment Agreement jpb 03/30 08:45 T-Sheet-- Draft Copy gb Chart Complete MTDD
== END 2016-03-29 13:42 | disposition home or self-care (01) | DRG 282 ==
LOC: M ED 16:24 → M ED INP 21:21 → M MSPAV 22:57
PROVIDERS: ADMIT Internal Medicine; ATTEND Internal Medicine
DX: K85.90 Acute pancreatitis without necrosis or infection, unspecified (principal); N30.10 Interstitial cystitis (chronic) without hematuria; I10 Essential (primary) hypertension; K29.70 Gastritis, unspecified, without bleeding; K21.9 Gastro-esophageal reflux disease without esophagitis; Z88.0 Allergy status to penicillin; Z88.1 Allergy status to other antibiotic agents; Z88.8 Allergy status to other drugs, medicaments and biological substances; Z88.5 Allergy status to narcotic agent; Z91.041 Radiographic dye allergy status; Z79.899 Other long term (current) drug therapy; Z87.891 Personal history of nicotine dependence

== ENCOUNTER 2016-04-14 13:54 | Emergency (ER) | payer OTHER ==
[~2016-04-14 13:54] MED LIST changes: +AZIT250T3 PO; +RANI150T PO
== END 2016-04-14 17:30 | disposition left against medical advice (07) ==
LOC: M ED 13:54
DX: R10.13 Epigastric pain (principal); Z53.20 Procedure and treatment not carried out because of patient's decision for unspecified reasons

== ENCOUNTER 2016-04-18 01:14 | Emergency (ER) | payer OTHER ==
[2016-04-18] MEDS ORDERED: MORPHINE 4 MG/ML 1ML SYRINGE As Ordered ONE (02:12)
[2016-04-18 02:18] LABS: BASO % 0.4 % (0.0-1.0); EOS # 0.2 K/mm3 (0.0-0.50); EOS % 3.2 % (0.0-3.0); LARGE UNSTAINED CELL # 0.1 K/mm3 (0.0-0.4); LARGE UNSTAINED CELL % 2.1 % (0.0-4.0); LYMPH % 42.1 % (24.0-44.0); MEAN CORPUSCULAR HEMOGLOBIN 32.3 pg (27.0-33.0); MEAN CORPUSCULAR HGB CONC 35.2 g/dl (32.0-36.5); MEAN CORPUSCULAR VOLUME 91.9 fl (80.0-96.0); MONO # 0.3 K/mm3 (0.0-0.8); MONO % 5.3 % (0.0-5.0); NEUTROPHILS # 2.2 K/mm3 (1.8-7.7); NEUTROPHILS % 46.8 % (36.0-66.0); PLATELET COUNT, AUTOMATED 127 k/mm3 (150-450); RED CELL DISTRIBUTION WIDTH 12.7 % (11.5-14.5); WHITE BLOOD COUNT 4.7 K/mm3 (4.0-10.0)
--- NOTE | 2016-04-18 02:40 | REPUSA ---
CLINICAL HISTORY: Abdominal pain. TECHNIQUE: Multiple axial, sagittal and coronal CT images were obtained through the abdomen and pelvi s without administration of oral or IV contrast material. COMMENTS: Comparison is made to the prior exam performed on 03/28/2016. The liver is of uniform attenuation without mass or defect. There is no intra or extrahepatic biliary ductal dilatation. The spleen is normal. The gallbladder is within normal limits. The pancreas is of normal contour and attenuation characteristics. There is no evidence of adrenal mass. The kidneys are normal in size, shape and configuration. No renal or ureteral calculi are identified. There is no hydroureter or hydronephrosis. Scattered calcified splenic granulomas. There is no evidence for appendicitis. There is diffuse sigmoid wall thickening. No evidence for smal l or large bowel obstruction. There is no evidence of abdominal ascites or lymphadenopathy. There is no evidence of intrinsic or extrinsic bladder mass. There is no pelvic ascites or lymphadeno dennis. Mild diffuse thickening of the bladder. Moderate large bowel fecal stasis suggestive of constipation. Images of the lung bases show no evidence of pleural or parenchymal mass. There are no pleural effusi ons. The bony structures are free of lytic or blastic lesions. Multilevel degenerative changes are seen in volving the thoracolumbar spine. Scattered calcifications are seen involving the aorta and major branches compatible with atherosclero sis. IMPRESSION: Constipation. Sigmoid colon thickening. Under distention versus mild colitis. No urolithiasis or hydronephrosis. Thank you for your kind referral of this patient.
[2016-04-18 02:44] LABS: ALBUMIN 3.5 GM/DL (3.2-5.2); ALBUMIN/GLOBULIN RATIO 1.13 (1.00-1.93); ALKALINE PHOSPHATASE 70 U/L (45-117); ALT/SGPT 39 U/L (12-78); AMYLASE 173 U/L (25-115); ANION GAP 7 MEQ/L (8-16); AST/SGOT 14 U/L (15-37); BILIRUBIN,DIRECT 0.1 MG/DL (0.0-0.2); BILIRUBIN,TOTAL 0.4 MG/DL (0.2-1.0); BLOOD UREA NITROGEN 14 MG/DL (7-18); CALCIUM LEVEL 8.4 MG/DL (8.5-10.1); CARBON DIOXIDE LEVEL 29 MEQ/L (21-32); CHLORIDE LEVEL 105 MEQ/L (98-107); CREATININE FOR GFR 1.09 MG/DL (0.70-1.30); GLOMERULAR FILTRATION RATE > 60.0 (>60); GLUCOSE, FASTING 93 MG/DL (70-105); POTASSIUM SERUM 3.9 MEQ/L (3.5-5.1); SODIUM LEVEL 141 MEQ/L (136-145); TOTAL PROTEIN 6.6 GM/DL (6.4-8.2)
[2016-04-18] MEDS ORDERED: AZITHROMYCIN INJ 500MG VIAL (J0456) As Ordered ONE (03:47)
--- NOTE | 2016-04-18 06:23 | EDDOCDS ---
Nurse's Notes [facility] Name: Cait Riggs Age: 45 yrs Sex: Male : 1970 Arrival Date: 04/18/2016 Time: 01:14 Bed 17 Private MD: Diagnosis: Lower abdominal pain, unspecified Presentation: 04/18 01:21 Presenting complaint: Patient states: Lower abdominal pain that began two days ago and lf1 is currently 10/10. Pt. reports that he has taken no meds for pain at this time. Pt also reports "severe acid reflux" reports his regular meds are not controlling his symptoms. Adult Sepsis Screening: The patient does not have new or worsening altered mentation. Patient's respiratory rate is less than 22. Systolic blood pressure is greater than 100. Patient has a qSOFA score of 0- Negative Sepsis Screen. Suicide/Homicide risk assessment- the patient denies having any suicidal and/or homicidal ideations and does not present with any other emotional, behavioral or mental health complaints. Status: Patient is not a automotive service professional or dependent. Transition of care: patient was not received from another setting of care. 01:21 Acuity: JIMMY Level 3 lf1 01:21 Method Of Arrival: Walkin/Carried/Asstd lf1 Triage Assessment: 01:25 General: Appears in no apparent distress, Behavior is cooperative. Pain: Location: lf1 epigastric area and suprapubic area Pain currently is 10 out of 10 on a pain scale. HIV screening NA for this visit Offered previously. Neurological: Level of Consciousness is awake, alert, Oriented to person, place, time. EENT: No deficits noted. Respiratory: Respiratory effort is even, unlabored. GI: Reports epigastric pain, lower abdominal pain. Derm: Skin is normal. Injury Description: No known injury. Historical: - Allergies: Amoxicillin (Hives); Cefuroxime (Vomit); Clindamycin (Hives); Doxycycline (Hives); IV Dye; PENICILLINS ("it freaks me out"); Protonix (Vomit); Toradol (Vomit); - Home Meds: 1. Maalox Oral 2. omeprazole 20 mg Oral TbEC 40 mg three times a day (Last dose: 04/17/2016 21:00) 3. Pepto-Bismol Oral as needed (Last dose: 04/17/2016 21:00) 4. ranitidine HCl 150 mg Oral tab 3 times per day (Last dose: 04/17/2016 19:00) - PMHx: abdominal hernia x2; cardiomegaly; GERD; Hiatal Hernia; Hypertension; Interstitial Cystitis; - Social history: Smoking status: Patient states former smoker of tobacco. No barriers to communication noted, The patient speaks fluent Uzbek, Speaks appropriately for age, Preferred Language: Uzbek. - Family history: Not pertinent. - : The pt / caregiver states he / she is not on anticoagulants. Home medication list is obtained from the patient. - Exposure Risk Screening:: None identified. Screenin:29 Screening information is obtained from the patient. Screening information is obtained lf1 from the patient. Fall risk: No risks identified. Assistance ADL's: requires no assistance with activities of daily living. Abuse/DV Screen: The patient / caregiver reports he/she is: not in a situation that causes fear, pain or injury. Nutritional screening: On liquid - no gluten. Advance Directives: Currently, there is no health care proxy. home support is adequate. Assessment: 02:19 General: Appears in no apparent distress, comfortable, Behavior is appropriate for age, af2 cooperative. Pain: Location: abdomen Pain currently is 10 out of 10 on a pain scale. Neurological: Level of Consciousness is awake, alert, obeys commands. Respiratory: Airway is patent Respiratory effort is even, unlabored. GI: Abdomen is non- distended Bowel sounds present X 4 quads. Abd is tender to palpation X 4 quads. Reports lower abdominal pain, acid reflux. : Reports burning with urination pain in suprapubic area. Derm: No deficits noted. Skin is normal. 03:01 General: Appears in no apparent distress, comfortable, Behavior is cooperative, pt af2 resting quietly on stretcher with eyes closed.. 04:00 General: Appears in no apparent distress, comfortable, Behavior is appropriate for age, af2 cooperative, pt updated regarding plan of care. denies any needs at this time.. Neurological: Level of Consciousness is awake, alert, obeys commands. Respiratory: Airway is patent Respiratory effort is even, unlabored. Derm: Skin is normal. 05:01 General: Appears in no apparent distress, comfortable, Behavior is appropriate for age, af2 cooperative, pt lying on stretcher resting quietly. will continue to monitor. offers no compalints.. 06:18 General: Appears in no apparent distress, comfortable, Behavior is appropriate for age, af2 cooperative. Neurological: Level of Consciousness is awake, alert, obeys commands. Respiratory: Airway is patent Respiratory effort is even, unlabored. Derm: Skin is normal. Vital Signs: 01:25 BP 124 / 58 LA Sitting (auto/); Pulse 75; Resp 16; Temp 97.4(T); Pulse Ox 99% on R/A; lf1 Weight 81.65 kg; Height 5 ft. 11 in. (180.34 cm) (R); Pain 10/10; 06:19 BP 112 / 59; Pulse 71; Resp 18 S; Temp 95.9(O); Pulse Ox 99% on R/A; af2 01:25 Body Mass Index 25.10 (81.65 kg, 180.34 cm) [facility] Vitals: 01:25 Log In Time: April 18, 2016 at 01:15. 1 ED Course: 01:15 Patient visited by Pippa Samayoa Reg. hs2 01:15 Patient moved to Waiting hs2 01:23 Triage Initiated lf1 01:30 Patient moved to 17 lf1 01:31 Daniel Lam MD is Attending Physician. br1 01:33 Piper Starr RN is Primary Nurse. cf2 01:33 Patient visited by Piper Starr,DORIS. cf2 01:42 Patient visited by Daniel Lam MD. br1 02:11 Amylase Sent. af2 02:12 Lipase Sent. af2 02:12 Liver Profile Sent. af2 02:12 BMP Sent. af2 02:12 CBC with Diff Sent. af2 02:18 Patient visited by Amira Bojorquez RN. af2 02:20 Patient visited by Amira Bojorquez RN. af2 02:20 Inserted saline lock: 20 gauge in left antecubital area and blood collected. The af2 patient tolerated the procedure well. 03:00 CT ABD & PELVIS: No Contrast Returned. EDMS 03:01 Patient visited by Amira Bojorquez RN. af2 03:01 Patient visited by Amira Bojorquez RN. af2 03:07 Patient name changed from Lario\\S\\\\S\\Keely\\S\\ to Lario\\S\\ \\S\\Keely. EDMS 03:15 [facility] Payment Agreement was scanned into [employer] and attached to record. pm4 03:34 Patient visited by Amira Bojorquez RN. af2 04:02 Patient visited by Amira Bojorquez RN. af2 05:00 Patient visited by Amira Bojorquez RN. af2 05:01 Patient visited by Amira Bojorquez RN. af2 05:36 Patient visited by Amira Bojorquez RN. af2 06:19 Discontinued IV lock intact, bleeding controlled, pressure dressing applied, No af2 redness/swelling at site. No procedures done that require assistance. 06:21 The patient / caregiver is instructed regarding the plan of care and ED course. af2 Administered Medications: 02:18 Drug: morphine 4 mg [morphine 4 mg/mL intravenous cartridge (1 mL)] Route: IVP; Site: af2 left antecubital; 04:00 Follow up: Response: Pain is decreased af2 02:20 Drug: NS 0.9% 1000 ml [sodium chloride 0.9 % intravenous solution] Route: IV; Rate: af2 bolus; Site: left antecubital; 03:59 Drug: azithromycin 500 mg [azithromycin 500 mg intravenous solution] Route: IVPB; af2 Infused Over: 1 hrs; Site: left antecubital; 05:18 Follow up: IV Status: Completed infusion af2 05:16 CANCELLED (Other Intervention Used): GI Cocktail - (Alum-Mag Hydroxide-Simeth br1 Suspension 225 mg-200 mg-25 mg/5 mL 30 ml, Lidocaine Liquid 2 % 10 ml, Hyoscyamine Liquid 10 ml) PO once; Pre-mixed 50mL unit dose 05:36 Drug: NS 0.9% 1000 ml [sodium chloride 0.9 % intravenous solution] Route: IV; Rate: 150 af2 mL/hr; Site: left antecubital; Order Results: Lab Order: CBC with Diff; SPEC'M 04/18/16 02:10 Test: WHITE BLOOD COUNT; Value: 4.7; Range: 4.0-10.0; Units: K/mm3; Status: F Test: RED BLOOD COUNT; Value: 5.27; Range: 4.30-6.10; Units: M/mm3; Status: F Test: HEMOGLOBIN; Value: 17.0; Range: 14.0-18.0; Units: g/dl; Status: F Test: HEMATOCRIT; Value: 48.5; Range: 42.0-52.0; Units: %; Status: F Test: MEAN CORPUSCULAR VOLUME; Value: 91.9; Range: 80.0-96.0; Units: fl; Status: F Test: MEAN CORPUSCULAR HEMOGLOBIN; Value: 32.3; Range: 27.0-33.0; Units: pg; Status: F Test: MEAN CORPUSCULAR HGB CONC; Value: 35.2; Range: 32.0-36.5; Units: g/dl; Status: F Test: RED CELL DISTRIBUTION WIDTH; Value: 12.7; Range: 11.5-14.5; Units: %; Status: F Test: PLATELET COUNT, AUTOMATED; Value: 127; Range: 150-450; Abnormal: Below low normal; Units: k/mm3; Status: F Test: NEUTROPHILS %; Value: 46.8; Range: 36.0-66.0; Units: %; Status: F Test: LYMPH %; Value: 42.1; Range: 24.0-44.0; Units: %; Status: F Test: MONO %; Value: 5.3; Range: 0.0-5.0; Abnormal: Above high normal; Units: %; Status: F Test: EOS %; Value: 3.2; Range: 0.0-3.0; Abnormal: Above high normal; Units: %; Status: F Test: BASO %; Value: 0.4; Range: 0.0-1.0; Units: %; Status: F Test: LARGE UNSTAINED CELL %; Value: 2.1; Range: 0.0-4.0; Units: %; Status: F Test: NEUTROPHILS #; Value: 2.2; Range: 1.8-7.7; Units: K/mm3; Status: F Test: LYMPH #; Value: 2.0; Range: 1.5-4.5; Units: K/mm3; Status: F Test: MONO #; Value: 0.3; Range: 0.0-0.8; Units: K/mm3; Status: F Test: EOS #; Value: 0.2; Range: 0.0-0.50; Units: K/mm3; Status: F Test: BASO #; Value: 0.0; Range: 0.0-0.2; Units: K/mm3; Status: F Test: LARGE UNSTAINED CELL #; Value: 0.1; Range: 0.0-0.4; Units: K/mm3; Status: F Lab Order: BMP; SPEC'04/18/16 02:10 Test: GLUCOSE, FASTING; Value: 93; Range: 70-105; Units: MG/DL; Status: F Test: BLOOD UREA NITROGEN; Value: 14; Range: 7-18; Units: MG/DL; Status: F Test: CREATININE FOR GFR; Value: 1.09; Range: 0.70-1.30; Units: MG/DL; Status: F Test: GLOMERULAR FILTRATION RATE; Value: > 60.0; Range: >60; Status: F Test: SODIUM LEVEL; Value: 141; Range: 136-145; Units: MEQ/L; Status: F Test: POTASSIUM SERUM; Value: 3.9; Range: 3.5-5.1; Units: MEQ/L; Status: F Test: CHLORIDE LEVEL; Value: 105; Range: 98-107; Units: MEQ/L; Status: F Test: CARBON DIOXIDE LEVEL; Value: 29; Range: 21-32; Units: MEQ/L; Status: F Test: ANION GAP; Value: 7; Range: 8-16; Abnormal: Below low normal; Units: MEQ/L; Status: F Test: CALCIUM LEVEL; Value: 8.4; Range: 8.5-10.1; Abnormal: Below low normal; Units: MG/DL; Status: F Test Note: ; Units are mL/min/1.73 m2 Chronic Kidney Disease Staging per NKF: Stage I & II GFR >=60 Normal to Mildly Decreased Stage III GFR 30-59 Moderately Decreased Stage IV GFR 15-29 Severely Decreased Stage V GFR <15 Very Little GFR Left ESRD GFR <15 on INBOUND CALL CENTER AGENT Lab Order: Liver Profile; SPEC'M 04/18/16 02:10 Test: AST/SGOT; Value: 14; Range: 15-37; Abnormal: Below low normal; Units: U/L; Status: F Test: ALT/SGPT; Value: 39; Range: 12-78; Units: U/L; Status: F Test: ALKALINE PHOSPHATASE; Value: 70; Range: 45-117; Units: U/L; Status: F Test: BILIRUBIN,TOTAL; Value: 0.4; Range: 0.2-1.0; Units: MG/DL; Status: F Test: BILIRUBIN,DIRECT; Value: 0.1; Range: 0.0-0.2; Units: MG/DL; Status: F Test: TOTAL PROTEIN; Value: 6.6; Range: 6.4-8.2; Units: GM/DL; Status: F Test: ALBUMIN; Value: 3.5; Range: 3.2-5.2; Units: GM/DL; Status: F Test: ALBUMIN/GLOBULIN RATIO; Value: 1.13; Range: 1.00-1.93; Status: F Lab Order: Lipase; [facility] 04/18/16 02:10 Test: LIPASE; Value: 144; Range: 73-393; Units: U/L; Status: F Lab Order: Amylase; [facility] 04/18/16 02:10 Test: AMYLASE; Value: 173; Range: 25-115; Abnormal: Above high normal; Units: U/L; Status: F Lab Order: Urinalysis; [facility] 04/18/16 05:02 Test: APPEARANCE, URINE; Value: CLEAR; Range: CLEAR; Status: F Test: COLOR, URINE; Value: YELLOW; Range: YELLOW; Status: F Test: PH,URINE; Value: 5.0; Range: 5.0-9.0; Units: UNITS; Status: F Test: SPECIFIC GRAVITY URINE AUTO; Value: 1.028; Range: 1.002-1.035; Status: F Test: PROTEIN, URINE AUTO; Value: NEGATIVE; Range: NEGATIVE; Units: mg/dL; Status: F Test: GLUCOSE, URINE (UA) AUTO; Value: NEGATIVE; Range: NEGATIVE; Units: mg/dL; Status: F Test: KETONE, URINE AUTO; Value: TRACE; Range: NEGATIVE; Abnormal: Above high normal; Units: mg/dL; Status: F Test: UROBILINOGEN, URINE AUTO; Value: 2.0; Range: 0.0-2.0; Abnormal: Above high normal; Units: mg/dL; Status: F Test: BILIRUBIN, URINE AUTO; Value: NEGATIVE; Range: NEGATIVE; Status: F Test: NITRITE, URINE AUTO; Value: NEGATIVE; Range: NEGATIVE; Status: F Test: LEUKOCYTE ESTERASE, URINE AUTO; Value: NEGATIVE; Range: NEGATIVE; Status: F Test: BLOOD, URINE BLOOD; Value: NEGATIVE; Range: NEGATIVE; Status: F Test: WBC, URINE AUTO; Value: 0; Range: 0-3; Units: /HPF; Status: F Test: RBC, URINE AUTO; Value: 1; Range: 0-3; Units: /HPF; Status: F Test: BACTERIA, URINE AUTO; Value: NEGATIVE; Range: NEGATIVE; Status: F Test: SQUAMOUS EPITHELIAL CELL UR AU; Value: 0; Range: 0-6; Units: /HPF; Status: F Test: MUCUS, URINE; Value: SMALL; Range: NEGATIVE; Status: F Test: HYALINE CAST, URINE AUTO; Value: 0; Range: 0-1; Units: /LPF; Status: F Radiology Order: CT ABD & PELVIS: No Contrast Test: CT ABD & PELVIS: No Contrast REASON FOR EXAMINATION: Renal colic; ; CLINICAL HISTORY: Abdominal pain.; TECHNIQUE: Multiple axial, sagittal and coronal CT images were obtained through the abdomen and pelvi; s without administration of oral or IV contrast material.; COMMENTS:; Comparison is made to the prior exam performed on 03/28/2016.; The liver is of uniform attenuation without mass or defect. There is no intra or extrahepatic biliary; ductal dilatation. The spleen is normal. The gallbladder is within normal limits. The pancreas is of; normal contour and attenuation characteristics. There is no evidence of adrenal mass.; The kidneys are normal in size, shape and configuration. No renal or ureteral calculi are identified.; There is no hydroureter or hydronephrosis. Scattered calcified splenic granulomas.; There is no evidence for appendicitis. There is diffuse sigmoid wall thickening. No evidence for smal; l or large bowel obstruction. There is no evidence of abdominal ascites or lymphadenopathy.; There is no evidence of intrinsic or extrinsic bladder mass. There is no pelvic ascites or lymphadeno; dennis. Mild diffuse thickening of the bladder.; Moderate large bowel fecal stasis suggestive of constipation.; Images of the lung bases show no evidence of pleural or parenchymal mass. There are no pleural effusi; ons.; The bony structures are free of lytic or blastic lesions. Multilevel degenerative changes are seen in; volving the thoracolumbar spine.; Scattered calcifications are seen involving the aorta and major branches compatible with atherosclero; sis.; IMPRESSION:; Constipation.; Sigmoid colon thickening. Under distention versus mild colitis.; No urolithiasis or hydronephrosis.; Thank you for your kind referral of this patient.; ; Outcome: 05:52 Discharge ordered by Provider. br1 06:20 Discharge Assessment: Patient awake, alert and oriented x 3. No cognitive and/or af2 functional deficits noted. Patient verbalized understanding of disposition instructions. patient administered narcotics - no. The following High Risk Discharge criteria are identified: None. Discharged to home ambulatory. Condition: stable. Discharge instructions given to patient, Instructed on discharge instructions, follow up and referral plans. medication usage, no driving heavy equipment, no drinking with medication, Demonstrated understanding of instructions, medications, Pt was receptive of discharge instructions/ teaching. No special radiology studies were completed. Property :Personal belongings accompany Pt. 06:21 Patient left the ED. af2 Signatures: Dispatcher [employer] EDMS Farrah Bean,RN RN lf1 Daniel Lam MD MD br1 Amira Bojorquez RN RN af2 Pippa Samayoa, Reg Reg hs2 Piper StarrRN RN cf2 Yazan Muniz, Reg Reg pm4 MTDD
--- NOTE | 2016-04-18 06:23 | EDDOCDS ---
Physician Documentation [facility] Name: Cait Riggs Age: 45 yrs Sex: Male : 1970 Arrival Date: 04/18/2016 Time: :14 Bed 17 Private MD: Disposition: 04/18/16 05:52 Discharged to Home/Self Care. Impression: Lower abdominal pain, unspecified. - Condition is Stable. - Discharge Instructions: Abdominal Pain, Adult. - Prescriptions for Tylenol- Codeine #3 300-30 mg Oral Tablet - take 2 tablet by ORAL route every 6 hours As needed MDD: 4 tabs; 6 tablet. - Medication Reconciliation, Local Pharmacy Hours form. - Follow up: Private Physician; When: 1 - 2 days; Reason: Recheck today's complaints. - Problem is new. - Symptoms are resolved. - Notes: You were seen in the ED for abdominal pain. CT scan showed constipation and colon thickening but no other acute findings. Bloodwork and urine tests were otherwise unrevealing. As you are feeling better you may return home to be seen for recheck by your primary doctor this week - please call today to arrange to be seen. You may take Tylenol with codeine as needed for pain (no driving or operating machinery while on this medicine). Return to the ED for any uncontrolled pain, fever, inability to tolerate oral foods or liquids or any other concerns. Historical: - Allergies: Amoxicillin (Hives); Cefuroxime (Vomit); Clindamycin (Hives); Doxycycline (Hives); IV Dye; PENICILLINS ("it freaks me out"); Protonix (Vomit); Toradol (Vomit); - Home Meds: 1. Maalox Oral 2. omeprazole 20 mg Oral TbEC 40 mg three times a day (Last dose: 04/17/2016 21:00) 3. Pepto-Bismol Oral as needed (Last dose: 04/17/2016 21:00) 4. ranitidine HCl 150 mg Oral tab 3 times per day (Last dose: 04/17/2016 19:00) - PMHx: abdominal hernia x2; cardiomegaly; GERD; Hiatal Hernia; Hypertension; Interstitial Cystitis; - Social history: Smoking status: Patient states former smoker of tobacco. No barriers to communication noted, The patient speaks fluent Czech, Speaks appropriately for age, Preferred Language: Czech. - Family history: Not pertinent. - : The pt / caregiver states he / she is not on anticoagulants. Home medication list is obtained from the patient. - Exposure Risk Screening:: None identified. Vital Signs: 04/18 01:25 BP 124 / 58 LA Sitting (auto/); Pulse 75; Resp 16; Temp 97.4(T); Pulse Ox 99% on R/A; lf1 Weight 81.65 kg / 180.01 lbs; Height 5 ft. 11 in. (180.34 cm) (R); Pain 10/10; 06:19 BP 112 / 59; Pulse 71; Resp 18 S; Temp 95.9(O); Pulse Ox 99% on R/A; af2 01:25 Body Mass Index 25.10 (81.65 kg, 180.34 cm) lf1 MDM: 01:32 IV Saline Lock ordered. br1 01:33 CBC with Diff Ordered. EDMS 01:33 BMP Ordered. EDMS 01:33 Liver Profile Ordered. EDMS 01:33 Lipase Ordered. EDMS 01:33 Amylase Ordered. EDMS 01:43 morphine 4 mg IVP once ordered. br1 01:43 Urinalysis Ordered. EDMS 01:43 Urine Culture Ordered. EDMS 01:44 CT ABD & PELVIS: No Contrast Ordered. EDMS 02:19 NS 0.9% 1000 ml IV at bolus once ordered. br1 02:33 Financial registration complete. pm4 02:44 CBC with Diff Reviewed. br1 03:15 [facility] Payment Agreement was scanned into [employer] and attached to record. pm4 03:41 BMP Reviewed. br1 03:41 Liver Profile Reviewed. br1 03:41 Amylase Reviewed. br1 03:41 Lipase Reviewed. br1 03:41 CT ABD & PELVIS: No Contrast Reviewed. br1 03:45 azithromycin 500 mg IVPB once over 1 hrs; dilute in 250mL of D5W or NS ordered. br1 05:13 NS 0.9% 1000 ml IV at 150 mL/hr continuous ordered. br1 05:48 Urinalysis Reviewed. br1 Administered Medications: 02:18 Drug: morphine 4 mg [morphine 4 mg/mL intravenous cartridge (1 mL)] Route: IVP; Site: af2 left antecubital; 04:00 Follow up: Response: Pain is decreased af2 02:20 Drug: NS 0.9% 1000 ml [sodium chloride 0.9 % intravenous solution] Route: IV; Rate: af2 bolus; Site: left antecubital; 03:59 Drug: azithromycin 500 mg [azithromycin 500 mg intravenous solution] Route: IVPB; af2 Infused Over: 1 hrs; Site: left antecubital; 05:18 Follow up: IV Status: Completed infusion af2 05:16 CANCELLED (Other Intervention Used): GI Cocktail - (Alum-Mag Hydroxide-Simeth br1 Suspension 225 mg-200 mg-25 mg/5 mL 30 ml, Lidocaine Liquid 2 % 10 ml, Hyoscyamine Liquid 10 ml) PO once; Pre-mixed 50mL unit dose 05:36 Drug: NS 0.9% 1000 ml [sodium chloride 0.9 % intravenous solution] Route: IV; Rate: 150 af2 mL/hr; Site: left antecubital; Signatures: Dispatcher [employer] EDVT Farrah Bean RN RN lf1 Daniel Lam MD MD br1 Amira Bojorquez RN RN af2 Yazan Muniz, Reg Reg pm4 The chart was reviewed and I authenticate all verbal orders and agree with the evaluation and treatment provided.Corrections: (The following items were deleted from the chart) 05:16 05:13 GI Cocktail - (Alum-Mag Hydroxide-Simeth 30 ml, Lidocaine 10 ml, Hyoscyamine 10 br1 ml) PO once; Pre-mixed 50mL unit dose ordered. br1 Attachments: 03:15 [facility] Payment Agreement pm4 MTDD
--- NOTE | 2016-04-20 07:23 | EDDOCDS ---
Physician Documentation [facility] Name: Cait Riggs Age: 45 yrs Sex: Male : 1970 Arrival Date: 04/18/2016 Time: :14 Bed 17 Private MD: Disposition: 04/18/16 05:52 Discharged to Home/Self Care. Impression: Lower abdominal pain, unspecified. - Condition is Stable. - Discharge Instructions: Abdominal Pain, Adult. - Prescriptions for Tylenol- Codeine #3 300-30 mg Oral Tablet - take 2 tablet by ORAL route every 6 hours As needed MDD: 4 tabs; 6 tablet. - Medication Reconciliation, Local Pharmacy Hours form. - Follow up: Private Physician; When: 1 - 2 days; Reason: Recheck today's complaints. - Problem is new. - Symptoms are resolved. - Notes: You were seen in the ED for abdominal pain. CT scan showed constipation and colon thickening but no other acute findings. Bloodwork and urine tests were otherwise unrevealing. As you are feeling better you may return home to be seen for recheck by your primary doctor this week - please call today to arrange to be seen. You may take Tylenol with codeine as needed for pain (no driving or operating machinery while on this medicine). Return to the ED for any uncontrolled pain, fever, inability to tolerate oral foods or liquids or any other concerns. Historical: - Allergies: Amoxicillin (Hives); Cefuroxime (Vomit); Clindamycin (Hives); Doxycycline (Hives); IV Dye; PENICILLINS ("it freaks me out"); Protonix (Vomit); Toradol (Vomit); - Home Meds: 1. Maalox Oral 2. omeprazole 20 mg Oral TbEC 40 mg three times a day (Last dose: 04/17/2016 21:00) 3. Pepto-Bismol Oral as needed (Last dose: 04/17/2016 21:00) 4. ranitidine HCl 150 mg Oral tab 3 times per day (Last dose: 04/17/2016 19:00) - PMHx: abdominal hernia x2; cardiomegaly; GERD; Hiatal Hernia; Hypertension; Interstitial Cystitis; - Social history: Smoking status: Patient states former smoker of tobacco. No barriers to communication noted, The patient speaks fluent Ugandan, Speaks appropriately for age, Preferred Language: Ugandan. - Family history: Not pertinent. - : The pt / caregiver states he / she is not on anticoagulants. Home medication list is obtained from the patient. - Exposure Risk Screening:: None identified. Vital Signs: 04/18 01:25 BP 124 / 58 LA Sitting (auto/); Pulse 75; Resp 16; Temp 97.4(T); Pulse Ox 99% on R/A; lf1 Weight 81.65 kg / 180.01 lbs; Height 5 ft. 11 in. (180.34 cm) (R); Pain 10/10; 06:19 BP 112 / 59; Pulse 71; Resp 18 S; Temp 95.9(O); Pulse Ox 99% on R/A; af2 01:25 Body Mass Index 25.10 (81.65 kg, 180.34 cm) lf1 MDM: 01:32 IV Saline Lock ordered. br1 01:33 CBC with Diff Ordered. EDMS 01:33 BMP Ordered. EDMS 01:33 Liver Profile Ordered. EDMS 01:33 Lipase Ordered. EDMS 01:33 Amylase Ordered. EDMS 01:43 morphine 4 mg IVP once ordered. br1 01:43 Urinalysis Ordered. EDMS 01:43 Urine Culture Ordered. EDMS 01:44 CT ABD & PELVIS: No Contrast Ordered. EDMS 02:19 NS 0.9% 1000 ml IV at bolus once ordered. br1 02:33 Financial registration complete. pm4 02:44 CBC with Diff Reviewed. br1 03:15 [facility] was scanned into [employer] and attached to record. pm4 03:41 BMP Reviewed. br1 03:41 Liver Profile Reviewed. br1 03:41 Amylase Reviewed. br1 03:41 Lipase Reviewed. br1 03:41 CT ABD & PELVIS: No Contrast Reviewed. br1 03:45 azithromycin 500 mg IVPB once over 1 hrs; dilute in 250mL of D5W or NS ordered. br1 05:13 NS 0.9% 1000 ml IV at 150 mL/hr continuous ordered. br1 05:48 Urinalysis Reviewed. br1 13:49 T-Sheet-- Draft Copy was scanned into [employer] and attached to record. gb 13:50 Radiology Report was scanned into [employer] and attached to record. gb Administered Medications: 02:18 Drug: morphine 4 mg [morphine 4 mg/mL intravenous cartridge (1 mL)] Route: IVP; Site: af2 left antecubital; 04:00 Follow up: Response: Pain is decreased af2 02:20 Drug: NS 0.9% 1000 ml [sodium chloride 0.9 % intravenous solution] Route: IV; Rate: af2 bolus; Site: left antecubital; 03:59 Drug: azithromycin 500 mg [azithromycin 500 mg intravenous solution] Route: IVPB; af2 Infused Over: 1 hrs; Site: left antecubital; 05:18 Follow up: IV Status: Completed infusion af2 05:16 CANCELLED (Other Intervention Used): GI Cocktail - (Alum-Mag Hydroxide-Simeth br1 Suspension 225 mg-200 mg-25 mg/5 mL 30 ml, Lidocaine Liquid 2 % 10 ml, Hyoscyamine Liquid 10 ml) PO once; Pre-mixed 50mL unit dose 05:36 Drug: NS 0.9% 1000 ml [sodium chloride 0.9 % intravenous solution] Route: IV; Rate: 150 af2 mL/hr; Site: left antecubital; Signatures: Dispatcher [employer] EDWA Josette Briceno, Reg Reg gb Farrah Bean RN RN lf1 Daniel Lam MD MD br1 Amira Bojorquez RN RN af2 Yazan Muniz, Reg Reg pm4 The chart was reviewed and I authenticate all verbal orders and agree with the evaluation and treatment provided.Corrections: (The following items were deleted from the chart) 05:16 05:13 GI Cocktail - (Alum-Mag Hydroxide-Simeth 30 ml, Lidocaine 10 ml, Hyoscyamine 10 br1 ml) PO once; Pre-mixed 50mL unit dose ordered. br1 Attachments: 03:15 [facility] Payment Agreement pm4 13:49 T-Sheet-- Draft Copy gb Chart Complete MTDD
--- NOTE | 2016-04-20 07:23 | EDDOCDS ---
Nurse's Notes [facility] Name: Cait Riggs Age: 45 yrs Sex: Male : 1970 Arrival Date: 04/18/2016 Time: 01:14 Bed 17 Private MD: Diagnosis: Lower abdominal pain, unspecified Presentation: 04/18 01:21 Presenting complaint: Patient states: Lower abdominal pain that began two days ago and lf1 is currently 10/10. Pt. reports that he has taken no meds for pain at this time. Pt also reports "severe acid reflux" reports his regular meds are not controlling his symptoms. Adult Sepsis Screening: The patient does not have new or worsening altered mentation. Patient's respiratory rate is less than 22. Systolic blood pressure is greater than 100. Patient has a qSOFA score of 0- Negative Sepsis Screen. Suicide/Homicide risk assessment- the patient denies having any suicidal and/or homicidal ideations and does not present with any other emotional, behavioral or mental health complaints. Status: Patient is not a special service officer or dependent. Transition of care: patient was not received from another setting of care. 01:21 Acuity: JIMMY Level 3 lf1 01:21 Method Of Arrival: Walkin/Carried/Asstd lf1 Triage Assessment: 01:25 General: Appears in no apparent distress, Behavior is cooperative. Pain: Location: lf1 epigastric area and suprapubic area Pain currently is 10 out of 10 on a pain scale. HIV screening NA for this visit Offered previously. Neurological: Level of Consciousness is awake, alert, Oriented to person, place, time. EENT: No deficits noted. Respiratory: Respiratory effort is even, unlabored. GI: Reports epigastric pain, lower abdominal pain. Derm: Skin is normal. Injury Description: No known injury. Historical: - Allergies: Amoxicillin (Hives); Cefuroxime (Vomit); Clindamycin (Hives); Doxycycline (Hives); IV Dye; PENICILLINS ("it freaks me out"); Protonix (Vomit); Toradol (Vomit); - Home Meds: 1. Maalox Oral 2. omeprazole 20 mg Oral TbEC 40 mg three times a day (Last dose: 04/17/2016 21:00) 3. Pepto-Bismol Oral as needed (Last dose: 04/17/2016 21:00) 4. ranitidine HCl 150 mg Oral tab 3 times per day (Last dose: 04/17/2016 19:00) - PMHx: abdominal hernia x2; cardiomegaly; GERD; Hiatal Hernia; Hypertension; Interstitial Cystitis; - Social history: Smoking status: Patient states former smoker of tobacco. No barriers to communication noted, The patient speaks fluent Gambian, Speaks appropriately for age, Preferred Language: Gambian. - Family history: Not pertinent. - : The pt / caregiver states he / she is not on anticoagulants. Home medication list is obtained from the patient. - Exposure Risk Screening:: None identified. Screenin:29 Screening information is obtained from the patient. Screening information is obtained lf1 from the patient. Fall risk: No risks identified. Assistance ADL's: requires no assistance with activities of daily living. Abuse/DV Screen: The patient / caregiver reports he/she is: not in a situation that causes fear, pain or injury. Nutritional screening: On liquid - no gluten. Advance Directives: Currently, there is no health care proxy. home support is adequate. Assessment: 02:19 General: Appears in no apparent distress, comfortable, Behavior is appropriate for age, af2 cooperative. Pain: Location: abdomen Pain currently is 10 out of 10 on a pain scale. Neurological: Level of Consciousness is awake, alert, obeys commands. Respiratory: Airway is patent Respiratory effort is even, unlabored. GI: Abdomen is non- distended Bowel sounds present X 4 quads. Abd is tender to palpation X 4 quads. Reports lower abdominal pain, acid reflux. : Reports burning with urination pain in suprapubic area. Derm: No deficits noted. Skin is normal. 03:01 General: Appears in no apparent distress, comfortable, Behavior is cooperative, pt af2 resting quietly on stretcher with eyes closed.. 04:00 General: Appears in no apparent distress, comfortable, Behavior is appropriate for age, af2 cooperative, pt updated regarding plan of care. denies any needs at this time.. Neurological: Level of Consciousness is awake, alert, obeys commands. Respiratory: Airway is patent Respiratory effort is even, unlabored. Derm: Skin is normal. 05:01 General: Appears in no apparent distress, comfortable, Behavior is appropriate for age, af2 cooperative, pt lying on stretcher resting quietly. will continue to monitor. offers no compalints.. 06:18 General: Appears in no apparent distress, comfortable, Behavior is appropriate for age, af2 cooperative. Neurological: Level of Consciousness is awake, alert, obeys commands. Respiratory: Airway is patent Respiratory effort is even, unlabored. Derm: Skin is normal. Vital Signs: 01:25 BP 124 / 58 LA Sitting (auto/); Pulse 75; Resp 16; Temp 97.4(T); Pulse Ox 99% on R/A; lf1 Weight 81.65 kg; Height 5 ft. 11 in. (180.34 cm) (R); Pain 10/10; 06:19 BP 112 / 59; Pulse 71; Resp 18 S; Temp 95.9(O); Pulse Ox 99% on R/A; af2 01:25 Body Mass Index 25.10 (81.65 kg, 180.34 cm) [facility] Vitals: 01:25 Log In Time: April 18, 2016 at 01:15. 1 ED Course: 01:15 Patient visited by Pippa Samayoa Reg. hs2 01:15 Patient moved to Waiting hs2 01:23 Triage Initiated lf1 01:30 Patient moved to 17 lf1 01:31 Daniel Lam MD is Attending Physician. br1 01:33 Piper Starr RN is Primary Nurse. cf2 01:33 Patient visited by Piper Starr,DORIS. cf2 01:42 Patient visited by Daniel Lam MD. br1 02:11 Amylase Sent. af2 02:12 Lipase Sent. af2 02:12 Liver Profile Sent. af2 02:12 BMP Sent. af2 02:12 CBC with Diff Sent. af2 02:18 Patient visited by Amira Bojorquez RN. af2 02:20 Patient visited by Amira Bojorquez RN. af2 02:20 Inserted saline lock: 20 gauge in left antecubital area and blood collected. The af2 patient tolerated the procedure well. 03:00 CT ABD & PELVIS: No Contrast Returned. EDMS 03:01 Patient visited by Amira Bojorquez RN. af2 03:01 Patient visited by Amira Bojorquez RN. af2 03:07 Patient name changed from Lario\\S\\\\S\\Keely\\S\\ to Lario\\S\\ \\S\\Keely. EDMS 03:15 [facility] Payment Agreement was scanned into [employer] and attached to record. pm4 03:34 Patient visited by Amira Bojorquez RN. af2 04:02 Patient visited by Amira Bojorquez RN. af2 05:00 Patient visited by Amira Bojorquez RN. af2 05:01 Patient visited by Amira Bojorquez RN. af2 05:36 Patient visited by Amira Bojorquez RN. af2 06:19 Discontinued IV lock intact, bleeding controlled, pressure dressing applied, No af2 redness/swelling at site. No procedures done that require assistance. 06:21 The patient / caregiver is instructed regarding the plan of care and ED course. af2 13:49 T-Sheet-- Draft Copy was scanned into [employer] and attached to record. gb 13:50 Radiology Report was scanned into [employer] and attached to record. gb Administered Medications: 02:18 Drug: morphine 4 mg [morphine 4 mg/mL intravenous cartridge (1 mL)] Route: IVP; Site: af2 left antecubital; 04:00 Follow up: Response: Pain is decreased af2 02:20 Drug: NS 0.9% 1000 ml [sodium chloride 0.9 % intravenous solution] Route: IV; Rate: af2 bolus; Site: left antecubital; 03:59 Drug: azithromycin 500 mg [azithromycin 500 mg intravenous solution] Route: IVPB; af2 Infused Over: 1 hrs; Site: left antecubital; 05:18 Follow up: IV Status: Completed infusion af2 05:16 CANCELLED (Other Intervention Used): GI Cocktail - (Alum-Mag Hydroxide-Simeth br1 Suspension 225 mg-200 mg-25 mg/5 mL 30 ml, Lidocaine Liquid 2 % 10 ml, Hyoscyamine Liquid 10 ml) PO once; Pre-mixed 50mL unit dose 05:36 Drug: NS 0.9% 1000 ml [sodium chloride 0.9 % intravenous solution] Route: IV; Rate: 150 af2 mL/hr; Site: left antecubital; Order Results: Lab Order: CBC with Diff; SPEC'M 04/18/16 02:10 Test: WHITE BLOOD COUNT; Value: 4.7; Range: 4.0-10.0; Units: K/mm3; Status: F Test: RED BLOOD COUNT; Value: 5.27; Range: 4.30-6.10; Units: M/mm3; Status: F Test: HEMOGLOBIN; Value: 17.0; Range: 14.0-18.0; Units: g/dl; Status: F Test: HEMATOCRIT; Value: 48.5; Range: 42.0-52.0; Units: %; Status: F Test: MEAN CORPUSCULAR VOLUME; Value: 91.9; Range: 80.0-96.0; Units: fl; Status: F Test: MEAN CORPUSCULAR HEMOGLOBIN; Value: 32.3; Range: 27.0-33.0; Units: pg; Status: F Test: MEAN CORPUSCULAR HGB CONC; Value: 35.2; Range: 32.0-36.5; Units: g/dl; Status: F Test: RED CELL DISTRIBUTION WIDTH; Value: 12.7; Range: 11.5-14.5; Units: %; Status: F Test: PLATELET COUNT, AUTOMATED; Value: 127; Range: 150-450; Abnormal: Below low normal; Units: k/mm3; Status: F Test: NEUTROPHILS %; Value: 46.8; Range: 36.0-66.0; Units: %; Status: F Test: LYMPH %; Value: 42.1; Range: 24.0-44.0; Units: %; Status: F Test: MONO %; Value: 5.3; Range: 0.0-5.0; Abnormal: Above high normal; Units: %; Status: F Test: EOS %; Value: 3.2; Range: 0.0-3.0; Abnormal: Above high normal; Units: %; Status: F Test: BASO %; Value: 0.4; Range: 0.0-1.0; Units: %; Status: F Test: LARGE UNSTAINED CELL %; Value: 2.1; Range: 0.0-4.0; Units: %; Status: F Test: NEUTROPHILS #; Value: 2.2; Range: 1.8-7.7; Units: K/mm3; Status: F Test: LYMPH #; Value: 2.0; Range: 1.5-4.5; Units: K/mm3; Status: F Test: MONO #; Value: 0.3; Range: 0.0-0.8; Units: K/mm3; Status: F Test: EOS #; Value: 0.2; Range: 0.0-0.50; Units: K/mm3; Status: F Test: BASO #; Value: 0.0; Range: 0.0-0.2; Units: K/mm3; Status: F Test: LARGE UNSTAINED CELL #; Value: 0.1; Range: 0.0-0.4; Units: K/mm3; Status: F Lab Order: BMP; SPEC'M 04/18/16 02:10 Test: GLUCOSE, FASTING; Value: 93; Range: 70-105; Units: MG/DL; Status: F Test: BLOOD UREA NITROGEN; Value: 14; Range: 7-18; Units: MG/DL; Status: F Test: CREATININE FOR GFR; Value: 1.09; Range: 0.70-1.30; Units: MG/DL; Status: F Test: GLOMERULAR FILTRATION RATE; Value: > 60.0; Range: >60; Status: F Test: SODIUM LEVEL; Value: 141; Range: 136-145; Units: MEQ/L; Status: F Test: POTASSIUM SERUM; Value: 3.9; Range: 3.5-5.1; Units: MEQ/L; Status: F Test: CHLORIDE LEVEL; Value: 105; Range: 98-107; Units: MEQ/L; Status: F Test: CARBON DIOXIDE LEVEL; Value: 29; Range: 21-32; Units: MEQ/L; Status: F Test: ANION GAP; Value: 7; Range: 8-16; Abnormal: Below low normal; Units: MEQ/L; Status: F Test: CALCIUM LEVEL; Value: 8.4; Range: 8.5-10.1; Abnormal: Below low normal; Units: MG/DL; Status: F Test Note: ; Units are mL/min/1.73 m2 Chronic Kidney Disease Staging per NKF: Stage I & II GFR >=60 Normal to Mildly Decreased Stage III GFR 30-59 Moderately Decreased Stage IV GFR 15-29 Severely Decreased Stage V GFR <15 Very Little GFR Left ESRD GFR <15 on COATER HELPER Lab Order: Liver Profile; SPEC'M 04/18/16 02:10 Test: AST/SGOT; Value: 14; Range: 15-37; Abnormal: Below low normal; Units: U/L; Status: F Test: ALT/SGPT; Value: 39; Range: 12-78; Units: U/L; Status: F Test: ALKALINE PHOSPHATASE; Value: 70; Range: 45-117; Units: U/L; Status: F Test: BILIRUBIN,TOTAL; Value: 0.4; Range: 0.2-1.0; Units: MG/DL; Status: F Test: BILIRUBIN,DIRECT; Value: 0.1; Range: 0.0-0.2; Units: MG/DL; Status: F Test: TOTAL PROTEIN; Value: 6.6; Range: 6.4-8.2; Units: GM/DL; Status: F Test: ALBUMIN; Value: 3.5; Range: 3.2-5.2; Units: GM/DL; Status: F Test: ALBUMIN/GLOBULIN RATIO; Value: 1.13; Range: 1.00-1.93; Status: F Lab Order: Lipase; [facility] 04/18/16 02:10 Test: LIPASE; Value: 144; Range: 73-393; Units: U/L; Status: F Lab Order: Amylase; [facility] 04/18/16 02:10 Test: AMYLASE; Value: 173; Range: 25-115; Abnormal: Above high normal; Units: U/L; Status: F Lab Order: Urinalysis; [facility] 04/18/16 05:02 Test: APPEARANCE, URINE; Value: CLEAR; Range: CLEAR; Status: F Test: COLOR, URINE; Value: YELLOW; Range: YELLOW; Status: F Test: PH,URINE; Value: 5.0; Range: 5.0-9.0; Units: UNITS; Status: F Test: SPECIFIC GRAVITY URINE AUTO; Value: 1.028; Range: 1.002-1.035; Status: F Test: PROTEIN, URINE AUTO; Value: NEGATIVE; Range: NEGATIVE; Units: mg/dL; Status: F Test: GLUCOSE, URINE (UA) AUTO; Value: NEGATIVE; Range: NEGATIVE; Units: mg/dL; Status: F Test: KETONE, URINE AUTO; Value: TRACE; Range: NEGATIVE; Abnormal: Above high normal; Units: mg/dL; Status: F Test: UROBILINOGEN, URINE AUTO; Value: 2.0; Range: 0.0-2.0; Abnormal: Above high normal; Units: mg/dL; Status: F Test: BILIRUBIN, URINE AUTO; Value: NEGATIVE; Range: NEGATIVE; Status: F Test: NITRITE, URINE AUTO; Value: NEGATIVE; Range: NEGATIVE; Status: F Test: LEUKOCYTE ESTERASE, URINE AUTO; Value: NEGATIVE; Range: NEGATIVE; Status: F Test: BLOOD, URINE BLOOD; Value: NEGATIVE; Range: NEGATIVE; Status: F Test: WBC, URINE AUTO; Value: 0; Range: 0-3; Units: /HPF; Status: F Test: RBC, URINE AUTO; Value: 1; Range: 0-3; Units: /HPF; Status: F Test: BACTERIA, URINE AUTO; Value: NEGATIVE; Range: NEGATIVE; Status: F Test: SQUAMOUS EPITHELIAL CELL UR AU; Value: 0; Range: 0-6; Units: /HPF; Status: F Test: MUCUS, URINE; Value: SMALL; Range: NEGATIVE; Status: F Test: HYALINE CAST, URINE AUTO; Value: 0; Range: 0-1; Units: /LPF; Status: F Lab Order: Urine Culture; SPEC'M 04/18/16 05:02 Test: URINE CULTURE; Value: <EXTERNAL COMMENT eCWMed> FULL REPORT IN LAB NOTES (eCW and [employer]ent).; Status: F Test: URINE CULTURE; Value: URINE CULTURE RESULT NO GROWTH CLINICAL SIGNIFICANCE 1 ORGANISM; Status: F Radiology Order: CT ABD & PELVIS: No Contrast Test: CT ABD & PELVIS: No Contrast REASON FOR EXAMINATION: Renal colic; ; CLINICAL HISTORY: Abdominal pain.; TECHNIQUE: Multiple axial, sagittal and coronal CT images were obtained through the abdomen and pelvi; s without administration of oral or IV contrast material.; COMMENTS:; Comparison is made to the prior exam performed on 03/28/2016.; The liver is of uniform attenuation without mass or defect. There is no intra or extrahepatic biliary; ductal dilatation. The spleen is normal. The gallbladder is within normal limits. The pancreas is of; normal contour and attenuation characteristics. There is no evidence of adrenal mass.; The kidneys are normal in size, shape and configuration. No renal or ureteral calculi are identified.; There is no hydroureter or hydronephrosis. Scattered calcified splenic granulomas.; There is no evidence for appendicitis. There is diffuse sigmoid wall thickening. No evidence for smal; l or large bowel obstruction. There is no evidence of abdominal ascites or lymphadenopathy.; There is no evidence of intrinsic or extrinsic bladder mass. There is no pelvic ascites or lymphadeno; dennis. Mild diffuse thickening of the bladder.; Moderate large bowel fecal stasis suggestive of constipation.; Images of the lung bases show no evidence of pleural or parenchymal mass. There are no pleural effusi; ons.; The bony structures are free of lytic or blastic lesions. Multilevel degenerative changes are seen in; volving the thoracolumbar spine.; Scattered calcifications are seen involving the aorta and major branches compatible with atherosclero; sis.; IMPRESSION:; Constipation.; Sigmoid colon thickening. Under distention versus mild colitis.; No urolithiasis or hydronephrosis.; Thank you for your kind referral of this patient.; ; Outcome: 05:52 Discharge ordered by Provider. br1 06:20 Discharge Assessment: Patient awake, alert and oriented x 3. No cognitive and/or af2 functional deficits noted. Patient verbalized understanding of disposition instructions. patient administered narcotics - no. The following High Risk Discharge criteria are identified: None. Discharged to home ambulatory. Condition: stable. Discharge instructions given to patient, Instructed on discharge instructions, follow up and referral plans. medication usage, no driving heavy equipment, no drinking with medication, Demonstrated understanding of instructions, medications, Pt was receptive of discharge instructions/ teaching. No special radiology studies were completed. Property :Personal belongings accompany Pt. 06:21 Patient left the ED. af2 Signatures: Dispatcher [employer] EDNC Josette Briceno, Reg Reg gb Farrah Bean,RN RN lf1 Daniel Lam MD MD br1 Amira BojorquezRN RN af2 Pippa Samayoa, Reg Reg hs2 Piper Starr,RN RN cf2 Yazan Muniz, Reg Reg pm4 Chart Complete MTDD
--- NOTE | 2016-04-20 07:23 | EDDOCDS ---
Physician Documentation [facility] Name: Cait Riggs Age: 45 yrs Sex: Male : 1970 Arrival Date: 04/18/2016 Time: :14 Bed 17 Private MD: Disposition: 04/18/16 05:52 Discharged to Home/Self Care. Impression: Lower abdominal pain, unspecified. - Condition is Stable. - Discharge Instructions: Abdominal Pain, Adult. - Prescriptions for Tylenol- Codeine #3 300-30 mg Oral Tablet - take 2 tablet by ORAL route every 6 hours As needed MDD: 4 tabs; 6 tablet. - Medication Reconciliation, Local Pharmacy Hours form. - Follow up: Private Physician; When: 1 - 2 days; Reason: Recheck today's complaints. - Problem is new. - Symptoms are resolved. - Notes: You were seen in the ED for abdominal pain. CT scan showed constipation and colon thickening but no other acute findings. Bloodwork and urine tests were otherwise unrevealing. As you are feeling better you may return home to be seen for recheck by your primary doctor this week - please call today to arrange to be seen. You may take Tylenol with codeine as needed for pain (no driving or operating machinery while on this medicine). Return to the ED for any uncontrolled pain, fever, inability to tolerate oral foods or liquids or any other concerns. Historical: - Allergies: Amoxicillin (Hives); Cefuroxime (Vomit); Clindamycin (Hives); Doxycycline (Hives); IV Dye; PENICILLINS ("it freaks me out"); Protonix (Vomit); Toradol (Vomit); - Home Meds: 1. Maalox Oral 2. omeprazole 20 mg Oral TbEC 40 mg three times a day (Last dose: 04/17/2016 21:00) 3. Pepto-Bismol Oral as needed (Last dose: 04/17/2016 21:00) 4. ranitidine HCl 150 mg Oral tab 3 times per day (Last dose: 04/17/2016 19:00) - PMHx: abdominal hernia x2; cardiomegaly; GERD; Hiatal Hernia; Hypertension; Interstitial Cystitis; - Social history: Smoking status: Patient states former smoker of tobacco. No barriers to communication noted, The patient speaks fluent American, Speaks appropriately for age, Preferred Language: American. - Family history: Not pertinent. - : The pt / caregiver states he / she is not on anticoagulants. Home medication list is obtained from the patient. - Exposure Risk Screening:: None identified. Vital Signs: 04/18 01:25 BP 124 / 58 LA Sitting (auto/); Pulse 75; Resp 16; Temp 97.4(T); Pulse Ox 99% on R/A; lf1 Weight 81.65 kg / 180.01 lbs; Height 5 ft. 11 in. (180.34 cm) (R); Pain 10/10; 06:19 BP 112 / 59; Pulse 71; Resp 18 S; Temp 95.9(O); Pulse Ox 99% on R/A; af2 01:25 Body Mass Index 25.10 (81.65 kg, 180.34 cm) lf1 MDM: 01:32 IV Saline Lock ordered. br1 01:33 CBC with Diff Ordered. EDMS 01:33 BMP Ordered. EDMS 01:33 Liver Profile Ordered. EDMS 01:33 Lipase Ordered. EDMS 01:33 Amylase Ordered. EDMS 01:43 morphine 4 mg IVP once ordered. br1 01:43 Urinalysis Ordered. EDMS 01:43 Urine Culture Ordered. EDMS 01:44 CT ABD & PELVIS: No Contrast Ordered. EDMS 02:19 NS 0.9% 1000 ml IV at bolus once ordered. br1 02:33 Financial registration complete. pm4 02:44 CBC with Diff Reviewed. br1 03:15 [facility] Payment Agreement was scanned into [employer] and attached to record. pm4 03:41 BMP Reviewed. br1 03:41 Liver Profile Reviewed. br1 03:41 Amylase Reviewed. br1 03:41 Lipase Reviewed. br1 03:41 CT ABD & PELVIS: No Contrast Reviewed. br1 03:45 azithromycin 500 mg IVPB once over 1 hrs; dilute in 250mL of D5W or NS ordered. br1 05:13 NS 0.9% 1000 ml IV at 150 mL/hr continuous ordered. br1 05:48 Urinalysis Reviewed. br1 13:49 T-Sheet-- Draft Copy was scanned into [employer] and attached to record. gb 13:50 Radiology Report was scanned into [employer] and attached to record. gb Administered Medications: 02:18 Drug: morphine 4 mg [morphine 4 mg/mL intravenous cartridge (1 mL)] Route: IVP; Site: af2 left antecubital; 04:00 Follow up: Response: Pain is decreased af2 02:20 Drug: NS 0.9% 1000 ml [sodium chloride 0.9 % intravenous solution] Route: IV; Rate: af2 bolus; Site: left antecubital; 03:59 Drug: azithromycin 500 mg [azithromycin 500 mg intravenous solution] Route: IVPB; af2 Infused Over: 1 hrs; Site: left antecubital; 05:18 Follow up: IV Status: Completed infusion af2 05:16 CANCELLED (Other Intervention Used): GI Cocktail - (Alum-Mag Hydroxide-Simeth br1 Suspension 225 mg-200 mg-25 mg/5 mL 30 ml, Lidocaine Liquid 2 % 10 ml, Hyoscyamine Liquid 10 ml) PO once; Pre-mixed 50mL unit dose 05:36 Drug: NS 0.9% 1000 ml [sodium chloride 0.9 % intravenous solution] Route: IV; Rate: 150 af2 mL/hr; Site: left antecubital; Signatures: Dispatcher [employer] EDSD Josette Briceno, Reg Reg gb Farrah Bean RN RN lf1 Daniel Lam MD MD br1 Amira Bojorquez RN RN af2 Yazan Muniz, Reg Reg pm4 The chart was reviewed and I authenticate all verbal orders and agree with the evaluation and treatment provided.Corrections: (The following items were deleted from the chart) 05:16 05:13 GI Cocktail - (Alum-Mag Hydroxide-Simeth 30 ml, Lidocaine 10 ml, Hyoscyamine 10 br1 ml) PO once; Pre-mixed 50mL unit dose ordered. br1 Attachments: 03:15 [facility] Payment Agreement pm4 13:49 T-Sheet-- Draft Copy gb Chart Complete MTDD
== END 2016-04-18 06:21 | disposition home or self-care (01) ==
LOC: M ED 01:14
DX: R10.30 Lower abdominal pain, unspecified (principal); R30.0 Dysuria; R11.2 Nausea with vomiting, unspecified; R19.7 Diarrhea, unspecified; I10 Essential (primary) hypertension; K21.9 Gastro-esophageal reflux disease without esophagitis; K44.9 Diaphragmatic hernia without obstruction or gangrene; I51.7 Cardiomegaly; N30.10 Interstitial cystitis (chronic) without hematuria; K46.9 Unspecified abdominal hernia without obstruction or gangrene; Z79.899 Other long term (current) drug therapy; Z88.0 Allergy status to penicillin; Z88.1 Allergy status to other antibiotic agents; Z88.8 Allergy status to other drugs, medicaments and biological substances; Z91.041 Radiographic dye allergy status; Z87.891 Personal history of nicotine dependence
CPT/HCPCS: 36415; 74176; 80048; 80076; 81001; 82150; 83690; 85025; 87086; 96365; 96375; 99284; J0456

== ENCOUNTER 2016-05-02 20:09 | Emergency (ER) | payer OTHER ==
[2016-05-02] MEDS ORDERED: ONDANSETRON 4MG/2ML VIAL (J2405) As Ordered ONE (21:20)
[2016-05-02] MEDS ORDERED: MORPHINE 4 MG/ML 1ML SYRINGE As Ordered ONE (21:20)
[2016-05-02 21:25] LABS: BASO % 0.5 % (0.0-1.0); EOS # 0.1 K/mm3 (0.0-0.50); EOS % 2.4 % (0.0-3.0); LARGE UNSTAINED CELL # 0.1 K/mm3 (0.0-0.4); LARGE UNSTAINED CELL % 2.7 % (0.0-4.0); LYMPH # 2.4 K/mm3 (1.5-4.5); LYMPH % 46.7 % (24.0-44.0); MEAN CORPUSCULAR HEMOGLOBIN 31.1 pg (27.0-33.0); MEAN CORPUSCULAR HGB CONC 33.5 g/dl (32.0-36.5); MEAN CORPUSCULAR VOLUME 92.8 fl (80.0-96.0); MONO # 0.2 K/mm3 (0.0-0.8); MONO % 4.6 % (0.0-5.0); NEUTROPHILS # 2.2 K/mm3 (1.8-7.7); NEUTROPHILS % 43.1 % (36.0-66.0); PLATELET COUNT, AUTOMATED 130 k/mm3 (150-450); RED CELL DISTRIBUTION WIDTH 12.7 % (11.5-14.5); WHITE BLOOD COUNT 5.1 K/mm3 (4.0-10.0)
[2016-05-02] MEDS ORDERED: cefTRIAXone SOD 1 GM VIAL (J0696) As Ordered ONE (21:49)
[2016-05-02] MEDS ORDERED: AZITHROMYCIN 250 MG TAB As Ordered ONE (21:49)
[2016-05-02 22:00] LABS: ALBUMIN 3.8 GM/DL (3.2-5.2); ALBUMIN/GLOBULIN RATIO 1.15 (1.00-1.93); ALKALINE PHOSPHATASE 64 U/L (45-117); ALT/SGPT 37 U/L (12-78); AMYLASE 173 U/L (25-115); ANION GAP 7 MEQ/L (8-16); AST/SGOT 15 U/L (15-37); BILIRUBIN,DIRECT 0.1 MG/DL (0.0-0.2); BILIRUBIN,TOTAL 0.4 MG/DL (0.2-1.0); BLOOD UREA NITROGEN 20 MG/DL (7-18); CALCIUM LEVEL 9.1 MG/DL (8.5-10.1); CARBON DIOXIDE LEVEL 30 MEQ/L (21-32); CHLORIDE LEVEL 103 MEQ/L (98-107); CREATININE FOR GFR 1.03 MG/DL (0.70-1.30); GLOMERULAR FILTRATION RATE > 60.0 (>60); GLUCOSE, FASTING 81 MG/DL (70-105); POTASSIUM SERUM 4.4 MEQ/L (3.5-5.1); SODIUM LEVEL 140 MEQ/L (136-145); TOTAL PROTEIN 7.1 GM/DL (6.4-8.2)
[2016-05-02] MEDS ORDERED: GI COCKTAIL 50ML BTL(HYOSCYAMINE/MAALOX/LIDOCAINE VISCOUS)(1:3:1) As Ordered ONE (22:40)
--- NOTE | 2016-05-02 23:15 | EDDOCDS ---
Physician Documentation [facility] Name: Cait Riggs Age: 45 yrs Sex: Male : 1970 Arrival Date: 05/02/2016 Time: 20:09 Bed 15 Private MD: Nita Piña C Disposition: 05/02/16 22:54 Discharged to Home/Self Care. Impression: Abdominal and pelvic pain, Dysuria. - Condition is Stable. - Discharge Instructions: Abdominal Pain, Adult. - Prescriptions for Ultram 50 mg Oral Tablet - take 1 tablet by ORAL route every 6 hours As needed MDD: 4 tabs; 20 tablet. Zofran 4 mg Oral Tablet - take 1 tablet by ORAL route 4 times per day As needed; 10 tablet. - Medication Reconciliation, Local Pharmacy Hours form. - Follow up: Nita Piña; When: As needed; Reason: Recheck today's complaints, Continuance of care. - Problem is an ongoing problem. - Symptoms are unchanged. Historical: - Allergies: Amoxicillin (Hives); Cefuroxime (Vomit); Clindamycin (Hives); Doxycycline (Hives); IV Dye; PENICILLINS ("it freaks me out"); Protonix (Vomit); Toradol (Vomit); - Home Meds: 1. Maalox Oral 2. omeprazole 20 mg Oral TbEC 20 mg three times a day 3. Pepto-Bismol Oral as needed 4. ranitidine HCl 150 mg Oral tab 3 times per day - PMHx: Hiatal Hernia; Hypertension; Interstitial Cystitis; GERD; cardiomegaly; - PSHx: Hernia repair; - Social history: Smoking status: Patient states was never smoker of tobacco. No barriers to communication noted, The patient speaks fluent Nigerien, Speaks appropriately for age. - Family history: Not pertinent. - : The pt / caregiver states he / she is not on anticoagulants. Home medication list is obtained from the patient. - Exposure Risk Screening:: None identified. Vital Signs: 05/02 20:11 BP 117 / 66; Pulse 69; Resp 18 S; Temp 97.3(O); Pulse Ox 100% on R/A; Weight 86.18 kg / gr2 189.99 lbs (R); Height 5 ft. 10 in. (177.80 cm) (R); Pain 8/10; 22:45 BP 122 / 58; Pulse 74; Resp 18; Pulse Ox 98% on R/A; Pain 8/10; tm5 23:11 BP 118 / 64; Pulse 79; Resp 18; Temp 98.3(O); Pulse Ox 100% on R/A; Pain 3/10; tm5 20:11 Body Mass Index 27.26 (86.18 kg, 177.80 cm) gr2 MDM: 20:51 ECG WITH READING ER PHYS+CARDIAG ordered. EDMS 21:02 NS 0.9% 1000 ml IV at bolus once ordered. ke 21:02 Ondansetron 4 mg IVP once ordered. ke 21:02 IV Saline Lock ordered. ke 21:02 Undress patient appropriately for examination ordered. ke 21:03 morphine 4 mg IVP every 30 minutes; Document pain score/vitals after each dose (Hold if ke SBP < 90mmHg) x2 ordered. 21:03 Amylase Ordered. EDMS 21:03 Basic Metabolic Profile Ordered. EDMS 21:03 CBC with Diff Ordered. EDMS 21:03 Lipase Ordered. EDMS 21:03 Liver Profile Ordered. EDMS 21:03 ETOH Ordered. EDMS 21:04 UA Ordered. EDMS 21:04 Abdomen, Flat\\E\\Upright,PA Chest Ordered. EDMS 21:04 NOTHING BY MOUTH+DIET ordered. EDMS 21:42 cefTRIAXone 1 grams IVPB once over 30 mins; dilute in 50mL of NS or D5W ordered. ke 21:42 azithromycin 1 grams PO once ordered. ke 21:43 Chlamydia & GC Amplification Ordered. EDMS 21:43 Urine Culture Ordered. EDMS 22:20 Financial registration complete. zo 22:26 [facility] Payment Agreement was scanned into [employer] and attached to record. zo 22:28 GI Cocktail - (Alum-Mag Hydroxide-Simeth 30 ml, Lidocaine 10 ml, Hyoscyamine 10 ml) PO ke once; Pre-mixed 50mL unit dose ordered. Administered Medications: 21:10 Drug: Ondansetron 4 mg [ondansetron HCl 2 mg/mL intravenous solution (2 mL)] Route: mgs IVP; Site: left antecubital; 22:45 Follow up: Response: Nausea is resolved; No Adverse Reaction tm5 21:18 Drug: NS 0.9% 1000 ml [sodium chloride 0.9 % intravenous solution] Route: IV; Rate: mgs bolus; Site: left antecubital; 23:14 Follow up: IV Status: Completed infusion; IV Intake: 1000ml tm5 22:02 Drug: cefTRIAXone 1 grams [ceftriaxone 1 gram solution for injection] Route: IVPB; mgs Infused Over: 30 mins; Site: left antecubital; 22:44 Follow up: Response: No Adverse Reaction; IV Status: Completed infusion; IV Intake: [id number] 22:02 Drug: azithromycin 1 grams [azithromycin 250 mg tablet (4 tabs)] Route: PO; mgs 22:40 Follow up: Response: No Adverse Reaction tm5 22:44 Follow up: Response: No Adverse Reaction tm5 22:09 Not Given (Patient Refused): morphine 4 mg IVP every 30 minutes; Document pain mgs score/vitals after each dose (Hold if SBP < 90mmHg) x2 22:44 Drug: GI Cocktail - (Alum-Mag Hydroxide-Simeth Suspension 225 mg-200 mg-25 mg/5 mL 30 tm5 ml, Lidocaine Liquid 2 % 10 ml, Hyoscyamine Liquid 10 ml) Route: PO; 23:11 Follow up: Response: No Adverse Reaction; Pain is decreased tm5 Signatures: Dispatcher [employer] EDMS Pasha Ford, MARKET GARDENER MARKET GARDENER Ro Crum Nikkole, RN RN nn1 Kimberley Simms RN RN tm5 Chun Blanchard RN mgs The chart was reviewed and I authenticate all verbal orders and agree with the evaluation and treatment provided.Attachments: : [facility] Payment Agreement zo MTDD
--- NOTE | 2016-05-02 23:15 | EDDOCDS ---
Nurse's Notes [facility] Name: Cait Riggs Age: 45 yrs Sex: Male : 1970 Arrival Date: 05/02/2016 Time: 20:09 Bed 15 Private MD: Nita Piña C Diagnosis: Abdominal and pelvic pain;Dysuria Presentation: 05/02 20:14 Presenting complaint: Patient states: he has been having substernal chest pain and nn1 severe acid reflux. States pains began this morning. States ranitidine, omeprazole, TUMS, maalox is not working. Adult Sepsis Screening: The patient does not have new or worsening altered mentation. Patient's respiratory rate is less than 22. Systolic blood pressure is greater than 100. Patient has a qSOFA score of 0- Negative Sepsis Screen. Suicide/Homicide risk assessment- the patient denies having any suicidal and/or homicidal ideations and does not present with any other emotional, behavioral or mental health complaints. Status: Patient is not a industrial gas servicer or dependent. Transition of care: patient was not received from another setting of care. 20:14 Acuity: IJMMY Level 3 nn1 20:14 Method Of Arrival: Walkin/Carried/Asstd nn1 Triage Assessment: 20:17 General: Appears uncomfortable, Behavior is appropriate for age, cooperative. Pain: nn1 Location: xyphoid area, mid-sternal area and epigastric area Pain currently is 10 out of 10 on a pain scale. Quality of pain is described as burning. HIV screening NA for this visit Offered previously. The patient is triaged at the bedside. See Assessment in Nurses Notes section of ED record. Neurological: Level of Consciousness is awake, alert, obeys commands. GI: Abdomen is non- distended Reports epigastric pain, nausea. GI: Reports vomiting. Derm: Skin is pink, warm & dry. Historical: - Allergies: Amoxicillin (Hives); Cefuroxime (Vomit); Clindamycin (Hives); Doxycycline (Hives); IV Dye; PENICILLINS ("it freaks me out"); Protonix (Vomit); Toradol (Vomit); - Home Meds: 1. Maalox Oral 2. omeprazole 20 mg Oral TbEC 20 mg three times a day 3. Pepto-Bismol Oral as needed 4. ranitidine HCl 150 mg Oral tab 3 times per day - PMHx: Hiatal Hernia; Hypertension; Interstitial Cystitis; GERD; cardiomegaly; - PSHx: Hernia repair; - Social history: Smoking status: Patient states was never smoker of tobacco. No barriers to communication noted, The patient speaks fluent Faroese, Speaks appropriately for age. - Family history: Not pertinent. - : The pt / caregiver states he / she is not on anticoagulants. Home medication list is obtained from the patient. - Exposure Risk Screening:: None identified. Screenin:54 Screening information is obtained from the patient. Fall risk: No risks identified. tm5 Assistance ADL's: requires no assistance with activities of daily living. Abuse/DV Screen: The patient / caregiver reports he/she is: not in a situation that causes fear, pain or injury. Nutritional screening: No deficits noted. Advance Directives: There is no active DNR order. home support is adequate. Assessment: 20:54 General: Appears uncomfortable, Behavior is appropriate for age, cooperative. Pain: tm5 Location: diaphragm, xyphoid area and mid-sternal area Pain currently is 10 out of 10 on a pain scale. Quality of pain is described as burning. Neurological: Level of Consciousness is awake, alert, Oriented to person, place, time. Cardiovascular: Rhythm is sinus rhythm No ectopy. Respiratory: Airway is patent Respiratory effort is even, unlabored, Respiratory pattern is regular, symmetrical, Breath sounds are clear bilaterally. GI: Abdomen is non- distended Bowel sounds present X 4 quads. Abd is soft and non tender X 4 quads. Reports epigastric pain, nausea. : No deficits noted. Derm: Skin is pink, warm & dry. 20:59 General:. tm5 22:45 Reassessment: Patient appears in no apparent distress at this time. Patient states tm5 feeling better. Patient states symptoms have improved. 23:11 Reassessment: Patient appears in no apparent distress at this time. Patient states tm5 feeling better. Patient states symptoms have improved. Vital Signs: 20:11 BP 117 / 66; Pulse 69; Resp 18 S; Temp 97.3(O); Pulse Ox 100% on R/A; Weight 86.18 kg gr2 (R); Height 5 ft. 10 in. (177.80 cm) (R); Pain 8/10; 22:45 BP 122 / 58; Pulse 74; Resp 18; Pulse Ox 98% on R/A; Pain 8/10; tm5 23:11 BP 118 / 64; Pulse 79; Resp 18; Temp 98.3(O); Pulse Ox 100% on R/A; Pain 3/10; tm5 20:11 Body Mass Index 27.26 (86.18 kg, 177.80 cm) gr2 Vitals: 20:11 Log In Time: May 02, 2016 at 20:11. gr2 ED Course: 20:11 Patient visited by Velvet Hammer. gr2 20:11 Nita Piña is Private Physician. gr2 20:11 Patient moved to Waiting gr2 20:12 Patient visited by Velvet Hammer. gr2 20:12 Patient moved to Pre RCE gr2 20:15 Triage Initiated nn1 20:47 Patient moved to 15 cz 20:54 Patient visited by Kimberley Simms RN. tm5 20:54 Awaiting ED physician evaluation. tm5 20:54 The patient / caregiver is instructed regarding the plan of care and ED course. Cardiac tm5 monitor on. Pulse ox on. NIBP on. 20:56 [facility] ke 20:56 Patient visited by Pasha Ford FNP. ke 20:56 Patient visited by Pasha Ford FNP. ke 20:59 ED physician to see patient. tm5 21:15 ETOH Sent. mgs 21:15 Liver Profile Sent. mgs 21:15 Lipase Sent. mgs 21:15 CBC with Diff Sent. mgs 21:15 Basic Metabolic Profile Sent. mgs 21:15 Amylase Sent. mgs 21:16 Inserted saline lock: 20 gauge in left antecubital area. mgs 21:30 EKG done. (by ED staff). Reviewed by Pasha THOMAS. cln 21:34 UA Sent. mgs 21:42 Patient visited by Pasha Ford FNP. ke 21:47 Urine Culture Sent. mgs 22:26 [facility] Payment Agreement was scanned into [employer] and attached to record. zo 22:28 Patient visited by Pasha Ford FNP. ke 22:30 Patient name changed from Lario\\S\\\\S\\Keely\\S\\ to Lario\\S\\ \\S\\Keely. EDMS 22:53 Nita Piña is Referral Physician. ke 23:10 Patient visited by Kimberley Simms RN. tm5 23:11 Discontinued lock intact, bleeding controlled, pressure dressing applied, No tm5 redness/swelling at site. No procedures done that require assistance. Administered Medications: 21:10 Drug: Ondansetron 4 mg [ondansetron HCl 2 mg/mL intravenous solution (2 mL)] Route: mgs IVP; Site: left antecubital; 22:45 Follow up: Response: Nausea is resolved; No Adverse Reaction tm5 21:18 Drug: NS 0.9% 1000 ml [sodium chloride 0.9 % intravenous solution] Route: IV; Rate: mgs bolus; Site: left antecubital; 23:14 Follow up: IV Status: Completed infusion; IV Intake: 1000ml tm5 22:02 Drug: cefTRIAXone 1 grams [ceftriaxone 1 gram solution for injection] Route: IVPB; mgs Infused Over: 30 mins; Site: left antecubital; 22:44 Follow up: Response: No Adverse Reaction; IV Status: Completed infusion; IV Intake: [id number] 22:02 Drug: azithromycin 1 grams [azithromycin 250 mg tablet (4 tabs)] Route: PO; mgs 22:40 Follow up: Response: No Adverse Reaction tm5 22:44 Follow up: Response: No Adverse Reaction tm5 22:09 Not Given (Patient Refused): morphine 4 mg IVP every 30 minutes; Document pain mgs score/vitals after each dose (Hold if SBP < 90mmHg) x2 22:44 Drug: GI Cocktail - (Alum-Mag Hydroxide-Simeth Suspension 225 mg-200 mg-25 mg/5 mL 30 tm5 ml, Lidocaine Liquid 2 % 10 ml, Hyoscyamine Liquid 10 ml) Route: PO; 23:11 Follow up: Response: No Adverse Reaction; Pain is decreased tm5 Intake: 22:44 IV: 50.00ml; Total: 50.00ml. tm5 23:14 IV: 1000.00ml; Total: 1050.00ml. tm5 Order Results: Lab Order: Amylase; SPEC'M 05/02/16 21:13 Test: AMYLASE; Value: 173; Range: 25-115; Abnormal: Above high normal; Units: U/L; Status: F Lab Order: Basic Metabolic Profile; SPEC'M 05/02/16 21:13 Test: GLUCOSE, FASTING; Value: 81; Range: 70-105; Units: MG/DL; Status: F Test: BLOOD UREA NITROGEN; Value: 20; Range: 7-18; Abnormal: Above high normal; Units: MG/DL; Status: F Test: CREATININE FOR GFR; Value: 1.03; Range: 0.70-1.30; Units: MG/DL; Status: F Test: GLOMERULAR FILTRATION RATE; Value: > 60.0; Range: >60; Status: F Test: SODIUM LEVEL; Value: 140; Range: 136-145; Units: MEQ/L; Status: F Test: POTASSIUM SERUM; Value: 4.4; Range: 3.5-5.1; Units: MEQ/L; Status: F Test: CHLORIDE LEVEL; Value: 103; Range: 98-107; Units: MEQ/L; Status: F Test: CARBON DIOXIDE LEVEL; Value: 30; Range: 21-32; Units: MEQ/L; Status: F Test: ANION GAP; Value: 7; Range: 8-16; Abnormal: Below low normal; Units: MEQ/L; Status: F Test: CALCIUM LEVEL; Value: 9.1; Range: 8.5-10.1; Units: MG/DL; Status: F Test Note: ; Units are mL/min/1.73 m2 Chronic Kidney Disease Staging per NKF: Stage I & II GFR >=60 Normal to Mildly Decreased Stage III GFR 30-59 Moderately Decreased Stage IV GFR 15-29 Severely Decreased Stage V GFR <15 Very Little GFR Left ESRD GFR <15 on DUST SAMPLER Lab Order: CBC with Diff; SPEC05/02/16 21:13 Test: WHITE BLOOD COUNT; Value: 5.1; Range: 4.0-10.0; Units: K/mm3; Status: F Test: RED BLOOD COUNT; Value: 5.79; Range: 4.30-6.10; Units: M/mm3; Status: F Test: HEMOGLOBIN; Value: 18.0; Range: 14.0-18.0; Units: g/dl; Status: F Test: HEMATOCRIT; Value: 53.8; Range: 42.0-52.0; Abnormal: Above high normal; Units: %; Status: F Test: MEAN CORPUSCULAR VOLUME; Value: 92.8; Range: 80.0-96.0; Units: fl; Status: F Test: MEAN CORPUSCULAR HEMOGLOBIN; Value: 31.1; Range: 27.0-33.0; Units: pg; Status: F Test: MEAN CORPUSCULAR HGB CONC; Value: 33.5; Range: 32.0-36.5; Units: g/dl; Status: F Test: RED CELL DISTRIBUTION WIDTH; Value: 12.7; Range: 11.5-14.5; Units: %; Status: F Test: PLATELET COUNT, AUTOMATED; Value: 130; Range: 150-450; Abnormal: Below low normal; Units: k/mm3; Status: F Test: NEUTROPHILS %; Value: 43.1; Range: 36.0-66.0; Units: %; Status: F Test: LYMPH %; Value: 46.7; Range: 24.0-44.0; Abnormal: Above high normal; Units: %; Status: F Test: MONO %; Value: 4.6; Range: 0.0-5.0; Units: %; Status: F Test: EOS %; Value: 2.4; Range: 0.0-3.0; Units: %; Status: F Test: BASO %; Value: 0.5; Range: 0.0-1.0; Units: %; Status: F Test: LARGE UNSTAINED CELL %; Value: 2.7; Range: 0.0-4.0; Units: %; Status: F Test: NEUTROPHILS #; Value: 2.2; Range: 1.8-7.7; Units: K/mm3; Status: F Test: LYMPH #; Value: 2.4; Range: 1.5-4.5; Units: K/mm3; Status: F Test: MONO #; Value: 0.2; Range: 0.0-0.8; Units: K/mm3; Status: F Test: EOS #; Value: 0.1; Range: 0.0-0.50; Units: K/mm3; Status: F Test: BASO #; Value: 0.0; Range: 0.0-0.2; Units: K/mm3; Status: F Test: LARGE UNSTAINED CELL #; Value: 0.1; Range: 0.0-0.4; Units: K/mm3; Status: F Lab Order: Lipase; [facility] 05/02/16 21:13 Test: LIPASE; Value: 118; Range: 73-393; Units: U/L; Status: F Lab Order: Liver Profile; [facility] 05/02/16 21:13 Test: AST/SGOT; Value: 15; Range: 15-37; Units: U/L; Status: F Test: ALT/SGPT; Value: 37; Range: 12-78; Units: U/L; Status: F Test: ALKALINE PHOSPHATASE; Value: 64; Range: 45-117; Units: U/L; Status: F Test: BILIRUBIN,TOTAL; Value: 0.4; Range: 0.2-1.0; Units: MG/DL; Status: F Test: BILIRUBIN,DIRECT; Value: 0.1; Range: 0.0-0.2; Units: MG/DL; Status: F Test: TOTAL PROTEIN; Value: 7.1; Range: 6.4-8.2; Units: GM/DL; Status: F Test: ALBUMIN; Value: 3.8; Range: 3.2-5.2; Units: GM/DL; Status: F Test: ALBUMIN/GLOBULIN RATIO; Value: 1.15; Range: 1.00-1.93; Status: F Lab Order: ETOH; [facility] 05/02/16 21:13 Test: ETHYL ALCOHOL (ETHANOL); Value: < 0.003; Range: 0.000-0.010; Units: %; Status: F Lab Order: UA; [facility] 05/02/16 21:32 Test: APPEARANCE, URINE; Value: CLEAR; Range: CLEAR; Status: F Test: COLOR, URINE; Value: YELLOW; Range: YELLOW; Status: F Test: PH,URINE; Value: 5.0; Range: 5.0-9.0; Units: UNITS; Status: F Test: SPECIFIC GRAVITY URINE AUTO; Value: 1.023; Range: 1.002-1.035; Status: F Test: PROTEIN, URINE AUTO; Value: NEGATIVE; Range: NEGATIVE; Units: mg/dL; Status: F Test: GLUCOSE, URINE (UA) AUTO; Value: NEGATIVE; Range: NEGATIVE; Units: mg/dL; Status: F Test: KETONE, URINE AUTO; Value: NEGATIVE; Range: NEGATIVE; Units: mg/dL; Status: F Test: UROBILINOGEN, URINE AUTO; Value: 0.2; Range: 0.0-2.0; Units: mg/dL; Status: F Test: BILIRUBIN, URINE AUTO; Value: NEGATIVE; Range: NEGATIVE; Status: F Test: NITRITE, URINE AUTO; Value: NEGATIVE; Range: NEGATIVE; Status: F Test: LEUKOCYTE ESTERASE, URINE AUTO; Value: NEGATIVE; Range: NEGATIVE; Status: F Test: BLOOD, URINE BLOOD; Value: NEGATIVE; Range: NEGATIVE; Status: F Test: WBC, URINE AUTO; Value: 0; Range: 0-3; Units: /HPF; Status: F Test: RBC, URINE AUTO; Value: 3; Range: 0-3; Units: /HPF; Status: F Test: BACTERIA, URINE AUTO; Value: NEGATIVE; Range: NEGATIVE; Status: F Test: SQUAMOUS EPITHELIAL CELL UR AU; Value: 0; Range: 0-6; Units: /HPF; Status: F Test: MUCUS, URINE; Value: SMALL; Range: NEGATIVE; Status: F Test: HYALINE CAST, URINE AUTO; Value: 0; Range: 0-1; Units: /LPF; Status: F Outcome: 22:54 Discharge ordered by Provider. ke 23:11 Discharge Assessment: Patient awake, alert and oriented x 3. No cognitive and/or tm5 functional deficits noted. Patient verbalized understanding of disposition instructions. patient administered narcotics - no. The following High Risk Discharge criteria are identified: None. Discharged to home ambulatory. Condition: good Condition: stable Condition: improved. Discharge instructions given to patient, Instructed on discharge instructions, follow up and referral plans. medication usage, Demonstrated understanding of instructions, medications, Pt was receptive of discharge instructions/ teaching. Prescriptions given X 2. No special radiology studies were completed. Property :Personal belongings accompany Pt. 23:13 Patient left the ED. tm5 Signatures: Dispatcher [employer] EDMS Roberto Lyons RN RN cz Elsner, Karl, DISTRIBUTION COLLECTION OPERATOR DISTRIBUTION COLLECTION OPERATOR Ro Crum Gainslee gr2 Chun Blanchard RN RN mgs Nunez, Nikkole, RN RN nn1 Yadira Buck, CNA PCT CNA PCT cln Kimberley Simms,RN RN tm5 ARIELD
--- NOTE | 2016-05-03 02:24 | REP ---
Clinical: None abdominal pain. Technique: Upright view of the chest with supine and upright views of the abdomen and pelvis. Findings: Frontal upright view of the chest demonstrates no acute cardiopulmonary process or free air below the diaphragm to suspect pneumoperitoneum. Supine and upright views of the abdomen and pelvis demonstrate nonspecific bowel gas pattern without obstruction or perforation. Moderate fecal stasis suggested. No organomegaly. No abnormal calcifications. Skeletal structures normal for age. Impression: Nonspecific bowel gas pattern. Moderate fecal stasis. Signed by Humberto Augustin MD 05/03/2016 02:15 A
--- NOTE | 2016-05-04 20:07 | ECGEPIP ---
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
--- NOTE | 2016-05-05 00:14 | EDDOCDS ---
Nurse's Notes [facility] Name: Cait Riggs Age: 45 yrs Sex: Male : 1970 Arrival Date: 05/02/2016 Time: 20:09 Bed 15 Private MD: Nita Piña C Diagnosis: Abdominal and pelvic pain;Dysuria Presentation: 05/02 20:14 Presenting complaint: Patient states: he has been having substernal chest pain and nn1 severe acid reflux. States pains began this morning. States ranitidine, omeprazole, TUMS, maalox is not working. Adult Sepsis Screening: The patient does not have new or worsening altered mentation. Patient's respiratory rate is less than 22. Systolic blood pressure is greater than 100. Patient has a qSOFA score of 0- Negative Sepsis Screen. Suicide/Homicide risk assessment- the patient denies having any suicidal and/or homicidal ideations and does not present with any other emotional, behavioral or mental health complaints. Status: Patient is not a medical services assistant or dependent. Transition of care: patient was not received from another setting of care. 20:14 Acuity: JIMMY Level 3 nn1 20:14 Method Of Arrival: Walkin/Carried/Asstd nn1 Triage Assessment: 20:17 General: Appears uncomfortable, Behavior is appropriate for age, cooperative. Pain: nn1 Location: xyphoid area, mid-sternal area and epigastric area Pain currently is 10 out of 10 on a pain scale. Quality of pain is described as burning. HIV screening NA for this visit Offered previously. The patient is triaged at the bedside. See Assessment in Nurses Notes section of ED record. Neurological: Level of Consciousness is awake, alert, obeys commands. GI: Abdomen is non- distended Reports epigastric pain, nausea. GI: Reports vomiting. Derm: Skin is pink, warm & dry. Historical: - Allergies: Amoxicillin (Hives); Cefuroxime (Vomit); Clindamycin (Hives); Doxycycline (Hives); IV Dye; PENICILLINS ("it freaks me out"); Protonix (Vomit); Toradol (Vomit); - Home Meds: 1. Maalox Oral 2. omeprazole 20 mg Oral TbEC 20 mg three times a day 3. Pepto-Bismol Oral as needed 4. ranitidine HCl 150 mg Oral tab 3 times per day - PMHx: Hiatal Hernia; Hypertension; Interstitial Cystitis; GERD; cardiomegaly; - PSHx: Hernia repair; - Social history: Smoking status: Patient states was never smoker of tobacco. No barriers to communication noted, The patient speaks fluent Malay, Speaks appropriately for age. - Family history: Not pertinent. - : The pt / caregiver states he / she is not on anticoagulants. Home medication list is obtained from the patient. - Exposure Risk Screening:: None identified. Screenin:54 Screening information is obtained from the patient. Fall risk: No risks identified. tm5 Assistance ADL's: requires no assistance with activities of daily living. Abuse/DV Screen: The patient / caregiver reports he/she is: not in a situation that causes fear, pain or injury. Nutritional screening: No deficits noted. Advance Directives: There is no active DNR order. home support is adequate. Assessment: 20:54 General: Appears uncomfortable, Behavior is appropriate for age, cooperative. Pain: tm5 Location: diaphragm, xyphoid area and mid-sternal area Pain currently is 10 out of 10 on a pain scale. Quality of pain is described as burning. Neurological: Level of Consciousness is awake, alert, Oriented to person, place, time. Cardiovascular: Rhythm is sinus rhythm No ectopy. Respiratory: Airway is patent Respiratory effort is even, unlabored, Respiratory pattern is regular, symmetrical, Breath sounds are clear bilaterally. GI: Abdomen is non- distended Bowel sounds present X 4 quads. Abd is soft and non tender X 4 quads. Reports epigastric pain, nausea. : No deficits noted. Derm: Skin is pink, warm & dry. 20:59 General:. tm5 22:45 Reassessment: Patient appears in no apparent distress at this time. Patient states tm5 feeling better. Patient states symptoms have improved. 23:11 Reassessment: Patient appears in no apparent distress at this time. Patient states tm5 feeling better. Patient states symptoms have improved. Vital Signs: 20:11 BP 117 / 66; Pulse 69; Resp 18 S; Temp 97.3(O); Pulse Ox 100% on R/A; Weight 86.18 kg gr2 (R); Height 5 ft. 10 in. (177.80 cm) (R); Pain 8/10; 22:45 BP 122 / 58; Pulse 74; Resp 18; Pulse Ox 98% on R/A; Pain 8/10; tm5 23:11 BP 118 / 64; Pulse 79; Resp 18; Temp 98.3(O); Pulse Ox 100% on R/A; Pain 3/10; tm5 20:11 Body Mass Index 27.26 (86.18 kg, 177.80 cm) gr2 Vitals: 20:11 Log In Time: May 02, 2016 at 20:11. gr2 ED Course: 20:11 Patient visited by Vlevet Hammer. gr2 20:11 Nita Piña is Private Physician. gr2 20:11 Patient moved to Waiting gr2 20:12 Patient visited by Velvet Hammer. gr2 20:12 Patient moved to Pre RCE gr2 20:15 Triage Initiated nn1 20:47 Patient moved to 15 cz 20:54 Patient visited by Kimberley Simms RN. tm5 20:54 Awaiting ED physician evaluation. tm5 20:54 The patient / caregiver is instructed regarding the plan of care and ED course. Cardiac tm5 monitor on. Pulse ox on. NIBP on. 20:56 [facility] Ford FNP [facility]. ke 20:56 Patient visited by Pasha Ford FNP. ke 20:56 Patient visited by Pasha Ford FNP. ke 20:59 ED physician to see patient. tm5 21:15 ETOH Sent. mgs 21:15 Liver Profile Sent. mgs 21:15 Lipase Sent. mgs 21:15 CBC with Diff Sent. mgs 21:15 Basic Metabolic Profile Sent. mgs 21:15 Amylase Sent. mgs 21:16 Inserted saline lock: 20 gauge in left antecubital area. mgs 21:30 EKG done. (by ED staff). Reviewed by Pasha THOMAS. cln 21:34 UA Sent. mgs 21:42 Patient visited by Pasha Ford FNP. ke 21:47 Urine Culture Sent. mgs 22:26 [facility] Payment Agreement was scanned into [employer] and attached to record. zo 22:28 Patient visited by Pasha Ford FNP. ke 22:30 Patient name changed from Lario\\S\\\\S\\Keely\\S\\ to Lario\\S\\ \\S\\Keely. EDMS 22:53 Nita Piña is Referral Physician. ke 23:10 Patient visited by Kimberley Simms RN. tm5 23:11 Discontinued lock intact, bleeding controlled, pressure dressing applied, No tm5 redness/swelling at site. No procedures done that require assistance. 05/03 02:31 Abdomen, Flat\\E\\Upright,PA Chest Returned. EDMS 09:28 T-Sheet-- Draft Copy was scanned into [employer] and attached to record. gb 09:28 ECG/EKG was scanned into [employer] and attached to record. gb 02 20:20 EKG-ADULT Returned. EDMS Administered Medications: 05/02 21:10 Drug: Ondansetron 4 mg [ondansetron HCl 2 mg/mL intravenous solution (2 mL)] Route: mgs IVP; Site: left antecubital; 22:45 Follow up: Response: Nausea is resolved; No Adverse Reaction tm5 21:18 Drug: NS 0.9% 1000 ml [sodium chloride 0.9 % intravenous solution] Route: IV; Rate: mgs bolus; Site: left antecubital; 23:14 Follow up: IV Status: Completed infusion; IV Intake: 1000ml tm5 22:02 Drug: cefTRIAXone 1 grams [ceftriaxone 1 gram solution for injection] Route: IVPB; mgs Infused Over: 30 mins; Site: left antecubital; 22:44 Follow up: Response: No Adverse Reaction; IV Status: Completed infusion; IV Intake: [id number] 22:02 Drug: azithromycin 1 grams [azithromycin 250 mg tablet (4 tabs)] Route: PO; mgs 22:40 Follow up: Response: No Adverse Reaction tm5 22:44 Follow up: Response: No Adverse Reaction tm5 22:09 Not Given (Patient Refused): morphine 4 mg IVP every 30 minutes; Document pain mgs score/vitals after each dose (Hold if SBP < 90mmHg) x2 22:44 Drug: GI Cocktail - (Alum-Mag Hydroxide-Simeth Suspension 225 mg-200 mg-25 mg/5 mL 30 tm5 ml, Lidocaine Liquid 2 % 10 ml, Hyoscyamine Liquid 10 ml) Route: PO; 23:11 Follow up: Response: No Adverse Reaction; Pain is decreased tm5 Intake: 22:44 IV: 50.00ml; Total: 50.00ml. tm5 23:14 IV: 1000.00ml; Total: 1050.00ml. tm5 Order Results: Lab Order: Amylase; [facility] 05/02/16 21:13 Test: AMYLASE; Value: 173; Range: 25-115; Abnormal: Above high normal; Units: U/L; Status: F Lab Order: Basic Metabolic Profile; [facility] 05/02/16 21:13 Test: GLUCOSE, FASTING; Value: 81; Range: 70-105; Units: MG/DL; Status: F Test: BLOOD UREA NITROGEN; Value: 20; Range: 7-18; Abnormal: Above high normal; Units: MG/DL; Status: F Test: CREATININE FOR GFR; Value: 1.03; Range: 0.70-1.30; Units: MG/DL; Status: F Test: GLOMERULAR FILTRATION RATE; Value: > 60.0; Range: >60; Status: F Test: SODIUM LEVEL; Value: 140; Range: 136-145; Units: MEQ/L; Status: F Test: POTASSIUM SERUM; Value: 4.4; Range: 3.5-5.1; Units: MEQ/L; Status: F Test: CHLORIDE LEVEL; Value: 103; Range: 98-107; Units: MEQ/L; Status: F Test: CARBON DIOXIDE LEVEL; Value: 30; Range: 21-32; Units: MEQ/L; Status: F Test: ANION GAP; Value: 7; Range: 8-16; Abnormal: Below low normal; Units: MEQ/L; Status: F Test: CALCIUM LEVEL; Value: 9.1; Range: 8.5-10.1; Units: MG/DL; Status: F Test Note: ; Units are mL/min/1.73 m2 Chronic Kidney Disease Staging per NKF: Stage I & II GFR >=60 Normal to Mildly Decreased Stage III GFR 30-59 Moderately Decreased Stage IV GFR 15-29 Severely Decreased Stage V GFR <15 Very Little GFR Left ESRD GFR <15 on OLIVE PACKER Lab Order: CBC with Diff; [facility] 05/02/16 21:13 Test: WHITE BLOOD COUNT; Value: 5.1; Range: 4.0-10.0; Units: K/mm3; Status: F Test: RED BLOOD COUNT; Value: 5.79; Range: 4.30-6.10; Units: M/mm3; Status: F Test: HEMOGLOBIN; Value: 18.0; Range: 14.0-18.0; Units: g/dl; Status: F Test: HEMATOCRIT; Value: 53.8; Range: 42.0-52.0; Abnormal: Above high normal; Units: %; Status: F Test: MEAN CORPUSCULAR VOLUME; Value: 92.8; Range: 80.0-96.0; Units: fl; Status: F Test: MEAN CORPUSCULAR HEMOGLOBIN; Value: 31.1; Range: 27.0-33.0; Units: pg; Status: F Test: MEAN CORPUSCULAR HGB CONC; Value: 33.5; Range: 32.0-36.5; Units: g/dl; Status: F Test: RED CELL DISTRIBUTION WIDTH; Value: 12.7; Range: 11.5-14.5; Units: %; Status: F Test: PLATELET COUNT, AUTOMATED; Value: 130; Range: 150-450; Abnormal: Below low normal; Units: k/mm3; Status: F Test: NEUTROPHILS %; Value: 43.1; Range: 36.0-66.0; Units: %; Status: F Test: LYMPH %; Value: 46.7; Range: 24.0-44.0; Abnormal: Above high normal; Units: %; Status: F Test: MONO %; Value: 4.6; Range: 0.0-5.0; Units: %; Status: F Test: EOS %; Value: 2.4; Range: 0.0-3.0; Units: %; Status: F Test: BASO %; Value: 0.5; Range: 0.0-1.0; Units: %; Status: F Test: LARGE UNSTAINED CELL %; Value: 2.7; Range: 0.0-4.0; Units: %; Status: F Test: NEUTROPHILS #; Value: 2.2; Range: 1.8-7.7; Units: K/mm3; Status: F Test: LYMPH #; Value: 2.4; Range: 1.5-4.5; Units: K/mm3; Status: F Test: MONO #; Value: 0.2; Range: 0.0-0.8; Units: K/mm3; Status: F Test: EOS #; Value: 0.1; Range: 0.0-0.50; Units: K/mm3; Status: F Test: BASO #; Value: 0.0; Range: 0.0-0.2; Units: K/mm3; Status: F Test: LARGE UNSTAINED CELL #; Value: 0.1; Range: 0.0-0.4; Units: K/mm3; Status: F Lab Order: Lipase; [facility] 05/02/16 21:13 Test: LIPASE; Value: 118; Range: 73-393; Units: U/L; Status: F Lab Order: Liver Profile; [facility] 05/02/16 21:13 Test: AST/SGOT; Value: 15; Range: 15-37; Units: U/L; Status: F Test: ALT/SGPT; Value: 37; Range: 12-78; Units: U/L; Status: F Test: ALKALINE PHOSPHATASE; Value: 64; Range: 45-117; Units: U/L; Status: F Test: BILIRUBIN,TOTAL; Value: 0.4; Range: 0.2-1.0; Units: MG/DL; Status: F Test: BILIRUBIN,DIRECT; Value: 0.1; Range: 0.0-0.2; Units: MG/DL; Status: F Test: TOTAL PROTEIN; Value: 7.1; Range: 6.4-8.2; Units: GM/DL; Status: F Test: ALBUMIN; Value: 3.8; Range: 3.2-5.2; Units: GM/DL; Status: F Test: ALBUMIN/GLOBULIN RATIO; Value: 1.15; Range: 1.00-1.93; Status: F Lab Order: ETOH; [facility] 05/02/16 21:13 Test: ETHYL ALCOHOL (ETHANOL); Value: < 0.003; Range: 0.000-0.010; Units: %; Status: F Lab Order: UA; [facility] 05/02/16 21:32 Test: APPEARANCE, URINE; Value: CLEAR; Range: CLEAR; Status: F Test: COLOR, URINE; Value: YELLOW; Range: YELLOW; Status: F Test: PH,URINE; Value: 5.0; Range: 5.0-9.0; Units: UNITS; Status: F Test: SPECIFIC GRAVITY URINE AUTO; Value: 1.023; Range: 1.002-1.035; Status: F Test: PROTEIN, URINE AUTO; Value: NEGATIVE; Range: NEGATIVE; Units: mg/dL; Status: F Test: GLUCOSE, URINE (UA) AUTO; Value: NEGATIVE; Range: NEGATIVE; Units: mg/dL; Status: F Test: KETONE, URINE AUTO; Value: NEGATIVE; Range: NEGATIVE; Units: mg/dL; Status: F Test: UROBILINOGEN, URINE AUTO; Value: 0.2; Range: 0.0-2.0; Units: mg/dL; Status: F Test: BILIRUBIN, URINE AUTO; Value: NEGATIVE; Range: NEGATIVE; Status: F Test: NITRITE, URINE AUTO; Value: NEGATIVE; Range: NEGATIVE; Status: F Test: LEUKOCYTE ESTERASE, URINE AUTO; Value: NEGATIVE; Range: NEGATIVE; Status: F Test: BLOOD, URINE BLOOD; Value: NEGATIVE; Range: NEGATIVE; Status: F Test: WBC, URINE AUTO; Value: 0; Range: 0-3; Units: /HPF; Status: F Test: RBC, URINE AUTO; Value: 3; Range: 0-3; Units: /HPF; Status: F Test: BACTERIA, URINE AUTO; Value: NEGATIVE; Range: NEGATIVE; Status: F Test: SQUAMOUS EPITHELIAL CELL UR AU; Value: 0; Range: 0-6; Units: /HPF; Status: F Test: MUCUS, URINE; Value: SMALL; Range: NEGATIVE; Status: F Test: HYALINE CAST, URINE AUTO; Value: 0; Range: 0-1; Units: /LPF; Status: F Lab Order: Chlamydia & GC Amplification; [facility] 05/02/16 21:32 Test: CHLAMYDIA DNA AMPLIFICATION; Value: NEGATIVE; Range: NEGATIVE; Status: F Test: GC DNA AMPLIFICATION; Value: NEGATIVE; Range: NEGATIVE; Status: F Lab Order: Urine Culture; [facility] 05/02/16 21:32 Test: URINE CULTURE; Value: <EXTERNAL COMMENT eCWMed> FULL REPORT IN LAB NOTES (eCW and Medent).; Status: F Test: URINE CULTURE; Value: URINE CULTURE RESULT NO GROWTH; Status: F Radiology Order: EKG-ADULT Test: EKG-ADULT REASON FOR EXAMINATION: Chest Pain; Stationary ECG Study; [facility] - ED; ; Test Date: 2016-05-02; Pat Name: CAIT RIGGS Department:; Room: -; 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; : 1970 Requested By: Raquel Urban; Order Number: [id number] Reading MD: Jaymie Mehta; Measurements; Intervals [place]; Rate: 55 P: 60; CT: 147 QRS: 1; QRSD: 92 T: 48; QT: 376; QTc: 361; Interpretive Statements; SINUS BRADYCARDIA; ST ELEVATION, PROBABLY EARLY REPOLARIZATION, REQUIRES CLINICAL CORRELATION TO; ; EXCLUDE ISCHEMIA COMPARED 03/08/16; ; Electronically Signed On 05-04-2016 20:07:11 EST by Jaymie Mehta; Radiology Order: Abdomen, Flat\\E\\Upright,PA Chest Test: Abdomen, Flat\\E\\Upright,PA Chest REASON FOR EXAMINATION: Abdomen Pain; Clinical: None abdominal pain.; ; Technique: Upright view of the chest with supine and upright views of the; abdomen and pelvis.; ; Findings: Frontal upright view of the chest demonstrates no acute; cardiopulmonary process or free air below the diaphragm to suspect; pneumoperitoneum. Supine and upright views of the abdomen and pelvis demonstrate; nonspecific bowel gas pattern without obstruction or perforation. Moderate fecal; stasis suggested. No organomegaly. No abnormal calcifications. Skeletal; structures normal for age.; ; Impression:; Nonspecific bowel gas pattern.; Moderate fecal stasis.; ; ; Signed by; Humberto Augustin MD 05/03/2016 02:15 A; Outcome: 22:54 Discharge ordered by Provider. ke 23:11 Discharge Assessment: Patient awake, alert and oriented x 3. No cognitive and/or tm5 functional deficits noted. Patient verbalized understanding of disposition instructions. patient administered narcotics - no. The following High Risk Discharge criteria are identified: None. Discharged to home ambulatory. Condition: good Condition: stable Condition: improved. Discharge instructions given to patient, Instructed on discharge instructions, follow up and referral plans. medication usage, Demonstrated understanding of instructions, medications, Pt was receptive of discharge instructions/ teaching. Prescriptions given X 2. No special radiology studies were completed. Property :Personal belongings accompany Pt. 23:13 Patient left the ED. tm5 Signatures: Dispatcher [employer] EDMS Zecher, Roberto, RN RN cz Janak, Josette, Reg Reg gb Pasha Ford, SUPERVISOR WATER SOFTENER SERVICE SUPERVISOR WATER SOFTENER SERVICE Ro Crum Gainslee gr2 Chun Blanchard,RN RN mgs Brian,Gutierrez,RN RN nn1 Cielo, Crystal, KENO TERMINAL OPERATOR KENO TERMINAL OPERATOR cln Kimberley Simms,RN RN tm5 Chart Complete MTDD
--- NOTE | 2016-05-05 00:14 | EDDOCDS ---
Physician Documentation [facility] Name: Cait Riggs Age: 45 yrs Sex: Male : 1970 Arrival Date: 05/02/2016 Time: 20:09 Bed 15 Private MD: Nita Piña C Disposition: 05/02/16 22:54 Discharged to Home/Self Care. Impression: Abdominal and pelvic pain, Dysuria. - Condition is Stable. - Discharge Instructions: Abdominal Pain, Adult. - Prescriptions for Ultram 50 mg Oral Tablet - take 1 tablet by ORAL route every 6 hours As needed MDD: 4 tabs; 20 tablet. Zofran 4 mg Oral Tablet - take 1 tablet by ORAL route 4 times per day As needed; 10 tablet. - Medication Reconciliation, Local Pharmacy Hours form. - Follow up: Nita iPña; When: As needed; Reason: Recheck today's complaints, Continuance of care. - Problem is an ongoing problem. - Symptoms are unchanged. Historical: - Allergies: Amoxicillin (Hives); Cefuroxime (Vomit); Clindamycin (Hives); Doxycycline (Hives); IV Dye; PENICILLINS ("it freaks me out"); Protonix (Vomit); Toradol (Vomit); - Home Meds: 1. Maalox Oral 2. omeprazole 20 mg Oral TbEC 20 mg three times a day 3. Pepto-Bismol Oral as needed 4. ranitidine HCl 150 mg Oral tab 3 times per day - PMHx: Hiatal Hernia; Hypertension; Interstitial Cystitis; GERD; cardiomegaly; - PSHx: Hernia repair; - Social history: Smoking status: Patient states was never smoker of tobacco. No barriers to communication noted, The patient speaks fluent Taiwanese, Speaks appropriately for age. - Family history: Not pertinent. - : The pt / caregiver states he / she is not on anticoagulants. Home medication list is obtained from the patient. - Exposure Risk Screening:: None identified. Vital Signs: 05/02 20:11 BP 117 / 66; Pulse 69; Resp 18 S; Temp 97.3(O); Pulse Ox 100% on R/A; Weight 86.18 kg / gr2 189.99 lbs (R); Height 5 ft. 10 in. (177.80 cm) (R); Pain 8/10; 22:45 BP 122 / 58; Pulse 74; Resp 18; Pulse Ox 98% on R/A; Pain 8/10; tm5 23:11 BP 118 / 64; Pulse 79; Resp 18; Temp 98.3(O); Pulse Ox 100% on R/A; Pain 3/10; tm5 20:11 Body Mass Index 27.26 (86.18 kg, 177.80 cm) gr2 MDM: 20:51 ECG WITH READING ER PHYS+CARDIAG ordered. EDMS 21:02 NS 0.9% 1000 ml IV at bolus once ordered. ke 21:02 Ondansetron 4 mg IVP once ordered. ke 21:02 IV Saline Lock ordered. ke 21:02 Undress patient appropriately for examination ordered. ke 21:03 morphine 4 mg IVP every 30 minutes; Document pain score/vitals after each dose (Hold if ke SBP < 90mmHg) x2 ordered. 21:03 Amylase Ordered. EDMS 21:03 Basic Metabolic Profile Ordered. EDMS 21:03 CBC with Diff Ordered. EDMS 21:03 Lipase Ordered. EDMS 21:03 Liver Profile Ordered. EDMS 21:03 ETOH Ordered. EDMS 21:04 UA Ordered. EDMS 21:04 Abdomen, Flat\\E\\Upright,PA Chest Ordered. EDMS 21:04 NOTHING BY MOUTH+DIET ordered. EDMS 21:42 cefTRIAXone 1 grams IVPB once over 30 mins; dilute in 50mL of NS or D5W ordered. ke 21:42 azithromycin 1 grams PO once ordered. ke 21:43 Chlamydia & GC Amplification Ordered. EDMS 21:43 Urine Culture Ordered. EDMS 22:20 Financial registration complete. zo 22:26 [facility] Payment Agreement was scanned into [employer] and attached to record. zo 22:28 GI Cocktail - (Alum-Mag Hydroxide-Simeth 30 ml, Lidocaine 10 ml, Hyoscyamine 10 ml) PO ke once; Pre-mixed 50mL unit dose ordered. 05/03 09:28 T-Sheet-- Draft Copy was scanned into [employer] and attached to record. gb 09:28 ECG/EKG was scanned into [employer] and attached to record. gb Administered Medications: 05/02 21:10 Drug: Ondansetron 4 mg [ondansetron HCl 2 mg/mL intravenous solution (2 mL)] Route: mgs IVP; Site: left antecubital; 22:45 Follow up: Response: Nausea is resolved; No Adverse Reaction tm5 21:18 Drug: NS 0.9% 1000 ml [sodium chloride 0.9 % intravenous solution] Route: IV; Rate: mgs bolus; Site: left antecubital; 23:14 Follow up: IV Status: Completed infusion; IV Intake: 1000ml tm5 22:02 Drug: cefTRIAXone 1 grams [ceftriaxone 1 gram solution for injection] Route: IVPB; mgs Infused Over: 30 mins; Site: left antecubital; 22:44 Follow up: Response: No Adverse Reaction; IV Status: Completed infusion; IV Intake: [id number] 22:02 Drug: azithromycin 1 grams [azithromycin 250 mg tablet (4 tabs)] Route: PO; mgs 22:40 Follow up: Response: No Adverse Reaction tm5 22:44 Follow up: Response: No Adverse Reaction tm5 22:09 Not Given (Patient Refused): morphine 4 mg IVP every 30 minutes; Document pain mgs score/vitals after each dose (Hold if SBP < 90mmHg) x2 22:44 Drug: GI Cocktail - (Alum-Mag Hydroxide-Simeth Suspension 225 mg-200 mg-25 mg/5 mL 30 tm5 ml, Lidocaine Liquid 2 % 10 ml, Hyoscyamine Liquid 10 ml) Route: PO; 23:11 Follow up: Response: No Adverse Reaction; Pain is decreased tm5 Signatures: Dispatcher [employer] EDMS Josette Briceno, Reg Reg gb Pasha Ford, NUCLEAR PLANT TECHNICAL ADVISOR NUCLEAR PLANT TECHNICAL ADVISOR Ro Crum NikkoleRN RN nn1 Kimberley Simms RN RN tm5 Chun Blanchard RN mgs The chart was reviewed and I authenticate all verbal orders and agree with the evaluation and treatment provided.Attachments: 22:26 [facility] Payment Agreement zo 05/03 09:28 T-Sheet-- Draft Copy gb 09:28 ECG/EKG Chart Complete MTDD
--- NOTE | 2016-05-05 00:14 | EDDOCDS ---
Physician Documentation [facility] Name: Cait Riggs Age: 45 yrs Sex: Male : 1970 Arrival Date: 05/02/2016 Time: 20:09 Bed 15 Private MD: Nita Piña C Disposition: 05/02/16 22:54 Discharged to Home/Self Care. Impression: Abdominal and pelvic pain, Dysuria. - Condition is Stable. - Discharge Instructions: Abdominal Pain, Adult. - Prescriptions for Ultram 50 mg Oral Tablet - take 1 tablet by ORAL route every 6 hours As needed MDD: 4 tabs; 20 tablet. Zofran 4 mg Oral Tablet - take 1 tablet by ORAL route 4 times per day As needed; 10 tablet. - Medication Reconciliation, Local Pharmacy Hours form. - Follow up: Nita Piña; When: As needed; Reason: Recheck today's complaints, Continuance of care. - Problem is an ongoing problem. - Symptoms are unchanged. Historical: - Allergies: Amoxicillin (Hives); Cefuroxime (Vomit); Clindamycin (Hives); Doxycycline (Hives); IV Dye; PENICILLINS ("it freaks me out"); Protonix (Vomit); Toradol (Vomit); - Home Meds: 1. Maalox Oral 2. omeprazole 20 mg Oral TbEC 20 mg three times a day 3. Pepto-Bismol Oral as needed 4. ranitidine HCl 150 mg Oral tab 3 times per day - PMHx: Hiatal Hernia; Hypertension; Interstitial Cystitis; GERD; cardiomegaly; - PSHx: Hernia repair; - Social history: Smoking status: Patient states was never smoker of tobacco. No barriers to communication noted, The patient speaks fluent Panamanian, Speaks appropriately for age. - Family history: Not pertinent. - : The pt / caregiver states he / she is not on anticoagulants. Home medication list is obtained from the patient. - Exposure Risk Screening:: None identified. Vital Signs: 05/02 20:11 BP 117 / 66; Pulse 69; Resp 18 S; Temp 97.3(O); Pulse Ox 100% on R/A; Weight 86.18 kg / gr2 189.99 lbs (R); Height 5 ft. 10 in. (177.80 cm) (R); Pain 8/10; 22:45 BP 122 / 58; Pulse 74; Resp 18; Pulse Ox 98% on R/A; Pain 8/10; tm5 23:11 BP 118 / 64; Pulse 79; Resp 18; Temp 98.3(O); Pulse Ox 100% on R/A; Pain 3/10; tm5 20:11 Body Mass Index 27.26 (86.18 kg, 177.80 cm) gr2 MDM: 20:51 ECG WITH READING ER PHYS+CARDIAG ordered. EDMS 21:02 NS 0.9% 1000 ml IV at bolus once ordered. ke 21:02 Ondansetron 4 mg IVP once ordered. ke 21:02 IV Saline Lock ordered. ke 21:02 Undress patient appropriately for examination ordered. ke 21:03 morphine 4 mg IVP every 30 minutes; Document pain score/vitals after each dose (Hold if ke SBP < 90mmHg) x2 ordered. 21:03 Amylase Ordered. EDMS 21:03 Basic Metabolic Profile Ordered. EDMS 21:03 CBC with Diff Ordered. EDMS 21:03 Lipase Ordered. EDMS 21:03 Liver Profile Ordered. EDMS 21:03 ETOH Ordered. EDMS 21:04 UA Ordered. EDMS 21:04 Abdomen, Flat\\E\\Upright,PA Chest Ordered. EDMS 21:04 NOTHING BY MOUTH+DIET ordered. EDMS 21:42 cefTRIAXone 1 grams IVPB once over 30 mins; dilute in 50mL of NS or D5W ordered. ke 21:42 azithromycin 1 grams PO once ordered. ke 21:43 Chlamydia & GC Amplification Ordered. EDMS 21:43 Urine Culture Ordered. EDMS 22:20 Financial registration complete. zo 22:26 [id number] Payment Agreement was scanned into [employer] and attached to record. zo 22:28 GI Cocktail - (Alum-Mag Hydroxide-Simeth 30 ml, Lidocaine 10 ml, Hyoscyamine 10 ml) PO ke once; Pre-mixed 50mL unit dose ordered. 05/03 09:28 T-Sheet-- Draft Copy was scanned into [employer] and attached to record. gb 09:28 ECG/EKG was scanned into [employer] and attached to record. gb Administered Medications: 05/02 21:10 Drug: Ondansetron 4 mg [ondansetron HCl 2 mg/mL intravenous solution (2 mL)] Route: mgs IVP; Site: left antecubital; 22:45 Follow up: Response: Nausea is resolved; No Adverse Reaction tm5 21:18 Drug: NS 0.9% 1000 ml [sodium chloride 0.9 % intravenous solution] Route: IV; Rate: mgs bolus; Site: left antecubital; 23:14 Follow up: IV Status: Completed infusion; IV Intake: 1000ml tm5 22:02 Drug: cefTRIAXone 1 grams [ceftriaxone 1 gram solution for injection] Route: IVPB; mgs Infused Over: 30 mins; Site: left antecubital; 22:44 Follow up: Response: No Adverse Reaction; IV Status: Completed infusion; IV Intake: 96mhga4 22:02 Drug: azithromycin 1 grams [azithromycin 250 mg tablet (4 tabs)] Route: PO; mgs 22:40 Follow up: Response: No Adverse Reaction tm5 22:44 Follow up: Response: No Adverse Reaction tm5 22:09 Not Given (Patient Refused): morphine 4 mg IVP every 30 minutes; Document pain mgs score/vitals after each dose (Hold if SBP < 90mmHg) x2 22:44 Drug: GI Cocktail - (Alum-Mag Hydroxide-Simeth Suspension 225 mg-200 mg-25 mg/5 mL 30 tm5 ml, Lidocaine Liquid 2 % 10 ml, Hyoscyamine Liquid 10 ml) Route: PO; 23:11 Follow up: Response: No Adverse Reaction; Pain is decreased tm5 Signatures: Dispatcher [employer] EDMS Josette Briceno, Reg Reg gb Pasha Ford, MARKET RESEARCH LEAD MARKET RESEARCH LEAD Ro Crum NikkoleRN RN nn1 Kimberley Simms RN RN tm5 Chun Blanchard RN mgs The chart was reviewed and I authenticate all verbal orders and agree with the evaluation and treatment provided.Attachments: 22:26 [facility] Payment Agreement zo 05/03 09:28 T-Sheet-- Draft Copy gb 09:28 ECG/EKG Chart Complete MTDD
== END 2016-05-02 23:13 | disposition home or self-care (01) ==
LOC: M ED 20:09
DX: R10.9 Unspecified abdominal pain (principal); R30.0 Dysuria; K21.9 Gastro-esophageal reflux disease without esophagitis; I10 Essential (primary) hypertension; I51.7 Cardiomegaly; Z79.899 Other long term (current) drug therapy; Z88.0 Allergy status to penicillin; Z88.1 Allergy status to other antibiotic agents; Z88.5 Allergy status to narcotic agent; Z91.041 Radiographic dye allergy status
CPT/HCPCS: 74022; 80048; 80076; 81001; 82150; 83690; 85025; 87086; 87491; 87591; 93005; 96361; 96365; 96375; 99285; G0480; J0696; J2405

== ENCOUNTER 2016-05-09 01:50 | Emergency (ER) | payer OTHER ==
[2016-05-09] MEDS ORDERED: MORPHINE 2 MG/ML 1ML SYRINGE As Ordered ONE (04:17)
[2016-05-09] MEDS ORDERED: GI COCKTAIL 50ML BTL(HYOSCYAMINE/MAALOX/LIDOCAINE VISCOUS)(1:3:1) As Ordered ONE (04:17)
[2016-05-09 04:33] LABS: MEAN CORPUSCULAR HEMOGLOBIN 30.7 pg (27.0-33.0); MEAN CORPUSCULAR HGB CONC 32.7 g/dl (32.0-36.5); RED CELL DISTRIBUTION WIDTH 13.2 % (11.5-14.5)
[2016-05-09 04:52] LABS: ALBUMIN 3.7 GM/DL (3.2-5.2); ALBUMIN/GLOBULIN RATIO 1.19 (1.00-1.93); ALKALINE PHOSPHATASE 57 U/L (45-117); ALT/SGPT 46 U/L (12-78); AMYLASE 167 U/L (25-115); ANION GAP 5 MEQ/L (8-16); AST/SGOT 22 U/L (15-37); BILIRUBIN,DIRECT 0.2 MG/DL (0.0-0.2); BILIRUBIN,TOTAL 0.7 MG/DL (0.2-1.0); BLOOD UREA NITROGEN 16 MG/DL (7-18); CALCIUM LEVEL 8.9 MG/DL (8.5-10.1); CARBON DIOXIDE LEVEL 33 MEQ/L (21-32); CHLORIDE LEVEL 104 MEQ/L (98-107); GLOMERULAR FILTRATION RATE > 60.0 (>60); GLUCOSE, FASTING 77 MG/DL (70-105); POTASSIUM SERUM 4.8 MEQ/L (3.5-5.1); SODIUM LEVEL 142 MEQ/L (136-145); TOTAL PROTEIN 6.8 GM/DL (6.4-8.2)
--- NOTE | 2016-05-09 05:46 | EDDOCDS ---
Physician Documentation [facility] Name: Cait Riggs Age: 45 yrs Sex: Male : 1970 Arrival Date: 05/09/2016 Time: 01:50 Bed 9 Private MD: Disposition: 05/09/16 05:02 Discharged to Home/Self Care. Impression: Gastro-esophageal reflux disease. - Condition is Stable. - Medication Reconciliation, Local Pharmacy Hours form. - Follow up: Private Physician; When: Call to arrange an appointment; Reason: Recheck today's complaints. - Problem is chronic. - Symptoms have improved. Historical: - Allergies: Amoxicillin (Hives); Cefuroxime (Vomit); Clindamycin (Hives); Doxycycline (Hives); IV Dye; PENICILLINS ("it freaks me out"); Protonix (Vomit); Toradol (Vomit); - Home Meds: 1. Maalox Oral 2. omeprazole 20 mg Oral TbEC 20 mg three times a day 3. Pepto-Bismol Oral as needed 4. ranitidine HCl 150 mg Oral tab 3 times per day - PMHx: abdominal hernia x2; cardiomegaly; GERD; Hiatal Hernia; Hypertension; Interstitial Cystitis; Pancreatitis; - PSHx: Hernia repair; - Social history: Smoking status: Patient uses tobacco products, current every day smoker. No barriers to communication noted, The patient speaks fluent Nigerien, Speaks appropriately for age. - Family history: Not pertinent. - : The pt / caregiver states he / she is not on anticoagulants. Home medication list is obtained from the patient. - Exposure Risk Screening:: None identified. Vital Signs: 05/09 02:08 BP 116 / 67; Pulse 85; Resp 18; Temp 97.2; Pulse Ox 99% ; Weight 86.18 kg / 189.99 lbs; ko2 Height 5 ft. 10 in. (177.80 cm); Pain 8/10; 04:59 BP 115 / 71; Pulse 80; Resp 16; Temp 97; Pulse Ox 100% on R/A; ld5 02:08 Body Mass Index 27.26 (86.18 kg, 177.80 cm) ko2 MDM: 02:20 CBC Ordered. EDMS 02:20 MED Profile Ordered. EDMS 02:20 Liver Profile Ordered. EDMS 02:20 Amylase Ordered. EDMS 02:20 Lipase Ordered. EDMS 02:21 PriLOSEC Delayed Release Capsule 40 mg PO once; swallow whole; do not crush/chew/cut OR cs11 may open and sprinkle contents over spoonful of applesauce; swallow all immediately/do not chew pellets ordered. 04:11 Financial registration complete. pm4 04:16 IV Saline Lock ordered. cs11 04:16 NS 0.9% 500 ml IV at bolus once ordered. cs11 04:16 GI Cocktail - (Alum-Mag Hydroxide-Simeth 30 ml, Lidocaine 10 ml, Hyoscyamine 10 ml) PO cs11 once; Pre-mixed 50mL unit dose ordered. 04:16 morphine 2 mg IVP once ordered. cs11 04:17 [facility] Payment Agreement was scanned into [employer] and attached to record. pm4 04:59 CBC Reviewed. cs11 04:59 MED Profile Reviewed. cs11 04:59 Amylase Reviewed. cs11 04:59 Liver Profile Reviewed. cs11 04:59 Lipase Reviewed. cs11 Administered Medications: 03:12 Not Given (Patient Refused): PriLOSEC Delayed Release Capsule 40 mg PO once; swallow rw1 whole; do not crush/chew/cut OR may open and sprinkle contents over spoonful of applesauce; swallow all immediately/do not chew pellets 04:28 Drug: GI Cocktail - (Alum-Mag Hydroxide-Simeth Suspension 225 mg-200 mg-25 mg/5 mL 30 ld5 ml, Lidocaine Liquid 2 % 10 ml, Hyoscyamine Liquid 10 ml) Route: PO; 05:00 Follow up: Response: Pain is decreased ld5 04:29 Drug: NS 0.9% 500 ml [sodium chloride 0.9 % intravenous solution] Route: IV; Rate: ld5 bolus; Site: left antecubital; 05:45 Follow up: IV Status: Completed infusion; IV Intake: 500ml ld5 05:45 Not Given (Patient Refused): morphine 2 mg IVP once ld5 Signatures: Dispatcher [employer] EDMS Candice MenesesRN RN ld5 Sid Price DO DO cs11 Lilly Diaz RN RN ko2 Yazan Muniz, Reg Reg pm4 Valerio Orozco LPN rw1 The chart was reviewed and I authenticate all verbal orders and agree with the evaluation and treatment provided.Attachments: 04:17 [facility] Payment Agreement pm4 MTDD
--- NOTE | 2016-05-09 05:47 | EDDOCDS ---
Nurse's Notes [facility] Name: Cait Riggs Age: 45 yrs Sex: Male : 1970 Arrival Date: 05/09/2016 Time: 01:50 Bed 9 Private MD: Diagnosis: Gastro-esophageal reflux disease Presentation: 05/09 02:00 Presenting complaint: Patient states: history of pancreatitis that has flared up. ko2 Suicide/Homicide risk assessment- the patient denies having any suicidal and/or homicidal ideations and does not present with any other emotional, behavioral or mental health complaints. Status: retired. Transition of care: patient was not received from another setting of care. 02:00 Acuity: JIMMY Level 3 ko2 02:00 Method Of Arrival: Walkin/Carried/Asstd ko2 Triage Assessment: 02:06 General: Appears in no apparent distress, Behavior is appropriate for age. Pain: ko2 Location: abdomen. HIV screening NA for this visit Offered previously. The patient is triaged at the bedside. See Assessment in Nurses Notes section of ED record. Neurological: Level of Consciousness is awake, alert. Respiratory: Airway is patent Respiratory effort is even, unlabored. GI: Abdomen is non- distended. Derm: No deficits noted. Musculoskeletal: Range of motion intact in all extremities. Historical: - Allergies: Amoxicillin (Hives); Cefuroxime (Vomit); Clindamycin (Hives); Doxycycline (Hives); IV Dye; PENICILLINS ("it freaks me out"); Protonix (Vomit); Toradol (Vomit); - Home Meds: 1. Maalox Oral 2. omeprazole 20 mg Oral TbEC 20 mg three times a day 3. Pepto-Bismol Oral as needed 4. ranitidine HCl 150 mg Oral tab 3 times per day - PMHx: abdominal hernia x2; cardiomegaly; GERD; Hiatal Hernia; Hypertension; Interstitial Cystitis; Pancreatitis; - PSHx: Hernia repair; - Social history: Smoking status: Patient uses tobacco products, current every day smoker. No barriers to communication noted, The patient speaks fluent Bengali, Speaks appropriately for age. - Family history: Not pertinent. - : The pt / caregiver states he / she is not on anticoagulants. Home medication list is obtained from the patient. - Exposure Risk Screening:: None identified. Screenin:30 Screening information is obtained from the patient. Fall risk: No risks identified. ld5 Assistance ADL's: requires no assistance with activities of daily living. Abuse/DV Screen: The patient / caregiver reports he/she is: not in a situation that causes fear, pain or injury. Nutritional screening: No deficits noted. Advance Directives: Currently, there is no health care proxy. home support is adequate. Assessment: 02:46 General: Appears distressed, uncomfortable, Behavior is agitated, uncooperative, rw1 refused to have blood drawn or take po meds, stated " I am really sick I need an IV and meds." Environmental Resource Specialist came and talk to pt, pt still refused said " I will wait in the waiting room until doctor can see me.". Respiratory: Airway is patent Respiratory effort is even, unlabored. Derm: Skin is normal. 04:00 General: Appears in no apparent distress, Behavior is cooperative. Pain: Location: ld5 epigastric area Pain currently is 8 out of 10 on a pain scale. Pain began 1 day ago. Neurological: Level of Consciousness is awake, obeys commands. EENT: Eyes bloodshot. GI: Abdomen is non- distended Bowel sounds present X 4 quads. Abd is soft X 4 quads Reports when pt was asked about nausea and vomiting, he shook his head no and several seconds later reported "just vomiting". 04:29 General: Pt declining morphine at this time. States GI cocktail usually works for him ld5 so wants to start with that first. Provider aware. Call calvo within reach. Will continue to monitor. 04:58 General: Pt laying quietly in bed. Respirations easy and unlabored. Will continue to ld5 monitor. 05:39 General: In to discharge pt. Pt sleeping and name had to be said several times before ld5 he woke up. This RN discussed discharge paperwork. Pt reports pain remains. Pt asked if the 500 ml bag of NS was all of the fluids he was getting. This RN explained that assessment and blood work do not indicate further fluid use. Pt states "well I know my body". When pt asked about prescriptions and was told that none had been given, pt stated he needed something to go home with - "that oxycodone 325s work". Pt requesting to speak with provider. After speaking with provider, pt left ER. Vital Signs: 02:08 BP 116 / 67; Pulse 85; Resp 18; Temp 97.2; Pulse Ox 99% ; Weight 86.18 kg; Height 5 ft. ko2 10 in. (177.80 cm); Pain 8/10; 04:59 BP 115 / 71; Pulse 80; Resp 16; Temp 97; Pulse Ox 100% on R/A; ld5 02:08 Body Mass Index 27.26 (86.18 kg, 177.80 cm) ko2 Vitals: 02:09 Log In Time: May 09, 2016 at 01:50. ko2 ED Course: 01:52 Patient visited by Rahel Rondon. gjb 01:52 Patient moved to Waiting gjb 01:59 Patient moved to Triage 1 ko2 02:01 Triage Initiated ko2 02:10 Patient moved to Waiting ko2 03:35 Patient moved to Mar 03:41 Patient visited by Candice Meneses RN. ld5 03:56 Sid Price DO is Attending Physician. cs11 03:56 Patient visited by Sid Price DO. cs11 04:16 Patient name changed from Lario\\S\\\\S\\Keely\\S\\ to Lario\\S\\ \\S\\Keely. EDMS 04:17 [facility] Payment Agreement was scanned into [employer] and attached to record. pm4 04:30 The patient / caregiver is instructed regarding the plan of care and ED course. Patient ld5 has correct armband on for positive identification. 04:30 Inserted saline lock: 20 gauge in left antecubital area and blood collected. The ld5 patient tolerated the procedure well. Labs drawn. (by ED staff). Sent per order to lab. 04:33 Patient visited by Candice Meneses RN. ld5 04:58 Patient visited by Candice Meneses RN. ld5 05:46 Patient visited by Candice Meneses RN. ld5 Administered Medications: 03:12 Not Given (Patient Refused): PriLOSEC Delayed Release Capsule 40 mg PO once; swallow rw1 whole; do not crush/chew/cut OR may open and sprinkle contents over spoonful of applesauce; swallow all immediately/do not chew pellets 04:28 Drug: GI Cocktail - (Alum-Mag Hydroxide-Simeth Suspension 225 mg-200 mg-25 mg/5 mL 30 ld5 ml, Lidocaine Liquid 2 % 10 ml, Hyoscyamine Liquid 10 ml) Route: PO; 05:00 Follow up: Response: Pain is decreased ld5 04:29 Drug: NS 0.9% 500 ml [sodium chloride 0.9 % intravenous solution] Route: IV; Rate: ld5 bolus; Site: left antecubital; 05:45 Follow up: IV Status: Completed infusion; IV Intake: 500ml ld5 05:45 Not Given (Patient Refused): morphine 2 mg IVP once ld5 Intake: 05:45 IV: 500.00ml; Total: 500.00ml. ld5 Order Results: Lab Order: CBC; SPEC'05/09/16 04:14 Test: WHITE BLOOD COUNT; Value: 5.0; Range: 4.0-10.0; Units: K/mm3; Status: F Test: RED BLOOD COUNT; Value: 5.65; Range: 4.30-6.10; Units: M/mm3; Status: F Test: HEMOGLOBIN; Value: 17.4; Range: 14.0-18.0; Units: g/dl; Status: F Test: HEMATOCRIT; Value: 53.2; Range: 42.0-52.0; Abnormal: Above high normal; Units: %; Status: F Test: MEAN CORPUSCULAR VOLUME; Value: 94.0; Range: 80.0-96.0; Units: fl; Status: F Test: MEAN CORPUSCULAR HEMOGLOBIN; Value: 30.7; Range: 27.0-33.0; Units: pg; Status: F Test: MEAN CORPUSCULAR HGB CONC; Value: 32.7; Range: 32.0-36.5; Units: g/dl; Status: F Test: RED CELL DISTRIBUTION WIDTH; Value: 13.2; Range: 11.5-14.5; Units: %; Status: F Test: PLATELET COUNT, AUTOMATED; Value: 126; Range: 150-450; Abnormal: Below low normal; Units: k/mm3; Status: F Lab Order: MED Profile; SPEC'05/09/16 04:14 Test: GLUCOSE, FASTING; Value: 77; Range: 70-105; Units: MG/DL; Status: F Test: BLOOD UREA NITROGEN; Value: 16; Range: 7-18; Units: MG/DL; Status: F Test: CREATININE FOR GFR; Value: 1.20; Range: 0.70-1.30; Units: MG/DL; Status: F Test: GLOMERULAR FILTRATION RATE; Value: > 60.0; Range: >60; Status: F Test: SODIUM LEVEL; Value: 142; Range: 136-145; Units: MEQ/L; Status: F Test: POTASSIUM SERUM; Value: 4.8; Range: 3.5-5.1; Units: MEQ/L; Status: F Test: CHLORIDE LEVEL; Value: 104; Range: 98-107; Units: MEQ/L; Status: F Test: CARBON DIOXIDE LEVEL; Value: 33; Range: 21-32; Abnormal: Above high normal; Units: MEQ/L; Status: F Test: ANION GAP; Value: 5; Range: 8-16; Abnormal: Below low normal; Units: MEQ/L; Status: F Test: CALCIUM LEVEL; Value: 8.9; Range: 8.5-10.1; Units: MG/DL; Status: F Test Note: ; Units are mL/min/1.73 m2 Chronic Kidney Disease Staging per NKF: Stage I & II GFR >=60 Normal to Mildly Decreased Stage III GFR 30-59 Moderately Decreased Stage IV GFR 15-29 Severely Decreased Stage V GFR <15 Very Little GFR Left ESRD GFR <15 on DELICATESSEN SLICER Lab Order: Liver Profile; TOMMY'Birdie 05/09/16 04:14 Test: AST/SGOT; Value: 22; Range: 15-37; Units: U/L; Status: F Test: ALT/SGPT; Value: 46; Range: 12-78; Units: U/L; Status: F Test: ALKALINE PHOSPHATASE; Value: 57; Range: 45-117; Units: U/L; Status: F Test: BILIRUBIN,TOTAL; Value: 0.7; Range: 0.2-1.0; Units: MG/DL; Status: F Test: BILIRUBIN,DIRECT; Value: 0.2; Range: 0.0-0.2; Units: MG/DL; Status: F Test: TOTAL PROTEIN; Value: 6.8; Range: 6.4-8.2; Units: GM/DL; Status: F Test: ALBUMIN; Value: 3.7; Range: 3.2-5.2; Units: GM/DL; Status: F Test: ALBUMIN/GLOBULIN RATIO; Value: 1.19; Range: 1.00-1.93; Status: F Lab Order: Amylase; SPEC'M 05/09/16 04:14 Test: AMYLASE; Value: 167; Range: 25-115; Abnormal: Above high normal; Units: U/L; Status: F Lab Order: Lipase; SPEC'M 05/09/16 04:14 Test: LIPASE; Value: 176; Range: 73-393; Units: U/L; Status: F Outcome: 05:02 Discharge ordered by Provider. cs11 05:45 Patient left the ED. ld5 Signatures: Dispatcher [employer] EDMS Maia Masterson RN Valerio Strange LPN LPN rw1 Candice Meneses RN RN ld5 Sid Price DO DO cs11 Lilly Diaz RN RN ko2 Rahel Rondon Paul, Reg Reg pm4 MTDD
--- NOTE | 2016-05-11 06:47 | EDDOCDS ---
Physician Documentation [facility] Name: Cait Riggs Age: 45 yrs Sex: Male : 1970 Arrival Date: 05/09/2016 Time: 01:50 Bed 9 Private MD: Disposition: 05/09/16 05:02 Discharged to Home/Self Care. Impression: Gastro-esophageal reflux disease. - Condition is Stable. - Medication Reconciliation, Local Pharmacy Hours form. - Follow up: Private Physician; When: Call to arrange an appointment; Reason: Recheck today's complaints. - Problem is chronic. - Symptoms have improved. Historical: - Allergies: Amoxicillin (Hives); Cefuroxime (Vomit); Clindamycin (Hives); Doxycycline (Hives); IV Dye; PENICILLINS ("it freaks me out"); Protonix (Vomit); Toradol (Vomit); - Home Meds: 1. Maalox Oral 2. omeprazole 20 mg Oral TbEC 20 mg three times a day 3. Pepto-Bismol Oral as needed 4. ranitidine HCl 150 mg Oral tab 3 times per day - PMHx: abdominal hernia x2; cardiomegaly; GERD; Hiatal Hernia; Hypertension; Interstitial Cystitis; Pancreatitis; - PSHx: Hernia repair; - Social history: Smoking status: Patient uses tobacco products, current every day smoker. No barriers to communication noted, The patient speaks fluent Dominican, Speaks appropriately for age. - Family history: Not pertinent. - : The pt / caregiver states he / she is not on anticoagulants. Home medication list is obtained from the patient. - Exposure Risk Screening:: None identified. Vital Signs: 05/09 02:08 BP 116 / 67; Pulse 85; Resp 18; Temp 97.2; Pulse Ox 99% ; Weight 86.18 kg / 189.99 lbs; ko2 Height 5 ft. 10 in. (177.80 cm); Pain 8/10; 04:59 BP 115 / 71; Pulse 80; Resp 16; Temp 97; Pulse Ox 100% on R/A; ld5 02:08 Body Mass Index 27.26 (86.18 kg, 177.80 cm) ko2 MDM: 02:20 CBC Ordered. EDMS 02:20 MED Profile Ordered. EDMS 02:20 Liver Profile Ordered. EDMS 02:20 Amylase Ordered. EDMS 02:20 Lipase Ordered. EDMS 02:21 PriLOSEC Delayed Release Capsule 40 mg PO once; swallow whole; do not crush/chew/cut OR cs11 may open and sprinkle contents over spoonful of applesauce; swallow all immediately/do not chew pellets ordered. 04:11 Financial registration complete. pm4 04:16 IV Saline Lock ordered. cs11 04:16 NS 0.9% 500 ml IV at bolus once ordered. cs11 04:16 GI Cocktail - (Alum-Mag Hydroxide-Simeth 30 ml, Lidocaine 10 ml, Hyoscyamine 10 ml) PO cs11 once; Pre-mixed 50mL unit dose ordered. 04:16 morphine 2 mg IVP once ordered. cs11 04:17 [facility] Payment Agreement was scanned into [employer] and attached to record. pm4 04:59 CBC Reviewed. cs11 04:59 MED Profile Reviewed. cs11 04:59 Amylase Reviewed. cs11 04:59 Liver Profile Reviewed. cs11 04:59 Lipase Reviewed. cs11 08:58 T-Sheet-- Draft Copy was scanned into [employer] and attached to record. klr Administered Medications: 03:12 Not Given (Patient Refused): PriLOSEC Delayed Release Capsule 40 mg PO once; swallow rw1 whole; do not crush/chew/cut OR may open and sprinkle contents over spoonful of applesauce; swallow all immediately/do not chew pellets 04:28 Drug: GI Cocktail - (Alum-Mag Hydroxide-Simeth Suspension 225 mg-200 mg-25 mg/5 mL 30 ld5 ml, Lidocaine Liquid 2 % 10 ml, Hyoscyamine Liquid 10 ml) Route: PO; 05:00 Follow up: Response: Pain is decreased ld5 04:29 Drug: NS 0.9% 500 ml [sodium chloride 0.9 % intravenous solution] Route: IV; Rate: ld5 bolus; Site: left antecubital; 05:45 Follow up: IV Status: Completed infusion; IV Intake: 500ml ld5 05:45 Not Given (Patient Refused): morphine 2 mg IVP once ld5 Signatures: Dispatcher [employer] EDMS Candice Meneses RN RN ld5 Sid Price DO DO cs11 Lilly Diaz RN RN ko2 RedKristi garcia Paul, Reg Reg pm4 MaggieValerio valdivia TRANSPORTATION AGENT rw1 The chart was reviewed and I authenticate all verbal orders and agree with the evaluation and treatment provided.Attachments: 04:17 [facility] Payment Agreement pm4 08:58 T-Sheet-- Draft Copy klr Chart Complete MTDD
--- NOTE | 2016-05-11 06:47 | EDDOCDS ---
Nurse's Notes [facility] Name: Cait Riggs Age: 45 yrs Sex: Male : 1970 Arrival Date: 05/09/2016 Time: 01:50 Bed 9 Private MD: Diagnosis: Gastro-esophageal reflux disease Presentation: 05/09 02:00 Presenting complaint: Patient states: history of pancreatitis that has flared up. ko2 Suicide/Homicide risk assessment- the patient denies having any suicidal and/or homicidal ideations and does not present with any other emotional, behavioral or mental health complaints. Status: retired. Transition of care: patient was not received from another setting of care. 02:00 Acuity: JIMMY Level 3 ko2 02:00 Method Of Arrival: Walkin/Carried/Asstd ko2 Triage Assessment: 02:06 General: Appears in no apparent distress, Behavior is appropriate for age. Pain: ko2 Location: abdomen. HIV screening NA for this visit Offered previously. The patient is triaged at the bedside. See Assessment in Nurses Notes section of ED record. Neurological: Level of Consciousness is awake, alert. Respiratory: Airway is patent Respiratory effort is even, unlabored. GI: Abdomen is non- distended. Derm: No deficits noted. Musculoskeletal: Range of motion intact in all extremities. Historical: - Allergies: Amoxicillin (Hives); Cefuroxime (Vomit); Clindamycin (Hives); Doxycycline (Hives); IV Dye; PENICILLINS ("it freaks me out"); Protonix (Vomit); Toradol (Vomit); - Home Meds: 1. Maalox Oral 2. omeprazole 20 mg Oral TbEC 20 mg three times a day 3. Pepto-Bismol Oral as needed 4. ranitidine HCl 150 mg Oral tab 3 times per day - PMHx: abdominal hernia x2; cardiomegaly; GERD; Hiatal Hernia; Hypertension; Interstitial Cystitis; Pancreatitis; - PSHx: Hernia repair; - Social history: Smoking status: Patient uses tobacco products, current every day smoker. No barriers to communication noted, The patient speaks fluent Yakut, Speaks appropriately for age. - Family history: Not pertinent. - : The pt / caregiver states he / she is not on anticoagulants. Home medication list is obtained from the patient. - Exposure Risk Screening:: None identified. Screenin:30 Screening information is obtained from the patient. Fall risk: No risks identified. ld5 Assistance ADL's: requires no assistance with activities of daily living. Abuse/DV Screen: The patient / caregiver reports he/she is: not in a situation that causes fear, pain or injury. Nutritional screening: No deficits noted. Advance Directives: Currently, there is no health care proxy. home support is adequate. Assessment: 02:46 General: Appears distressed, uncomfortable, Behavior is agitated, uncooperative, rw1 refused to have blood drawn or take po meds, stated " I am really sick I need an IV and meds." Factory Supervisor came and talk to pt, pt still refused said " I will wait in the waiting room until doctor can see me.". Respiratory: Airway is patent Respiratory effort is even, unlabored. Derm: Skin is normal. 04:00 General: Appears in no apparent distress, Behavior is cooperative. Pain: Location: ld5 epigastric area Pain currently is 8 out of 10 on a pain scale. Pain began 1 day ago. Neurological: Level of Consciousness is awake, obeys commands. EENT: Eyes bloodshot. GI: Abdomen is non- distended Bowel sounds present X 4 quads. Abd is soft X 4 quads Reports when pt was asked about nausea and vomiting, he shook his head no and several seconds later reported "just vomiting". 04:29 General: Pt declining morphine at this time. States GI cocktail usually works for him ld5 so wants to start with that first. Provider aware. Call calvo within reach. Will continue to monitor. 04:58 General: Pt laying quietly in bed. Respirations easy and unlabored. Will continue to ld5 monitor. 05:39 General: In to discharge pt. Pt sleeping and name had to be said several times before ld5 he woke up. This RN discussed discharge paperwork. Pt reports pain remains. Pt asked if the 500 ml bag of NS was all of the fluids he was getting. This RN explained that assessment and blood work do not indicate further fluid use. Pt states "well I know my body". When pt asked about prescriptions and was told that none had been given, pt stated he needed something to go home with - "that oxycodone 325s work". Pt requesting to speak with provider. After speaking with provider, pt left ER. Vital Signs: 02:08 BP 116 / 67; Pulse 85; Resp 18; Temp 97.2; Pulse Ox 99% ; Weight 86.18 kg; Height 5 ft. ko2 10 in. (177.80 cm); Pain 8/10; 04:59 BP 115 / 71; Pulse 80; Resp 16; Temp 97; Pulse Ox 100% on R/A; ld5 02:08 Body Mass Index 27.26 (86.18 kg, 177.80 cm) ko2 Vitals: 02:09 Log In Time: May 09, 2016 at 01:50. ko2 ED Course: 01:52 Patient visited by Rahel Rondon. gjb 01:52 Patient moved to Waiting gjb 01:59 Patient moved to Triage 1 ko2 02:01 Triage Initiated ko2 02:10 Patient moved to Waiting ko2 03:35 Patient moved to Mar 03:41 Patient visited by Candice Meneses RN. ld5 03:56 Sid Price DO is Attending Physician. cs11 03:56 Patient visited by Sid Price DO. cs11 04:16 Patient name changed from Lario\\S\\\\S\\Keely\\S\\ to Lario\\S\\ \\S\\Keely. EDMS 04:17 [facility] Payment Agreement was scanned into [employer] and attached to record. pm4 04:30 The patient / caregiver is instructed regarding the plan of care and ED course. Patient ld5 has correct armband on for positive identification. 04:30 Inserted saline lock: 20 gauge in left antecubital area and blood collected. The ld5 patient tolerated the procedure well. Labs drawn. (by ED staff). Sent per order to lab. 04:33 Patient visited by Candice Meneses RN. ld5 04:58 Patient visited by Candice Meneses RN. ld5 05:46 Patient visited by Candice Meneses RN. ld5 08:58 T-Sheet-- Draft Copy was scanned into [employer] and attached to record. klr Administered Medications: 03:12 Not Given (Patient Refused): PriLOSEC Delayed Release Capsule 40 mg PO once; swallow rw1 whole; do not crush/chew/cut OR may open and sprinkle contents over spoonful of applesauce; swallow all immediately/do not chew pellets 04:28 Drug: GI Cocktail - (Alum-Mag Hydroxide-Simeth Suspension 225 mg-200 mg-25 mg/5 mL 30 ld5 ml, Lidocaine Liquid 2 % 10 ml, Hyoscyamine Liquid 10 ml) Route: PO; 05:00 Follow up: Response: Pain is decreased ld5 04:29 Drug: NS 0.9% 500 ml [sodium chloride 0.9 % intravenous solution] Route: IV; Rate: ld5 bolus; Site: left antecubital; 05:45 Follow up: IV Status: Completed infusion; IV Intake: 500ml ld5 05:45 Not Given (Patient Refused): morphine 2 mg IVP once ld5 Intake: 05:45 IV: 500.00ml; Total: 500.00ml. ld5 Order Results: Lab Order: CBC; SPEC'05/09/16 04:14 Test: WHITE BLOOD COUNT; Value: 5.0; Range: 4.0-10.0; Units: K/mm3; Status: F Test: RED BLOOD COUNT; Value: 5.65; Range: 4.30-6.10; Units: M/mm3; Status: F Test: HEMOGLOBIN; Value: 17.4; Range: 14.0-18.0; Units: g/dl; Status: F Test: HEMATOCRIT; Value: 53.2; Range: 42.0-52.0; Abnormal: Above high normal; Units: %; Status: F Test: MEAN CORPUSCULAR VOLUME; Value: 94.0; Range: 80.0-96.0; Units: fl; Status: F Test: MEAN CORPUSCULAR HEMOGLOBIN; Value: 30.7; Range: 27.0-33.0; Units: pg; Status: F Test: MEAN CORPUSCULAR HGB CONC; Value: 32.7; Range: 32.0-36.5; Units: g/dl; Status: F Test: RED CELL DISTRIBUTION WIDTH; Value: 13.2; Range: 11.5-14.5; Units: %; Status: F Test: PLATELET COUNT, AUTOMATED; Value: 126; Range: 150-450; Abnormal: Below low normal; Units: k/mm3; Status: F Lab Order: MED Profile; SPEC05/09/16 04:14 Test: GLUCOSE, FASTING; Value: 77; Range: 70-105; Units: MG/DL; Status: F Test: BLOOD UREA NITROGEN; Value: 16; Range: 7-18; Units: MG/DL; Status: F Test: CREATININE FOR GFR; Value: 1.20; Range: 0.70-1.30; Units: MG/DL; Status: F Test: GLOMERULAR FILTRATION RATE; Value: > 60.0; Range: >60; Status: F Test: SODIUM LEVEL; Value: 142; Range: 136-145; Units: MEQ/L; Status: F Test: POTASSIUM SERUM; Value: 4.8; Range: 3.5-5.1; Units: MEQ/L; Status: F Test: CHLORIDE LEVEL; Value: 104; Range: 98-107; Units: MEQ/L; Status: F Test: CARBON DIOXIDE LEVEL; Value: 33; Range: 21-32; Abnormal: Above high normal; Units: MEQ/L; Status: F Test: ANION GAP; Value: 5; Range: 8-16; Abnormal: Below low normal; Units: MEQ/L; Status: F Test: CALCIUM LEVEL; Value: 8.9; Range: 8.5-10.1; Units: MG/DL; Status: F Test Note: ; Units are mL/min/1.73 m2 Chronic Kidney Disease Staging per NKF: Stage I & II GFR >=60 Normal to Mildly Decreased Stage III GFR 30-59 Moderately Decreased Stage IV GFR 15-29 Severely Decreased Stage V GFR <15 Very Little GFR Left ESRD GFR <15 on REGISTERED NURSE OBSTETRICS Lab Order: Liver Profile; [facility]' 05/09/16 04:14 Test: AST/SGOT; Value: 22; Range: 15-37; Units: U/L; Status: F Test: ALT/SGPT; Value: 46; Range: 12-78; Units: U/L; Status: F Test: ALKALINE PHOSPHATASE; Value: 57; Range: 45-117; Units: U/L; Status: F Test: BILIRUBIN,TOTAL; Value: 0.7; Range: 0.2-1.0; Units: MG/DL; Status: F Test: BILIRUBIN,DIRECT; Value: 0.2; Range: 0.0-0.2; Units: MG/DL; Status: F Test: TOTAL PROTEIN; Value: 6.8; Range: 6.4-8.2; Units: GM/DL; Status: F Test: ALBUMIN; Value: 3.7; Range: 3.2-5.2; Units: GM/DL; Status: F Test: ALBUMIN/GLOBULIN RATIO; Value: 1.19; Range: 1.00-1.93; Status: F Lab Order: Amylase; SPEC'M 05/09/16 04:14 Test: AMYLASE; Value: 167; Range: 25-115; Abnormal: Above high normal; Units: U/L; Status: F Lab Order: Lipase; SPEC'M 05/09/16 04:14 Test: LIPASE; Value: 176; Range: 73-393; Units: U/L; Status: F Outcome: 05:02 Discharge ordered by Provider. cs11 05:45 Patient left the ED. ld5 Signatures: Dispatcher [employer] EDMaia Rodney RN RN jan Workman, Robert, LPN BLOW OFF WORKER rw1 Candice MenesesRN RN ld5 Sid Price DO DO cs11 Lilly Diaz RN RN ko2 Rahel Rondon Kathie klr Montondo, Paul, Reg Reg pm4 Chart Complete SUSAN
--- NOTE | 2016-05-11 06:47 | EDDOCDS ---
Physician Documentation [facility] Name: Cait Riggs Age: 45 yrs Sex: Male : 1970 Arrival Date: 05/09/2016 Time: 01:50 Bed 9 Private MD: Disposition: 05/09/16 05:02 Discharged to Home/Self Care. Impression: Gastro-esophageal reflux disease. - Condition is Stable. - Medication Reconciliation, Local Pharmacy Hours form. - Follow up: Private Physician; When: Call to arrange an appointment; Reason: Recheck today's complaints. - Problem is chronic. - Symptoms have improved. Historical: - Allergies: Amoxicillin (Hives); Cefuroxime (Vomit); Clindamycin (Hives); Doxycycline (Hives); IV Dye; PENICILLINS ("it freaks me out"); Protonix (Vomit); Toradol (Vomit); - Home Meds: 1. Maalox Oral 2. omeprazole 20 mg Oral TbEC 20 mg three times a day 3. Pepto-Bismol Oral as needed 4. ranitidine HCl 150 mg Oral tab 3 times per day - PMHx: abdominal hernia x2; cardiomegaly; GERD; Hiatal Hernia; Hypertension; Interstitial Cystitis; Pancreatitis; - PSHx: Hernia repair; - Social history: Smoking status: Patient uses tobacco products, current every day smoker. No barriers to communication noted, The patient speaks fluent Kazakh, Speaks appropriately for age. - Family history: Not pertinent. - : The pt / caregiver states he / she is not on anticoagulants. Home medication list is obtained from the patient. - Exposure Risk Screening:: None identified. Vital Signs: 05/09 02:08 BP 116 / 67; Pulse 85; Resp 18; Temp 97.2; Pulse Ox 99% ; Weight 86.18 kg / 189.99 lbs; ko2 Height 5 ft. 10 in. (177.80 cm); Pain 8/10; 04:59 BP 115 / 71; Pulse 80; Resp 16; Temp 97; Pulse Ox 100% on R/A; ld5 02:08 Body Mass Index 27.26 (86.18 kg, 177.80 cm) ko2 MDM: 02:20 CBC Ordered. EDMS 02:20 MED Profile Ordered. EDMS 02:20 Liver Profile Ordered. EDMS 02:20 Amylase Ordered. EDMS 02:20 Lipase Ordered. EDMS 02:21 PriLOSEC Delayed Release Capsule 40 mg PO once; swallow whole; do not crush/chew/cut OR cs11 may open and sprinkle contents over spoonful of applesauce; swallow all immediately/do not chew pellets ordered. 04:11 Financial registration complete. pm4 04:16 IV Saline Lock ordered. cs11 04:16 NS 0.9% 500 ml IV at bolus once ordered. cs11 04:16 GI Cocktail - (Alum-Mag Hydroxide-Simeth 30 ml, Lidocaine 10 ml, Hyoscyamine 10 ml) PO cs11 once; Pre-mixed 50mL unit dose ordered. 04:16 morphine 2 mg IVP once ordered. cs11 04:17 [facility] Payment Agreement was scanned into [employer] and attached to record. pm4 04:59 CBC Reviewed. cs11 04:59 MED Profile Reviewed. cs11 04:59 Amylase Reviewed. cs11 04:59 Liver Profile Reviewed. cs11 04:59 Lipase Reviewed. cs11 08:58 T-Sheet-- Draft Copy was scanned into [employer] and attached to record. klr Administered Medications: 03:12 Not Given (Patient Refused): PriLOSEC Delayed Release Capsule 40 mg PO once; swallow rw1 whole; do not crush/chew/cut OR may open and sprinkle contents over spoonful of applesauce; swallow all immediately/do not chew pellets 04:28 Drug: GI Cocktail - (Alum-Mag Hydroxide-Simeth Suspension 225 mg-200 mg-25 mg/5 mL 30 ld5 ml, Lidocaine Liquid 2 % 10 ml, Hyoscyamine Liquid 10 ml) Route: PO; 05:00 Follow up: Response: Pain is decreased ld5 04:29 Drug: NS 0.9% 500 ml [sodium chloride 0.9 % intravenous solution] Route: IV; Rate: ld5 bolus; Site: left antecubital; 05:45 Follow up: IV Status: Completed infusion; IV Intake: 500ml ld5 05:45 Not Given (Patient Refused): morphine 2 mg IVP once ld5 Signatures: Dispatcher [employer] EDMS Candice Meneses RN RN ld5 Sid Price DO DO cs11 Lilly Diaz RN RN ko2 RedKristi garcia Paul, Reg Reg pm4 MaggieValerio valdivia SURGEON/PRESIDENT rw1 The chart was reviewed and I authenticate all verbal orders and agree with the evaluation and treatment provided.Attachments: 04:17 [facility] Payment Agreement pm4 08:58 T-Sheet-- Draft Copy klr Chart Complete MTDD
== END 2016-05-09 05:45 | disposition home or self-care (01) ==
LOC: M ED 01:50
DX: K21.9 Gastro-esophageal reflux disease without esophagitis (principal); I51.7 Cardiomegaly; I10 Essential (primary) hypertension; K44.9 Diaphragmatic hernia without obstruction or gangrene; N30.10 Interstitial cystitis (chronic) without hematuria; Z72.0 Tobacco use; Z79.899 Other long term (current) drug therapy; Z88.0 Allergy status to penicillin; Z88.1 Allergy status to other antibiotic agents; Z88.8 Allergy status to other drugs, medicaments and biological substances; Z88.6 Allergy status to analgesic agent

== ENCOUNTER 2016-05-14 23:11 | Emergency (ER) | payer OTHER ==
[2016-05-15 00:41] LABS: BASO % 0.6 % (0.0-1.0); EOS # 0.2 K/mm3 (0.0-0.50); LARGE UNSTAINED CELL # 0.1 K/mm3 (0.0-0.4); LARGE UNSTAINED CELL % 1.9 % (0.0-4.0); LYMPH # 2.3 K/mm3 (1.5-4.5); LYMPH % 50.1 % (24.0-44.0); MEAN CORPUSCULAR HEMOGLOBIN 31.8 pg (27.0-33.0); MEAN CORPUSCULAR HGB CONC 33.9 g/dl (32.0-36.5); MEAN CORPUSCULAR VOLUME 93.9 fl (80.0-96.0); MONO # 0.2 K/mm3 (0.0-0.8); MONO % 4.9 % (0.0-5.0); NEUTROPHILS # 1.7 K/mm3 (1.8-7.7); NEUTROPHILS % 38.6 % (36.0-66.0); PLATELET COUNT, AUTOMATED 128 k/mm3 (150-450); RED CELL DISTRIBUTION WIDTH 13.2 % (11.5-14.5); WHITE BLOOD COUNT 4.3 K/mm3 (4.0-10.0)
[2016-05-15 01:05] LABS: ALBUMIN 3.1 GM/DL (3.2-5.2); ALBUMIN/GLOBULIN RATIO 1.11 (1.00-1.93); ALKALINE PHOSPHATASE 56 U/L (45-117); ALT/SGPT 32 U/L (12-78); AMYLASE 146 U/L (25-115); ANION GAP 8 MEQ/L (8-16); AST/SGOT 25 U/L (15-37); BILIRUBIN,DIRECT 0.2 MG/DL (0.0-0.2); BILIRUBIN,TOTAL 0.4 MG/DL (0.2-1.0); BLOOD UREA NITROGEN 12 MG/DL (7-18); CALCIUM LEVEL 7.7 MG/DL (8.5-10.1); CARBON DIOXIDE LEVEL 25 MEQ/L (21-32); CHLORIDE LEVEL 109 MEQ/L (98-107); CREATININE FOR GFR 0.92 MG/DL (0.70-1.30); GLOMERULAR FILTRATION RATE > 60.0 (>60); GLUCOSE, FASTING 92 MG/DL (70-105); POTASSIUM SERUM 4.3 MEQ/L (3.5-5.1); SODIUM LEVEL 142 MEQ/L (136-145); TOTAL PROTEIN 5.9 GM/DL (6.4-8.2)
[2016-05-15] MEDS ORDERED: AZITHROMYCIN 250 MG TAB As Ordered ONE (02:09)
[2016-05-15] MEDS ORDERED: GENTAMICIN SULF INJ 80MG/2ML VIAL (J1580) As Ordered ONE (02:19)
--- NOTE | 2016-05-15 03:18 | EDDOCDS ---
Physician Documentation [facility] Name: Cait Riggs Age: 45 yrs Sex: Male : 1970 Arrival Date: 05/14/2016 Time: 23:11 Bed 9 Private MD: Nita Piña C Disposition: 05/15/16 02:21 Discharged to Home/Self Care. Impression: Nonspecific urethritis. - Condition is Stable. - Discharge Instructions: Urethritis, Adult. - Medication Reconciliation, Local Pharmacy Hours form. - Follow up: Nita Piña; When: 4 - 5 days; Reason: Continuance of care. - Problem is an acute exacerbation. - Symptoms have improved. Historical: - Allergies: Amoxicillin (Hives); Cefuroxime (Vomit); Clindamycin (Hives); Doxycycline (Hives); IV Dye; PENICILLINS ("it freaks me out"); Protonix (Vomit); Toradol (Vomit); - Home Meds: 1. Maalox Oral 2. omeprazole 20 mg Oral TbEC 20 mg three times a day 3. Pepto-Bismol Oral as needed 4. ranitidine HCl 150 mg Oral tab 3 times per day - PMHx: abdominal hernia x2; cardiomegaly; GERD; Hiatal Hernia; Hypertension; Interstitial Cystitis; Pancreatitis; - PSHx: Hernia repair; - Social history: Smoking status: Patient states former smoker of tobacco. No barriers to communication noted, The patient speaks fluent Austrian, Speaks appropriately for age. - Family history: Not pertinent. - : The pt / caregiver states he / she is not on anticoagulants. Home medication list is obtained from the patient. - Exposure Risk Screening:: None identified. Vital Signs: 05/14 23:13 BP 136 / 65; Pulse 69; Resp 18; Temp 96.5(O); Pulse Ox 100% on R/A; Weight 83.46 kg / kb5 184 lbs (M); Height 5 ft. 11 in. (180.34 cm) (R); Pain 10; 05/15 00:28 BP 118 / 61 (auto/); kas2 00:28 Pulse 54 MON; kas2 00:43 BP 121 / 67 (auto/); kas2 00:43 Pulse 54 MON; Pulse Ox 98% ; kas2 00:58 BP 130 / 71 (auto/); kas2 00:58 Pulse 68 MON; Pulse Ox 98% ; kas2 01:33 Resp 18; Temp 98.6(O); Pain 0/10; kas2 03:07 BP 118 / 62; Pulse 58; Resp 18; Temp 98.8(O); Pulse Ox 96% on R/A; Pain 0/10; kb5 05/14 23:13 Body Mass Index 25.66 (83.46 kg, 180.34 cm) [facility] MDM: 05/14 23:27 ECG WITH READING ER PHYS+CARDIAG ordered. EDMS 02 00:23 IV Saline Lock ordered. mm11 00:23 Undress patient appropriately for examination ordered. mm11 00:24 Amylase Ordered. EDMS 00:24 Basic Metabolic Profile Ordered. EDMS 00:24 CBC with Diff Ordered. EDMS 00:24 Cardiac Injury Profile Ordered. EDMS 00:24 Lipase Ordered. EDMS 00:24 Liver Profile Ordered. EDMS 00:24 Troponin Ordered. EDMS 00:24 NOTHING BY MOUTH+DIET ordered. EDMS 01:11 Amylase Reviewed. mm11 01:11 Basic Metabolic Profile Reviewed. mm11 01:11 CBC with Diff Reviewed. mm11 01:11 Liver Profile Reviewed. mm11 01:11 Cardiac Injury Profile Reviewed. mm11 01:11 Lipase Reviewed. mm11 01:11 Troponin Reviewed. mm11 01:13 UA Ordered. EDMS 01:13 Urine Culture Ordered. EDMS 01:13 GC & Chlamydia Amplification Ordered. EDMS 01:17 SYPHILIS Ordered. EDMS 01:35 Financial registration complete. [facility] 01:38 Amylase Reviewed. mm11 01:38 Basic Metabolic Profile Reviewed. mm11 01:38 Liver Profile Reviewed. mm11 01:38 Cardiac Injury Profile Reviewed. mm11 01:38 Lipase Reviewed. mm11 01:38 Troponin Reviewed. mm11 01:38 UA Reviewed. mm11 01:57 SYPHILIS Reviewed. mm11 01:59 Gentamicin 240 mg IM once ordered. mm11 01:59 azithromycin 1 grams PO once ordered. mm11 02:17 Gentamicin 240 mg IVPB once over 1 hrs; dilute in 50-200mL of NS or D5W, less volume mm11 for Peds pts ordered. Administered Medications: 02:17 Not Given (Other Intervention Used): Gentamicin 240 mg IM once mm11 02:28 Drug: azithromycin 1 grams [azithromycin 250 mg tablet (4 tabs)] Route: PO; kas2 02:28 Drug: Gentamicin 240 mg [gentamicin 40 mg/mL injection solution] Route: IVPB; Infused kas2 Over: 1 hrs; Site: right antecubital; Signatures: Dispatcher [employer] EDChun Mclean DO DO mm11 Fredrick Luna RN RN jmb Hook, Sandra slh Smith, Kim, RN RN kas2 The chart was reviewed and I authenticate all verbal orders and agree with the evaluation and treatment provided.Corrections: (The following items were deleted from the chart) 01:17 01:13 SYPHILIS+LAB ordered. EDMS EDMS MTDD
--- NOTE | 2016-05-15 03:18 | EDDOCDS ---
Nurse's Notes [facility] Name: Cait Riggs Age: 45 yrs Sex: Male : 1970 Arrival Date: 05/14/2016 Time: 23:11 Bed 9 Private MD: Nita Piña C Diagnosis: Nonspecific urethritis Presentation: 05/14 23:22 Presenting complaint: Patient states: Patient reports chest pain that has been present jmb all day. Patient also reports lower abdomen pain. Aspirin was not taken prior to arrival. Adult Sepsis Screening: The patient does not have new or worsening altered mentation. Patient's respiratory rate is less than 22. Systolic blood pressure is greater than 100. Patient has a qSOFA score of 0- Negative Sepsis Screen. Suicide/Homicide risk assessment- the patient denies having any suicidal and/or homicidal ideations and does not present with any other emotional, behavioral or mental health complaints. Status: Patient is not a greeter guest services or dependent. Transition of care: patient was not received from another setting of care. 23:22 Acuity: JIMMY Level 3 b 23:22 Method Of Arrival: Walkin/Carried/Asstd jmb Triage Assessment: 23:24 General: Appears in no apparent distress, comfortable, Behavior is appropriate for age, jmb cooperative. Pain: Location: chest Pain currently is 10 out of 10 on a pain scale. HIV screening NA for this visit Offered previously. Neurological: Level of Consciousness is awake, alert, obeys commands, Oriented to person, place, time, Speech is normal, Facial symmetry appears normal, Facial symmetry: tongue is midline. Cardiovascular: Chest pain is described as mild, radiates Does not radiate. episodes are continuous began all day. Derm: Skin is normal. Musculoskeletal: Range of motion intact in all extremities. Historical: - Allergies: Amoxicillin (Hives); Cefuroxime (Vomit); Clindamycin (Hives); Doxycycline (Hives); IV Dye; PENICILLINS ("it freaks me out"); Protonix (Vomit); Toradol (Vomit); - Home Meds: 1. Maalox Oral 2. omeprazole 20 mg Oral TbEC 20 mg three times a day 3. Pepto-Bismol Oral as needed 4. ranitidine HCl 150 mg Oral tab 3 times per day - PMHx: abdominal hernia x2; cardiomegaly; GERD; Hiatal Hernia; Hypertension; Interstitial Cystitis; Pancreatitis; - PSHx: Hernia repair; - Social history: Smoking status: Patient states former smoker of tobacco. No barriers to communication noted, The patient speaks fluent Kyrgyz, Speaks appropriately for age. - Family history: Not pertinent. - : The pt / caregiver states he / she is not on anticoagulants. Home medication list is obtained from the patient. - Exposure Risk Screening:: None identified. Screenin:33 Screening information is obtained from the patient. Fall risk: No risks identified. kas2 Assistance ADL's: requires no assistance with activities of daily living. Abuse/DV Screen: The patient / caregiver reports he/she is: not in a situation that causes fear, pain or injury. Nutritional screening: No deficits noted. Advance Directives: Currently, there is no health care proxy. There is no active DNR order. There is no living will. There is no Power of Checkout Operator. home support is adequate. Assessment: 23:32 General: Appears in no apparent distress, uncomfortable, well nourished, well groomed, kas2 Behavior is appropriate for age, cooperative. Pain: Location: chest Pain currently is 8 out of 10 on a pain scale. Neurological: Level of Consciousness is awake, alert, Oriented to person, place, time. Cardiovascular: Capillary refill < 3 seconds Heart tones S1 S2 present Rhythm is sinus rhythm No ectopy. Respiratory: Airway is patent Respiratory effort is even, unlabored, Respiratory pattern is regular, symmetrical, Breath sounds are clear bilaterally. Derm: Skin is intact, Skin is dry, Skin is pink, warm & dry. Skin temperature is warm. 05/15 01:30 General: Appears in no apparent distress, comfortable, Behavior is appropriate for age, kas2 cooperative. Pain: Denies pain. Neurological: Level of Consciousness is awake, alert, Oriented to person, place, time. Cardiovascular: Rhythm is sinus rhythm No ectopy. Derm: Skin is intact, Skin is dry, Skin is pink, warm & dry. Skin temperature is warm. 02:28 General: Appears in no apparent distress, comfortable, Behavior is appropriate for age, kas2 cooperative. Pain: Denies pain. Pain: Denies pain. Neurological: Level of Consciousness is awake, alert, Oriented to person, place, time. Cardiovascular: Rhythm is sinus rhythm No ectopy. Respiratory: Airway is patent Respiratory effort is even, unlabored, Respiratory pattern is regular, symmetrical. Derm: Skin is intact, Skin is dry, Skin is pink, warm & dry. Skin temperature is warm. Vital Signs: 05/14 23:13 BP 136 / 65; Pulse 69; Resp 18; Temp 96.5(O); Pulse Ox 100% on R/A; Weight 83.46 kg kb5 (M); Height 5 ft. 11 in. (180.34 cm) (R); Pain 10/10; 05/15 00:28 BP 118 / 61 (auto/); kas2 00:28 Pulse 54 MON; kas2 00:43 BP 121 / 67 (auto/); kas2 00:43 Pulse 54 MON; Pulse Ox 98% ; kas2 00:58 BP 130 / 71 (auto/); kas2 00:58 Pulse 68 MON; Pulse Ox 98% ; kas2 01:33 Resp 18; Temp 98.6(O); Pain 0/10; kas2 03:07 BP 118 / 62; Pulse 58; Resp 18; Temp 98.8(O); Pulse Ox 96% on R/A; Pain 0/10; kb5 05/14 23:13 Body Mass Index 25.66 (83.46 kg, 180.34 cm) [facility] Vitals: 05/14 23:13 Log In Time: May 14, 2016 at 23:11. kb5 ED Course: 23:12 Patient visited by Seven French PCA. 5 23:12 Patient moved to Waiting [facility] 23:13 Nita Piña is Private Physician. [facility] 23:23 Triage Initiated [facility] 23:25 Danette Holland,RN is Primary Nurse. [facility] 23:25 Patient moved to 9 [facility] 23:34 Patient visited by Danette Holland,DORIS. kas2 23:34 [employer] on. Pulse ox on. NIBP on. kas2 23:39 EKG done. (by ED staff). Reviewed by Chun Nicole DO. [facility] 23:40 Patient visited by Marco Bradford PCA. v 05/15 00:18 Patient visited by Danette Holland,DORIS. kas2 00:35 Inserted saline lock: 20 gauge in right antecubital area and blood collected. The nn1 patient tolerated the procedure well. No procedures done that require assistance. 00:36 Patient visited by Gutierrez Torres RN. nn1 00:36 Patient visited by Gutierrez Torres RN. nn1 00:36 Amylase Sent. nn1 00:36 Basic Metabolic Profile Sent. nn1 00:36 CBC with Diff Sent. nn1 00:36 Cardiac Injury Profile Sent. nn1 00:36 Lipase Sent. nn1 00:36 Liver Profile Sent. nn1 00:36 Troponin Sent. nn1 00:52 Chun Nicole DO is Attending Physician. mm11 00:52 Patient visited by Chun Nicole DO. mm11 01:11 Patient visited by Chun Nicole DO. mm11 01:35 Patient visited by Danette Holland RN. kas2 01:56 Patient visited by Danette Holland RN. kas2 02:20 Nita Piña is Referral Physician. mm11 02:29 Patient visited by Danette Holland RN. kas2 03:08 Patient visited by Seven French PCA. kb5 03:15 Discontinued IV bleeding controlled, pressure dressing applied, No redness/swelling at [facility] site. 03:16 The patient / caregiver is instructed regarding the plan of care and ED course. [facility] Administered Medications: 02:17 Not Given (Other Intervention Used): Gentamicin 240 mg IM once mm11 02:28 Drug: azithromycin 1 grams [azithromycin 250 mg tablet (4 tabs)] Route: PO; kas2 02:28 Drug: Gentamicin 240 mg [gentamicin 40 mg/mL injection solution] Route: IVPB; Infused [facility] Over: 1 hrs; Site: right antecubital; Order Results: Lab Order: Amylase; SPEC'M 05/15/16 00:34 Test: AMYLASE; Value: 146; Range: 25-115; Abnormal: Above high normal; Units: U/L; Status: F Lab Order: Basic Metabolic Profile; SPEC'M 05/15/16 00:34 Test: GLUCOSE, FASTING; Value: 92; Range: 70-105; Units: MG/DL; Status: F Test: BLOOD UREA NITROGEN; Value: 12; Range: 7-18; Units: MG/DL; Status: F Test: CREATININE FOR GFR; Value: 0.92; Range: 0.70-1.30; Units: MG/DL; Status: F Test: GLOMERULAR FILTRATION RATE; Value: > 60.0; Range: >60; Status: F Test: SODIUM LEVEL; Value: 142; Range: 136-145; Units: MEQ/L; Status: F Test: POTASSIUM SERUM; Value: 4.3; Range: 3.5-5.1; Units: MEQ/L; Status: F Test: CHLORIDE LEVEL; Value: 109; Range: 98-107; Abnormal: Above high normal; Units: MEQ/L; Status: F Test: CARBON DIOXIDE LEVEL; Value: 25; Range: 21-32; Units: MEQ/L; Status: F Test: ANION GAP; Value: 8; Range: 8-16; Units: MEQ/L; Status: F Test: CALCIUM LEVEL; Value: 7.7; Range: 8.5-10.1; Abnormal: Below low normal; Units: MG/DL; Status: F Test Note: ; Units are mL/min/1.73 m2 Chronic Kidney Disease Staging per NKF: Stage I & II GFR >=60 Normal to Mildly Decreased Stage III GFR 30-59 Moderately Decreased Stage IV GFR 15-29 Severely Decreased Stage V GFR <15 Very Little GFR Left ESRD GFR <15 on GENETIC COORDINATOR Lab Order: CBC with Diff; SPEC'M 05/15/16 00:34 Test: WHITE BLOOD COUNT; Value: 4.3; Range: 4.0-10.0; Units: K/mm3; Status: F Test: RED BLOOD COUNT; Value: 5.00; Range: 4.30-6.10; Units: M/mm3; Status: F Test: HEMOGLOBIN; Value: 15.9; Range: 14.0-18.0; Units: g/dl; Status: F Test: HEMATOCRIT; Value: 47.0; Range: 42.0-52.0; Units: %; Status: F Test: MEAN CORPUSCULAR VOLUME; Value: 93.9; Range: 80.0-96.0; Units: fl; Status: F Test: MEAN CORPUSCULAR HEMOGLOBIN; Value: 31.8; Range: 27.0-33.0; Units: pg; Status: F Test: MEAN CORPUSCULAR HGB CONC; Value: 33.9; Range: 32.0-36.5; Units: g/dl; Status: F Test: RED CELL DISTRIBUTION WIDTH; Value: 13.2; Range: 11.5-14.5; Units: %; Status: F Test: PLATELET COUNT, AUTOMATED; Value: 128; Range: 150-450; Abnormal: Below low normal; Units: k/mm3; Status: F Test: NEUTROPHILS %; Value: 38.6; Range: 36.0-66.0; Units: %; Status: F Test: LYMPH %; Value: 50.1; Range: 24.0-44.0; Abnormal: Above high normal; Units: %; Status: F Test: MONO %; Value: 4.9; Range: 0.0-5.0; Units: %; Status: F Test: EOS %; Value: 4.0; Range: 0.0-3.0; Abnormal: Above high normal; Units: %; Status: F Test: BASO %; Value: 0.6; Range: 0.0-1.0; Units: %; Status: F Test: LARGE UNSTAINED CELL %; Value: 1.9; Range: 0.0-4.0; Units: %; Status: F Test: NEUTROPHILS #; Value: 1.7; Range: 1.8-7.7; Abnormal: Below low normal; Units: K/mm3; Status: F Test: LYMPH #; Value: 2.3; Range: 1.5-4.5; Units: K/mm3; Status: F Test: MONO #; Value: 0.2; Range: 0.0-0.8; Units: K/mm3; Status: F Test: EOS #; Value: 0.2; Range: 0.0-0.50; Units: K/mm3; Status: F Test: BASO #; Value: 0.0; Range: 0.0-0.2; Units: K/mm3; Status: F Test: LARGE UNSTAINED CELL #; Value: 0.1; Range: 0.0-0.4; Units: K/mm3; Status: F Lab Order: Cardiac Injury Profile; SPEC'M 05/15/16 00:34 Test: CPK CREATINE PHOSPHOKINASE; Value: 254; Range: 39-308; Units: U/L; Status: F Test: CK-MB VALUE MASS; Value: 1.0; Range: 0.0-3.6; Units: NG/ML; Status: F Test: MB/CK RELATIVE INDEX; Value: 0.39; Range: < OR =4; Status: F Test Note: ; DIAGNOSIS CRITERIA MMB ng/ml Relative Index (RI) NON-AMI < or = 5 N/A ROSAS ZONE > 5 < or = 4 AMI > 5 > 4 Lab Order: Lipase; SPEC'M 05/15/16 00:34 Test: LIPASE; Value: 150; Range: 73-393; Units: U/L; Status: F Lab Order: Liver Profile; SPEC'M 05/15/16 00:34 Test: AST/SGOT; Value: 25; Range: 15-37; Units: U/L; Status: F Test: ALT/SGPT; Value: 32; Range: 12-78; Units: U/L; Status: F Test: ALKALINE PHOSPHATASE; Value: 56; Range: 45-117; Units: U/L; Status: F Test: BILIRUBIN,TOTAL; Value: 0.4; Range: 0.2-1.0; Units: MG/DL; Status: F Test: BILIRUBIN,DIRECT; Value: 0.2; Range: 0.0-0.2; Units: MG/DL; Status: F Test: TOTAL PROTEIN; Value: 5.9; Range: 6.4-8.2; Abnormal: Below low normal; Units: GM/DL; Status: F Test: ALBUMIN; Value: 3.1; Range: 3.2-5.2; Abnormal: Below low normal; Units: GM/DL; Status: F Test: ALBUMIN/GLOBULIN RATIO; Value: 1.11; Range: 1.00-1.93; Status: F Lab Order: Troponin; SPEC'M 05/15/16 00:34 Test: TROPONIN I; Value: < 0.02; Range: < 0.10; Units: NG/ML; Status: F Test Note: ; Troponin I Reference Interval for [place] LOCI: 99th Percentile= 0.00-0.045 ng/ml Risk Stratification: <= 0.10 ng/ml Decreased Risk for Adverse Clinical Events. 0.10-1.50 ng/ml Increased Risk for Adverse Clinical Events. Evaluation of additional criterion and/or repeat testing in 2-6 hours is suggested to rule out myocardial damage. >= 1.50 ng/ml Indicative of Myocardial Injury. Lab Order: UA; SPEC'M 05/15/16 01:19 Test: APPEARANCE, URINE; Value: CLEAR; Range: CLEAR; Status: F Test: COLOR, URINE; Value: YELLOW; Range: YELLOW; Status: F Test: PH,URINE; Value: 5.0; Range: 5.0-9.0; Units: UNITS; Status: F Test: SPECIFIC GRAVITY URINE AUTO; Value: 1.016; Range: 1.002-1.035; Status: F Test: PROTEIN, URINE AUTO; Value: NEGATIVE; Range: NEGATIVE; Units: mg/dL; Status: F Test: GLUCOSE, URINE (UA) AUTO; Value: NEGATIVE; Range: NEGATIVE; Units: mg/dL; Status: F Test: KETONE, URINE AUTO; Value: NEGATIVE; Range: NEGATIVE; Units: mg/dL; Status: F Test: UROBILINOGEN, URINE AUTO; Value: 0.2; Range: 0.0-2.0; Units: mg/dL; Status: F Test: BILIRUBIN, URINE AUTO; Value: NEGATIVE; Range: NEGATIVE; Status: F Test: NITRITE, URINE AUTO; Value: NEGATIVE; Range: NEGATIVE; Status: F Test: LEUKOCYTE ESTERASE, URINE AUTO; Value: NEGATIVE; Range: NEGATIVE; Status: F Test: BLOOD, URINE BLOOD; Value: NEGATIVE; Range: NEGATIVE; Status: F Test: WBC, URINE AUTO; Value: 1; Range: 0-3; Units: /HPF; Status: F Test: RBC, URINE AUTO; Value: 1; Range: 0-3; Units: /HPF; Status: F Test: BACTERIA, URINE AUTO; Value: NEGATIVE; Range: NEGATIVE; Status: F Test: SQUAMOUS EPITHELIAL CELL UR AU; Value: 0; Range: 0-6; Units: /HPF; Status: F Test: MUCUS, URINE; Value: SMALL; Range: NEGATIVE; Status: F Test: HYALINE CAST, URINE AUTO; Value: 0; Range: 0-1; Units: /LPF; Status: F Lab Order: SYPHILIS; SPEC'M 05/15/16 00:34 Test: SYPHILIS; Range: NONREACTIVE; Status: I Outcome: 02:21 Discharge ordered by Provider. mm11 03:16 Discharge Assessment: patient administered narcotics - no. The following High Risk kas2 Discharge criteria are identified: None. Discharged to home ambulatory. Condition: good Condition: stable Condition: improved. No special radiology studies were completed. Property :Personal belongings accompany Pt. 03:17 Patient left the ED. [facility] Signatures: Seven French, COMMERCIAL ESCROW OFFICER COMMERCIAL ESCROW OFFICER kb5 Chun Nicole, DO mm11 Fredrick Luna,RN RN jmb Gutierrez TorresRN RN nn1 Danette Holland RN RN kas2 Marco Bradford, COMMERCIAL ESCROW OFFICER COMMERCIAL ESCROW OFFICER jmv Corrections: (The following items were deleted from the chart) 01:17 01:14 SYPHILIS+LAB sent. nn1 EDMS MTDD
--- NOTE | 2016-05-16 08:23 | ECGEPIP ---
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
--- NOTE | 2016-05-17 04:17 | EDDOCDS ---
Nurse's Notes [facility] Name: Cait Riggs Age: 45 yrs Sex: Male : 1970 Arrival Date: 05/14/2016 Time: 23:11 Bed 9 Private MD: Nita Piña C Diagnosis: Nonspecific urethritis Presentation: 05/14 23:22 Presenting complaint: Patient states: Patient reports chest pain that has been present jmb all day. Patient also reports lower abdomen pain. Aspirin was not taken prior to arrival. Adult Sepsis Screening: The patient does not have new or worsening altered mentation. Patient's respiratory rate is less than 22. Systolic blood pressure is greater than 100. Patient has a qSOFA score of 0- Negative Sepsis Screen. Suicide/Homicide risk assessment- the patient denies having any suicidal and/or homicidal ideations and does not present with any other emotional, behavioral or mental health complaints. Status: Patient is not a marketing services coordinator or dependent. Transition of care: patient was not received from another setting of care. 23:22 Acuity: JIMMY Level 3 b 23:22 Method Of Arrival: Walkin/Carried/Asstd jmb Triage Assessment: 23:24 General: Appears in no apparent distress, comfortable, Behavior is appropriate for age, jmb cooperative. Pain: Location: chest Pain currently is 10 out of 10 on a pain scale. HIV screening NA for this visit Offered previously. Neurological: Level of Consciousness is awake, alert, obeys commands, Oriented to person, place, time, Speech is normal, Facial symmetry appears normal, Facial symmetry: tongue is midline. Cardiovascular: Chest pain is described as mild, radiates Does not radiate. episodes are continuous began all day. Derm: Skin is normal. Musculoskeletal: Range of motion intact in all extremities. Historical: - Allergies: Amoxicillin (Hives); Cefuroxime (Vomit); Clindamycin (Hives); Doxycycline (Hives); IV Dye; PENICILLINS ("it freaks me out"); Protonix (Vomit); Toradol (Vomit); - Home Meds: 1. Maalox Oral 2. omeprazole 20 mg Oral TbEC 20 mg three times a day 3. Pepto-Bismol Oral as needed 4. ranitidine HCl 150 mg Oral tab 3 times per day - PMHx: abdominal hernia x2; cardiomegaly; GERD; Hiatal Hernia; Hypertension; Interstitial Cystitis; Pancreatitis; - PSHx: Hernia repair; - Social history: Smoking status: Patient states former smoker of tobacco. No barriers to communication noted, The patient speaks fluent Persian, Speaks appropriately for age. - Family history: Not pertinent. - : The pt / caregiver states he / she is not on anticoagulants. Home medication list is obtained from the patient. - Exposure Risk Screening:: None identified. Screenin:33 Screening information is obtained from the patient. Fall risk: No risks identified. kas2 Assistance ADL's: requires no assistance with activities of daily living. Abuse/DV Screen: The patient / caregiver reports he/she is: not in a situation that causes fear, pain or injury. Nutritional screening: No deficits noted. Advance Directives: Currently, there is no health care proxy. There is no active DNR order. There is no living will. There is no Power of Manager Pharmaceutical. home support is adequate. Assessment: 23:32 General: Appears in no apparent distress, uncomfortable, well nourished, well groomed, kas2 Behavior is appropriate for age, cooperative. Pain: Location: chest Pain currently is 8 out of 10 on a pain scale. Neurological: Level of Consciousness is awake, alert, Oriented to person, place, time. Cardiovascular: Capillary refill < 3 seconds Heart tones S1 S2 present Rhythm is sinus rhythm No ectopy. Respiratory: Airway is patent Respiratory effort is even, unlabored, Respiratory pattern is regular, symmetrical, Breath sounds are clear bilaterally. Derm: Skin is intact, Skin is dry, Skin is pink, warm & dry. Skin temperature is warm. 05/15 01:30 General: Appears in no apparent distress, comfortable, Behavior is appropriate for age, kas2 cooperative. Pain: Denies pain. Neurological: Level of Consciousness is awake, alert, Oriented to person, place, time. Cardiovascular: Rhythm is sinus rhythm No ectopy. Derm: Skin is intact, Skin is dry, Skin is pink, warm & dry. Skin temperature is warm. 02:28 General: Appears in no apparent distress, comfortable, Behavior is appropriate for age, kas2 cooperative. Pain: Denies pain. Pain: Denies pain. Neurological: Level of Consciousness is awake, alert, Oriented to person, place, time. Cardiovascular: Rhythm is sinus rhythm No ectopy. Respiratory: Airway is patent Respiratory effort is even, unlabored, Respiratory pattern is regular, symmetrical. Derm: Skin is intact, Skin is dry, Skin is pink, warm & dry. Skin temperature is warm. Vital Signs: 05/14 23:13 BP 136 / 65; Pulse 69; Resp 18; Temp 96.5(O); Pulse Ox 100% on R/A; Weight 83.46 kg kb5 (M); Height 5 ft. 11 in. (180.34 cm) (R); Pain 10/10; 05/15 00:28 BP 118 / 61 (auto/); kas2 00:28 Pulse 54 MON; kas2 00:43 BP 121 / 67 (auto/); kas2 00:43 Pulse 54 MON; Pulse Ox 98% ; kas2 00:58 BP 130 / 71 (auto/); kas2 00:58 Pulse 68 MON; Pulse Ox 98% ; kas2 01:33 Resp 18; Temp 98.6(O); Pain 0/10; kas2 03:07 BP 118 / 62; Pulse 58; Resp 18; Temp 98.8(O); Pulse Ox 96% on R/A; Pain 0/10; kb5 05/14 23:13 Body Mass Index 25.66 (83.46 kg, 180.34 cm) [facility] Vitals: 05/14 23:13 Log In Time: May 14, 2016 at 23:11. kb5 ED Course: 23:12 Patient visited by Seven French PCA. 5 23:12 Patient moved to Waiting [facility] 23:13 Nita Piña is Private Physician. [facility] 23:23 Triage Initiated [facility] 23:25 Danette Holland,RN is Primary Nurse. [facility] 23:25 Patient moved to 9 [facility] 23:34 Patient visited by Danetet Holland,DORIS. kas2 23:34 monitoring manager on. Pulse ox on. NIBP on. kas2 23:39 EKG done. (by ED staff). Reviewed by Chun Nicole DO. [facility] 23:40 Patient visited by Marco Bradford PCA. v 05/15 00:18 Patient visited by Danette Holland,DORIS. kas2 00:35 Inserted saline lock: 20 gauge in right antecubital area and blood collected. The nn1 patient tolerated the procedure well. No procedures done that require assistance. 00:36 Patient visited by Gutierrez Torres RN. nn1 00:36 Patient visited by Gutierrez Torres RN. nn1 00:36 Amylase Sent. nn1 00:36 Basic Metabolic Profile Sent. nn1 00:36 CBC with Diff Sent. nn1 00:36 Cardiac Injury Profile Sent. nn1 00:36 Lipase Sent. nn1 00:36 Liver Profile Sent. nn1 00:36 Troponin Sent. nn1 00:52 Chun Nicole DO is Attending Physician. mm11 00:52 Patient visited by Chun Nicole DO. mm11 01:11 Patient visited by Chun Nicole DO. mm11 01:35 Patient visited by Danette Holland RN. kas2 01:56 Patient visited by Danette Holland RN. kas2 02:20 Nita Piña is Referral Physician. mm11 02:29 Patient visited by Danette Holland RN. kas2 03:08 Patient visited by Seven French PCA. kb5 03:15 Discontinued IV bleeding controlled, pressure dressing applied, No redness/swelling at [facility] site. 03:16 The patient / caregiver is instructed regarding the plan of care and ED course. kas2 03:35 Patient name changed from Lario\\S\\\\S\\Keely\\S\\ to Lario\\S\\ \\S\\Keely. EDMS 03:38 [facility] Payment Agreement was scanned into [employer] and attached to record. [facility] 09:24 T-Sheet-- Draft Copy was scanned into [employer] and attached to record. 09:25 ECG/EKG was scanned into [employer] and attached to record. 05/16 08:41 EKG-ADULT Returned. EDMS Administered Medications: 05/15 02:17 Not Given (Other Intervention Used): Gentamicin 240 mg IM once mm11 02:28 Drug: azithromycin 1 grams [azithromycin 250 mg tablet (4 tabs)] Route: PO; [facility] [place] 02:28 Drug: Gentamicin 240 mg [gentamicin 40 mg/mL injection solution] Route: IVPB; Infused [facility] Over: 1 hrs; Site: right antecubital; Order Results: Lab Order: Amylase; SPEC'M 05/15/16 00:34 Test: AMYLASE; Value: 146; Range: 25-115; Abnormal: Above high normal; Units: U/L; Status: F Lab Order: Basic Metabolic Profile; SPEC05/15/16 00:34 Test: GLUCOSE, FASTING; Value: 92; Range: 70-105; Units: MG/DL; Status: F Test: BLOOD UREA NITROGEN; Value: 12; Range: 7-18; Units: MG/DL; Status: F Test: CREATININE FOR GFR; Value: 0.92; Range: 0.70-1.30; Units: MG/DL; Status: F Test: GLOMERULAR FILTRATION RATE; Value: > 60.0; Range: >60; Status: F Test: SODIUM LEVEL; Value: 142; Range: 136-145; Units: MEQ/L; Status: F Test: POTASSIUM SERUM; Value: 4.3; Range: 3.5-5.1; Units: MEQ/L; Status: F Test: CHLORIDE LEVEL; Value: 109; Range: 98-107; Abnormal: Above high normal; Units: MEQ/L; Status: F Test: CARBON DIOXIDE LEVEL; Value: 25; Range: 21-32; Units: MEQ/L; Status: F Test: ANION GAP; Value: 8; Range: 8-16; Units: MEQ/L; Status: F Test: CALCIUM LEVEL; Value: 7.7; Range: 8.5-10.1; Abnormal: Below low normal; Units: MG/DL; Status: F Test Note: ; Units are mL/min/1.73 m2 Chronic Kidney Disease Staging per NKF: Stage I & II GFR >=60 Normal to Mildly Decreased Stage III GFR 30-59 Moderately Decreased Stage IV GFR 15-29 Severely Decreased Stage V GFR <15 Very Little GFR Left ESRD GFR <15 on INFORMATION CONSULTANT Lab Order: CBC with Diff; 05/15/16 00:34 Test: WHITE BLOOD COUNT; Value: 4.3; Range: 4.0-10.0; Units: K/mm3; Status: F Test: RED BLOOD COUNT; Value: 5.00; Range: 4.30-6.10; Units: M/mm3; Status: F Test: HEMOGLOBIN; Value: 15.9; Range: 14.0-18.0; Units: g/dl; Status: F Test: HEMATOCRIT; Value: 47.0; Range: 42.0-52.0; Units: %; Status: F Test: MEAN CORPUSCULAR VOLUME; Value: 93.9; Range: 80.0-96.0; Units: fl; Status: F Test: MEAN CORPUSCULAR HEMOGLOBIN; Value: 31.8; Range: 27.0-33.0; Units: pg; Status: F Test: MEAN CORPUSCULAR HGB CONC; Value: 33.9; Range: 32.0-36.5; Units: g/dl; Status: F Test: RED CELL DISTRIBUTION WIDTH; Value: 13.2; Range: 11.5-14.5; Units: %; Status: F Test: PLATELET COUNT, AUTOMATED; Value: 128; Range: 150-450; Abnormal: Below low normal; Units: k/mm3; Status: F Test: NEUTROPHILS %; Value: 38.6; Range: 36.0-66.0; Units: %; Status: F Test: LYMPH %; Value: 50.1; Range: 24.0-44.0; Abnormal: Above high normal; Units: %; Status: F Test: MONO %; Value: 4.9; Range: 0.0-5.0; Units: %; Status: F Test: EOS %; Value: 4.0; Range: 0.0-3.0; Abnormal: Above high normal; Units: %; Status: F Test: BASO %; Value: 0.6; Range: 0.0-1.0; Units: %; Status: F Test: LARGE UNSTAINED CELL %; Value: 1.9; Range: 0.0-4.0; Units: %; Status: F Test: NEUTROPHILS #; Value: 1.7; Range: 1.8-7.7; Abnormal: Below low normal; Units: K/mm3; Status: F Test: LYMPH #; Value: 2.3; Range: 1.5-4.5; Units: K/mm3; Status: F Test: MONO #; Value: 0.2; Range: 0.0-0.8; Units: K/mm3; Status: F Test: EOS #; Value: 0.2; Range: 0.0-0.50; Units: K/mm3; Status: F Test: BASO #; Value: 0.0; Range: 0.0-0.2; Units: K/mm3; Status: F Test: LARGE UNSTAINED CELL #; Value: 0.1; Range: 0.0-0.4; Units: K/mm3; Status: F Lab Order: Cardiac Injury Profile; [facility] 05/15/16 00:34 Test: CPK CREATINE PHOSPHOKINASE; Value: 254; Range: 39-308; Units: U/L; Status: F Test: CK-MB VALUE MASS; Value: 1.0; Range: 0.0-3.6; Units: NG/ML; Status: F Test: MB/CK RELATIVE INDEX; Value: 0.39; Range: < OR =4; Status: F Test Note: ; DIAGNOSIS CRITERIA MMB ng/ml Relative Index (RI) NON-AMI < or = 5 N/A ROSAS ZONE > 5 < or = 4 AMI > 5 > 4 Lab Order: Lipase; [facility] 05/15/16 00:34 Test: LIPASE; Value: 150; Range: 73-393; Units: U/L; Status: F Lab Order: Liver Profile; [facility] 05/15/16 00:34 Test: AST/SGOT; Value: 25; Range: 15-37; Units: U/L; Status: F Test: ALT/SGPT; Value: 32; Range: 12-78; Units: U/L; Status: F Test: ALKALINE PHOSPHATASE; Value: 56; Range: 45-117; Units: U/L; Status: F Test: BILIRUBIN,TOTAL; Value: 0.4; Range: 0.2-1.0; Units: MG/DL; Status: F Test: BILIRUBIN,DIRECT; Value: 0.2; Range: 0.0-0.2; Units: MG/DL; Status: F Test: TOTAL PROTEIN; Value: 5.9; Range: 6.4-8.2; Abnormal: Below low normal; Units: GM/DL; Status: F Test: ALBUMIN; Value: 3.1; Range: 3.2-5.2; Abnormal: Below low normal; Units: GM/DL; Status: F Test: ALBUMIN/GLOBULIN RATIO; Value: 1.11; Range: 1.00-1.93; Status: F Lab Order: Troponin; [facility] 05/15/16 00:34 Test: TROPONIN I; Value: < 0.02; Range: < 0.10; Units: NG/ML; Status: F Test Note: ; Troponin I Reference Interval for [employer] LOCI: 99th Percentile= 0.00-0.045 ng/ml Risk Stratification: <= 0.10 ng/ml Decreased Risk for Adverse Clinical Events. 0.10-1.50 ng/ml Increased Risk for Adverse Clinical Events. Evaluation of additional criterion and/or repeat testing in 2-6 hours is suggested to rule out myocardial damage. >= 1.50 ng/ml Indicative of Myocardial Injury. Lab Order: UA; SPEC'M 05/15/16 01:19 Test: APPEARANCE, URINE; Value: CLEAR; Range: CLEAR; Status: F Test: COLOR, URINE; Value: YELLOW; Range: YELLOW; Status: F Test: PH,URINE; Value: 5.0; Range: 5.0-9.0; Units: UNITS; Status: F Test: SPECIFIC GRAVITY URINE AUTO; Value: 1.016; Range: 1.002-1.035; Status: F Test: PROTEIN, URINE AUTO; Value: NEGATIVE; Range: NEGATIVE; Units: mg/dL; Status: F Test: GLUCOSE, URINE (UA) AUTO; Value: NEGATIVE; Range: NEGATIVE; Units: mg/dL; Status: F Test: KETONE, URINE AUTO; Value: NEGATIVE; Range: NEGATIVE; Units: mg/dL; Status: F Test: UROBILINOGEN, URINE AUTO; Value: 0.2; Range: 0.0-2.0; Units: mg/dL; Status: F Test: BILIRUBIN, URINE AUTO; Value: NEGATIVE; Range: NEGATIVE; Status: F Test: NITRITE, URINE AUTO; Value: NEGATIVE; Range: NEGATIVE; Status: F Test: LEUKOCYTE ESTERASE, URINE AUTO; Value: NEGATIVE; Range: NEGATIVE; Status: F Test: BLOOD, URINE BLOOD; Value: NEGATIVE; Range: NEGATIVE; Status: F Test: WBC, URINE AUTO; Value: 1; Range: 0-3; Units: /HPF; Status: F Test: RBC, URINE AUTO; Value: 1; Range: 0-3; Units: /HPF; Status: F Test: BACTERIA, URINE AUTO; Value: NEGATIVE; Range: NEGATIVE; Status: F Test: SQUAMOUS EPITHELIAL CELL UR AU; Value: 0; Range: 0-6; Units: /HPF; Status: F Test: MUCUS, URINE; Value: SMALL; Range: NEGATIVE; Status: F Test: HYALINE CAST, URINE AUTO; Value: 0; Range: 0-1; Units: /LPF; Status: F Lab Order: Urine Culture; SPEC'M 05/15/16 01:19 Test: URINE CULTURE; Value: <EXTERNAL COMMENT eCWMed> FULL REPORT IN LAB NOTES (eCW and Medent).; Status: F Test: URINE CULTURE; Value: URINE CULTURE RESULT NO GROWTH; Status: F Lab Order: GC & Chlamydia Amplification; SPEC'M 05/15/16 01:19 Test: CHLAMYDIA DNA AMPLIFICATION; Value: NEGATIVE; Range: NEGATIVE; Status: F Test: GC DNA AMPLIFICATION; Value: NEGATIVE; Range: NEGATIVE; Status: F Lab Order: SYPHILIS; SPEC'M 05/15/16 00:34 Test: SYPHILIS; Value: NONREACTIVE; Range: NONREACTIVE; Status: F Radiology Order: EKG-ADULT Test: EKG-ADULT REASON FOR EXAMINATION: Chest Pain; Stationary ECG Study; [facility] - ED; ; Test Date: 2016-05-14; Pat Name: CAIT RIGGS Department:; Room: -; Gender: M Housing Relocation: [place]; : 1970 Requested By: CHUN Colmenares; Order Number: [id number] Reading MD: Jaymie Mehta; Measurements; Intervals Magazine; Rate: 57 P: 63; OH: 142 QRS: 17; QRSD: 99 T: 41; QT: 385; QTc: 375; Interpretive Statements; SINUS BRADYCARDIA; PROBABLE EARLY REPOLARIZATION, CLINICAL CORRELATION; SIMILAR 05/02/16; Electronically Signed On 05-16-2016 8:23:28 EST by Jaymie Mehta; Outcome: 02:21 Discharge ordered by Provider. mm11 03:16 Discharge Assessment: patient administered narcotics - no. The following High Risk [facility] Discharge criteria are identified: None. Discharged to home ambulatory. Condition: good Condition: stable Condition: improved. No special radiology studies were completed. Property :Personal belongings accompany Pt. 03:17 Patient left the ED. [facility] [place] Signatures: Dispatcher [employer] Josette Victoria, Reg Reg gb TurinSeven frias, REGISTRATION SCHEDULING SPECIALIST REGISTRATION SCHEDULING SPECIALIST kb5 Chun Nicole, DO mm11 Fredrick Luna, RN RN jmb Patty Michaels Nikkole,RN RN nn1 Danette HollandRN RN kas2 Marco Bradford, REGISTRATION SCHEDULING SPECIALIST REGISTRATION SCHEDULING SPECIALIST jmv Corrections: (The following items were deleted from the chart) 01:17 01:14 SYPHILIS+LAB sent. nn1 EDMS Chart Complete MTDD
--- NOTE | 2016-05-17 04:17 | EDDOCDS ---
Physician Documentation [facility] Name: Cait Riggs Age: 45 yrs Sex: Male : 1970 Arrival Date: 05/14/2016 Time: 23:11 Bed 9 Private MD: Nita Piña C Disposition: 05/15/16 02:21 Discharged to Home/Self Care. Impression: Nonspecific urethritis. - Condition is Stable. - Discharge Instructions: Urethritis, Adult. - Medication Reconciliation, Local Pharmacy Hours form. - Follow up: Nita Piña; When: 4 - 5 days; Reason: Continuance of care. - Problem is an acute exacerbation. - Symptoms have improved. Historical: - Allergies: Amoxicillin (Hives); Cefuroxime (Vomit); Clindamycin (Hives); Doxycycline (Hives); IV Dye; PENICILLINS ("it freaks me out"); Protonix (Vomit); Toradol (Vomit); - Home Meds: 1. Maalox Oral 2. omeprazole 20 mg Oral TbEC 20 mg three times a day 3. Pepto-Bismol Oral as needed 4. ranitidine HCl 150 mg Oral tab 3 times per day - PMHx: abdominal hernia x2; cardiomegaly; GERD; Hiatal Hernia; Hypertension; Interstitial Cystitis; Pancreatitis; - PSHx: Hernia repair; - Social history: Smoking status: Patient states former smoker of tobacco. No barriers to communication noted, The patient speaks fluent South Korean, Speaks appropriately for age. - Family history: Not pertinent. - : The pt / caregiver states he / she is not on anticoagulants. Home medication list is obtained from the patient. - Exposure Risk Screening:: None identified. Vital Signs: 05/14 23:13 BP 136 / 65; Pulse 69; Resp 18; Temp 96.5(O); Pulse Ox 100% on R/A; Weight 83.46 kg / kb5 184 lbs (M); Height 5 ft. 11 in. (180.34 cm) (R); Pain 10; 05/15 00:28 BP 118 / 61 (auto/); kas2 00:28 Pulse 54 MON; kas2 00:43 BP 121 / 67 (auto/); kas2 00:43 Pulse 54 MON; Pulse Ox 98% ; kas2 00:58 BP 130 / 71 (auto/); kas2 00:58 Pulse 68 MON; Pulse Ox 98% ; kas2 01:33 Resp 18; Temp 98.6(O); Pain 0/10; kas2 03:07 BP 118 / 62; Pulse 58; Resp 18; Temp 98.8(O); Pulse Ox 96% on R/A; Pain 0/10; kb5 05/14 23:13 Body Mass Index 25.66 (83.46 kg, 180.34 cm) [facility] MDM: 05/14 23:27 ECG WITH READING ER PHYS+CARDIAG ordered. EDMS 02 00:23 IV Saline Lock ordered. mm11 00:23 Undress patient appropriately for examination ordered. mm11 00:24 Amylase Ordered. EDMS 00:24 Basic Metabolic Profile Ordered. EDMS 00:24 CBC with Diff Ordered. EDMS 00:24 Cardiac Injury Profile Ordered. EDMS 00:24 Lipase Ordered. EDMS 00:24 Liver Profile Ordered. EDMS 00:24 Troponin Ordered. EDMS 00:24 NOTHING BY MOUTH+DIET ordered. EDMS 01:11 Amylase Reviewed. mm11 01:11 Basic Metabolic Profile Reviewed. mm11 01:11 CBC with Diff Reviewed. mm11 01:11 Liver Profile Reviewed. mm11 01:11 Cardiac Injury Profile Reviewed. mm11 01:11 Lipase Reviewed. mm11 01:11 Troponin Reviewed. mm11 01:13 UA Ordered. EDMS 01:13 Urine Culture Ordered. EDMS 01:13 GC & Chlamydia Amplification Ordered. EDMS 01:17 SYPHILIS Ordered. EDMS 01:35 Financial registration complete. [facility] 01:38 Amylase Reviewed. mm11 01:38 Basic Metabolic Profile Reviewed. mm11 01:38 Liver Profile Reviewed. mm11 01:38 Cardiac Injury Profile Reviewed. mm11 01:38 Lipase Reviewed. mm11 01:38 Troponin Reviewed. mm11 01:38 UA Reviewed. mm11 01:57 SYPHILIS Reviewed. mm11 01:59 Gentamicin 240 mg IM once ordered. mm11 01:59 azithromycin 1 grams PO once ordered. mm11 02:17 Gentamicin 240 mg IVPB once over 1 hrs; dilute in 50-200mL of NS or D5W, less volume mm11 for Peds pts ordered. 03:38 [facility] Payment Agreement was scanned into [employer] and attached to record. [facility] 09:24 T-Sheet-- Draft Copy was scanned into [employer] and attached to record. gb 09:25 ECG/EKG was scanned into [employer] and attached to record. Administered Medications: 02:17 Not Given (Other Intervention Used): Gentamicin 240 mg IM once mm11 02:28 Drug: azithromycin 1 grams [azithromycin 250 mg tablet (4 tabs)] Route: PO; kas2 02:28 Drug: Gentamicin 240 mg [gentamicin 40 mg/mL injection solution] Route: IVPB; Infused kas2 Over: 1 hrs; Site: right antecubital; Signatures: Dispatcher [employer] EDMS Josette Brcieno, Reg Reg Chun King, DO mm11 Fredrick Luna RN RN Patty Noyola Danette Dickson RN RN kas2 The chart was reviewed and I authenticate all verbal orders and agree with the evaluation and treatment provided.Corrections: (The following items were deleted from the chart) 01:17 01:13 SYPHILIS+LAB ordered. EDMS EDMS Attachments: 03:38 [facility] Payment Agreement [facility] 09:24 T-Sheet-- Draft Copy gb 09:25 ECG/EKG gb Chart Complete MTDD
--- NOTE | 2016-05-17 04:17 | EDDOCDS ---
Physician Documentation [facility] Name: Cait Riggs Age: 45 yrs Sex: Male : 1970 Arrival Date: 05/14/2016 Time: 23:11 Bed 9 Private MD: Nita Piña C Disposition: 05/15/16 02:21 Discharged to Home/Self Care. Impression: Nonspecific urethritis. - Condition is Stable. - Discharge Instructions: Urethritis, Adult. - Medication Reconciliation, Local Pharmacy Hours form. - Follow up: Nita Piña; When: 4 - 5 days; Reason: Continuance of care. - Problem is an acute exacerbation. - Symptoms have improved. Historical: - Allergies: Amoxicillin (Hives); Cefuroxime (Vomit); Clindamycin (Hives); Doxycycline (Hives); IV Dye; PENICILLINS ("it freaks me out"); Protonix (Vomit); Toradol (Vomit); - Home Meds: 1. Maalox Oral 2. omeprazole 20 mg Oral TbEC 20 mg three times a day 3. Pepto-Bismol Oral as needed 4. ranitidine HCl 150 mg Oral tab 3 times per day - PMHx: abdominal hernia x2; cardiomegaly; GERD; Hiatal Hernia; Hypertension; Interstitial Cystitis; Pancreatitis; - PSHx: Hernia repair; - Social history: Smoking status: Patient states former smoker of tobacco. No barriers to communication noted, The patient speaks fluent Egyptian, Speaks appropriately for age. - Family history: Not pertinent. - : The pt / caregiver states he / she is not on anticoagulants. Home medication list is obtained from the patient. - Exposure Risk Screening:: None identified. Vital Signs: 05/14 23:13 BP 136 / 65; Pulse 69; Resp 18; Temp 96.5(O); Pulse Ox 100% on R/A; Weight 83.46 kg / kb5 184 lbs (M); Height 5 ft. 11 in. (180.34 cm) (R); Pain 10; 05/15 00:28 BP 118 / 61 (auto/); kas2 00:28 Pulse 54 MON; kas2 00:43 BP 121 / 67 (auto/); kas2 00:43 Pulse 54 MON; Pulse Ox 98% ; kas2 00:58 BP 130 / 71 (auto/); kas2 00:58 Pulse 68 MON; Pulse Ox 98% ; kas2 01:33 Resp 18; Temp 98.6(O); Pain 0/10; kas2 03:07 BP 118 / 62; Pulse 58; Resp 18; Temp 98.8(O); Pulse Ox 96% on R/A; Pain 0/10; kb5 05/14 23:13 Body Mass Index 25.66 (83.46 kg, 180.34 cm) [facility] MDM: 05/14 23:27 ECG WITH READING ER PHYS+CARDIAG ordered. EDMS 02 00:23 IV Saline Lock ordered. mm11 00:23 Undress patient appropriately for examination ordered. mm11 00:24 Amylase Ordered. EDMS 00:24 Basic Metabolic Profile Ordered. EDMS 00:24 CBC with Diff Ordered. EDMS 00:24 Cardiac Injury Profile Ordered. EDMS 00:24 Lipase Ordered. EDMS 00:24 Liver Profile Ordered. EDMS 00:24 Troponin Ordered. EDMS 00:24 NOTHING BY MOUTH+DIET ordered. EDMS 01:11 Amylase Reviewed. mm11 01:11 Basic Metabolic Profile Reviewed. mm11 01:11 CBC with Diff Reviewed. mm11 01:11 Liver Profile Reviewed. mm11 01:11 Cardiac Injury Profile Reviewed. mm11 01:11 Lipase Reviewed. mm11 01:11 Troponin Reviewed. mm11 01:13 UA Ordered. EDMS 01:13 Urine Culture Ordered. EDMS 01:13 GC & Chlamydia Amplification Ordered. EDMS 01:17 SYPHILIS Ordered. EDMS 01:35 Financial registration complete. [facility] 01:38 Amylase Reviewed. mm11 01:38 Basic Metabolic Profile Reviewed. mm11 01:38 Liver Profile Reviewed. mm11 01:38 Cardiac Injury Profile Reviewed. mm11 01:38 Lipase Reviewed. mm11 01:38 Troponin Reviewed. mm11 01:38 UA Reviewed. mm11 01:57 SYPHILIS Reviewed. mm11 01:59 Gentamicin 240 mg IM once ordered. mm11 01:59 azithromycin 1 grams PO once ordered. mm11 02:17 Gentamicin 240 mg IVPB once over 1 hrs; dilute in 50-200mL of NS or D5W, less volume mm11 for Peds pts ordered. 03:38 [facility] Payment Agreement was scanned into [employer] and attached to record. [facility] 09:24 T-Sheet-- Draft Copy was scanned into [employer] and attached to record. gb 09:25 ECG[place]EKG [place] and attached to record. Administered Medications: 02:17 Not Given (Other Intervention Used): Gentamicin 240 mg IM once mm11 02:28 Drug: azithromycin 1 grams [azithromycin 250 mg tablet (4 tabs)] Route: PO; kas2 02:28 Drug: Gentamicin 240 mg [gentamicin 40 mg/mL injection solution] Route: IVPB; Infused kas2 Over: 1 hrs; Site: right antecubital; Signatures: Dispatcher [employer] EDMS Josette Briceno, Reg Reg Chun King, DO mm11 Fredrick Luna RN RN Patty Noyola Danette Dickson RN RN kas2 The chart was reviewed and I authenticate all verbal orders and agree with the evaluation and treatment provided.Corrections: (The following items were deleted from the chart) 01:17 01:13 SYPHILIS+LAB ordered. EDMS EDMS Attachments: 03:38 [facility] Payment Agreement [facility] 09:24 T-Sheet-- Draft Copy gb 09:25 ECG/EKG gb Chart Complete MTDD
== END 2016-05-15 03:17 | disposition home or self-care (01) ==
LOC: M ED 23:11
DX: N28.89 Other specified disorders of kidney and ureter (principal); I51.7 Cardiomegaly; K21.9 Gastro-esophageal reflux disease without esophagitis; I10 Essential (primary) hypertension; N30.10 Interstitial cystitis (chronic) without hematuria; Z87.891 Personal history of nicotine dependence; Z79.899 Other long term (current) drug therapy; Z88.0 Allergy status to penicillin; Z88.1 Allergy status to other antibiotic agents; Z91.041 Radiographic dye allergy status; Z88.8 Allergy status to other drugs, medicaments and biological substances; Z88.6 Allergy status to analgesic agent
CPT/HCPCS: 36415; 80048; 80076; 81001; 82150; 82550; 82553; 83690; 85025; 86780; 87086; 87491; 87591; 93005; 96374; 99284; J1580

== ENCOUNTER → 2016-05-17 | Outpatient (CLI) | payer OTHER ==
--- NOTE | 2016-05-17 11:46 | REP ---
BILIARY SCAN WITH GALLBLADDER EJECTION FRACTION: 05/17/2016. Clinical history: Abdominal pain, acid reflux, nausea, vomiting, diarrhea, constipation. Has history of hiatal hernia. Intended weight loss over the past year. Comparison: CT abdomen and pelvis 05/11/2016, gallbladder ultrasound 03/28/2016. Findings: The patient received 6.5 mCi technetium 99m mebrofenin via an IV. Sequential 5-minute images in anterior projection over the liver followed by region of interest drawn about the gallbladder and sequential 2-minute images for 30 minutes. This generated gallbladder ejection fraction curves by a semiautomated method. The patient consumed 8 ounces of Ensure for fatty meal beginning 65 minutes post tracer injection. There is homogeneous tracer uptake throughout the liver. Activity is first seen in the duodenum at 30 minutes. Activity is first seen in the gallbladder fossa at 35 minutes. There is progressive increase in activity in the gallbladder fossa and progression of washout of activity from the liver with peristalsis in small bowel evident as well. The gallbladder ejection fraction is 22% at 60 minutes. With this technique, the normal ejection fraction is greater than 35%. Impression: 1. Homogeneous uptake of tracer with prompt appearance of tracer activity in the gallbladder, duodenum and small bowel with good washout of activity from the liver. 2. The gallbladder ejection fraction is 22% at 1 hour with a normal range greater than 35% with this technique. This represents biliary dyskinesia. Signed by Mart Taylor MD 05/17/2016 01:21 P
== END ==
LOC: M RAD 08:41
PROVIDERS: ATTEND Internal Medicine Gastroenterology
DX: R07.9 Chest pain, unspecified (principal); K82.8 Other specified diseases of gallbladder

== ENCOUNTER 2016-05-24 23:23 | Emergency (ER) | payer OTHER ==
[~2016-05-24] VITALS: Ht 180.3 cm; Wt 90.7 kg
[2016-05-24] MEDS ORDERED: MAALSUS20 PO (23:52)
[2016-05-25] MEDS ORDERED: GENTAMICIN SULF INJ 80MG/2ML VIAL (J1580) IM ONE (04:15)
[2016-05-25] MEDS ORDERED: AZITHROMYCIN 250 MG TAB PO ONE (04:15)
[2016-05-25 04:36] VITALS: BP 122/64
== END 2016-05-25 04:52 | disposition home or self-care (01) ==
LOC: M ED 05-25 00:49
DX: N34.2 Other urethritis (principal); I10 Essential (primary) hypertension; G47.30 Sleep apnea, unspecified; K21.9 Gastro-esophageal reflux disease without esophagitis; K44.9 Diaphragmatic hernia without obstruction or gangrene; M54.5 Low back pain; Z88.1 Allergy status to other antibiotic agents; Z88.0 Allergy status to penicillin; Z79.899 Other long term (current) drug therapy
CPT/HCPCS: 87491; 87591; 96372; 99282; J1580

== ENCOUNTER 2016-05-31 03:56 | Emergency (ER) | payer OTHER ==
[~2016-05-31] VITALS: Ht 177.8 cm; Wt 86.2 kg
[~2016-05-31 03:56] MED LIST changes: +MAALSUS20 PO
[2016-05-31 04:01] VITALS: BP 131/69
[2016-05-31] MEDS ORDERED: LIDOCAINE 1% MDV 20ML VIAL As Ordered ONE (06:03)
[2016-05-31] MEDS: ONDANSETRON 4 MG ORAL DISINTEGRATING TAB (S0181) PO ONE (06:08)
[2016-05-31] MEDS: cefTRIAXone SOD 250 MG VIAL (J0696) IM ONE (06:09)
[2016-05-31] MEDS: AZITHROMYCIN 250 MG TAB PO ONE (06:10)
== END 2016-05-31 06:14 | disposition home or self-care (01) ==
LOC: M ED 05:12
DX: N34.1 Nonspecific urethritis (principal); K21.9 Gastro-esophageal reflux disease without esophagitis; N30.10 Interstitial cystitis (chronic) without hematuria; Z87.891 Personal history of nicotine dependence; Z88.0 Allergy status to penicillin; Z88.1 Allergy status to other antibiotic agents; Z88.8 Allergy status to other drugs, medicaments and biological substances; Z79.899 Other long term (current) drug therapy; I10 Essential (primary) hypertension; R55 Syncope and collapse; G47.30 Sleep apnea, unspecified; K44.9 Diaphragmatic hernia without obstruction or gangrene; Z87.442 Personal history of urinary calculi
CPT/HCPCS: 81001; 87086; 87491; 87591; 96372; 99281; J0696

== ENCOUNTER 2016-06-15 00:42 | Emergency (ER) | payer OTHER ==
[~2016-06-15] VITALS: Ht 180.3 cm; Wt 81.6 kg
[~2016-06-15 00:42] MED LIST changes: +NORC1TAB4 PO; -NORC5TAB PO
[2016-06-15] MEDS ORDERED: cefTRIAXone SOD 500 MG VIAL (J0696) IM ONE (04:45)
[2016-06-15] MEDS ORDERED: AZITHROMYCIN 250 MG TAB PO ONE (04:45)
[2016-06-15] MEDS ORDERED: TETR250C3 PO (04:48)
[2016-06-15] MEDS ORDERED: LIDOCAINE 1% MDV 20ML VIAL As Ordered ONE (05:19)
[2016-06-15] MEDS ORDERED: LIDOCAINE 1% MDV 20ML VIAL IM ONE ×2 (05:30)
[2016-06-15 05:51] VITALS: BP 131/72
[2016-06-24] MEDS ORDERED: OXYC1TAB23 PO (18:31)
[2016-06-24] MEDS ORDERED: PERC5TAB6 PO (23:38)
== END 2016-06-15 05:52 | disposition home or self-care (01) ==
LOC: M ED 03:23
DX: N34.2 Other urethritis (principal); K21.9 Gastro-esophageal reflux disease without esophagitis; Z79.899 Other long term (current) drug therapy; Z88.0 Allergy status to penicillin; Z88.1 Allergy status to other antibiotic agents; Z88.8 Allergy status to other drugs, medicaments and biological substances; Z91.011 Allergy to milk products
CPT/HCPCS: 87491; 87591; 96372; 99282; J0696

== ENCOUNTER 2016-08-01 08:17 | Emergency (ER) | payer OTHER ==
[~2016-08-01] VITALS: Ht 180.3 cm; Wt 83.9 kg
[~2016-08-01 08:17] MED LIST changes: +OXYC1TAB23 PO; +PERC5TAB6 PO; +TETR250C3 PO
[2016-08-01] MEDS ORDERED: AZIT500T2 (08:39)
[2016-08-01] MEDS ORDERED: NS 1,000 ML IV ONE ×2 (08:45→11:00)
--- NOTE | 2016-08-01 09:08 | REP ---
Portable chest: Single view. History: Chest pain. Comparison study: June 24, 2016. Findings: The lungs are well inflated and free of infiltrate. The pleural angles are sharp. Heart size is normal. EKG monitoring electrodes overlie the chest. Pulmonary vasculature is not increased. No significant bony abnormality is seen. Impression: Negative portable chest x-ray. Signed by Mateusz Pacheco MD 08/01/2016 08:59 A
[2016-08-01 09:14] LABS: BASO % 0.5 % (0.0-1.0); EOS # 0.1 K/mm3 (0.0-0.50); LARGE UNSTAINED CELL # 0.1 K/mm3 (0.0-0.4); LARGE UNSTAINED CELL % 1.8 % (0.0-4.0); LYMPH # 1.1 K/mm3 (1.5-4.5); LYMPH % 30.6 % (24.0-44.0); MEAN CORPUSCULAR HEMOGLOBIN 32.7 pg (27.0-33.0); MEAN CORPUSCULAR HGB CONC 33.4 g/dl (32.0-36.5); MEAN CORPUSCULAR VOLUME 97.8 fl (80.0-96.0); MONO # 0.2 K/mm3 (0.0-0.8); MONO % 5.9 % (0.0-5.0); NEUTROPHILS # 2.1 K/mm3 (1.8-7.7); NEUTROPHILS % 58.3 % (36.0-66.0); PLATELET COUNT, AUTOMATED 121 k/mm3 (150-450); WHITE BLOOD COUNT 3.6 K/mm3 (4.0-10.0)
[2016-08-01 09:31] LABS: INR 1.05
[2016-08-01 09:36] LABS: ALBUMIN 3.5 GM/DL (3.2-5.2); ALKALINE PHOSPHATASE 57 U/L (45-117); ALT/SGPT 62 U/L (12-78); ANION GAP 5 MEQ/L (8-16); AST/SGOT 28 U/L (15-37); BILIRUBIN,DIRECT 0.2 MG/DL (0.0-0.2); BILIRUBIN,TOTAL 0.6 MG/DL (0.2-1.0); BLOOD UREA NITROGEN 15 MG/DL (7-18); CALCIUM LEVEL 8.5 MG/DL (8.5-10.1); CARBON DIOXIDE LEVEL 31 MEQ/L (21-32); CHLORIDE LEVEL 104 MEQ/L (98-107); CREATININE FOR GFR 1.11 MG/DL (0.70-1.30); GLOMERULAR FILTRATION RATE > 60.0 (>60); GLUCOSE, FASTING 112 MG/DL (70-105); POTASSIUM SERUM 3.7 MEQ/L (3.5-5.1); SODIUM LEVEL 140 MEQ/L (136-145)
[2016-08-01] MEDS ORDERED: AZITHROMYCIN 250 MG TAB PO ONE (10:15)
[2016-08-01] MEDS ORDERED: PERCOCET 5MG/325MG TAB PO ONE (10:15)
[2016-08-01] MEDS ORDERED: ISOVUE-370 76% 100ML VIAL (Q9967) As Ordered ONE (10:16)
--- NOTE | 2016-08-01 11:19 | REP ---
CT ANGIOGRAM CHEST: TECHNIQUE: Axial contrast enhanced images from the thoracic inlet to the upper abdomen using 100 mL Isovue 370 intravenous contrast material with multiplanar reformations. No infiltrate is seen in either lung. Stable biapical scarring is seen. There is no CT evidence of pulmonary embolism. There is no thoracic aortic aneurysm or dissection. No adenopathy is seen. There is no pleural or pericardial effusion. Heart is normal in size. IMPRESSION: No CT evidence of pulmonary embolism. Signed by Jeremias Walton MD 08/01/2016 04:55 P
--- NOTE | 2016-08-01 11:38 | REP ---
CT ABDOMEN AND PELVIS WITH CONTRAST: TECHNIQUE: Axial contrast enhanced images from the lung bases to the pubic symphysis using 100 mL Isovue 370 intravenous contrast material with multiplanar reformations. The liver, spleen, adrenals, pancreas and kidneys are essentially unremarkable except for a calcified granuloma in the spleen. The patient has had relatively recent cholecystectomy and appendectomy. A very small amount of fluid is seen in the gallbladder fossa. A tiny amount of free fluid is seen in the pelvis. There is no free air or abscess identified. No bowel wall thickening is seen. There is no abdominal aortic aneurysm. No adenopathy is seen. There is no pelvic mass. Urinary bladder is mildly distended and grossly unremarkable. IMPRESSION: Tiny amount of free fluid in the gallbladder fossa and pelvis. No abscess or free air. No bowel wall thickening. No other acute abnormality. Signed by Jeremias Walton MD 08/01/2016 04:55 P
[2016-08-01] MEDS ORDERED: PERC5TAB6 PO (12:19)
[2016-08-01] MEDS ORDERED: ZITH500T PO (12:20)
[2016-08-01 12:30] VITALS: BP 120/68
--- NOTE | 2016-08-01 20:18 | ECGEPIP ---
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 EARLY REPOLARIZATION CW 06/24/16 - RATE INCREASED [facility] Electronically Signed On 08-01-2016 20:18:10 EDT by Raquel Urban
--- NOTE | 2016-08-01 20:19 | ECGEPIP ---
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
== END 2016-08-01 12:35 | disposition home or self-care (01) ==
LOC: M ED 09:09
DX: R07.9 Chest pain, unspecified (principal); R10.9 Unspecified abdominal pain; R06.02 Shortness of breath; R94.31 Abnormal electrocardiogram [ECG] [EKG]; R11.2 Nausea with vomiting, unspecified; I10 Essential (primary) hypertension; M54.5 Low back pain; Z82.49 Family history of ischemic heart disease and other diseases of the circulatory system; Z87.891 Personal history of nicotine dependence; Z88.1 Allergy status to other antibiotic agents; Z88.8 Allergy status to other drugs, medicaments and biological substances; Z88.0 Allergy status to penicillin; Z88.5 Allergy status to narcotic agent; Z91.011 Allergy to milk products; Z79.899 Other long term (current) drug therapy; Z79.2 Long term (current) use of antibiotics
CPT/HCPCS: 71010; 71275; 74177; 80048; 80076; 82550; 82553; 83690; 85025; 85379; 85610; 85730; 87040; 93005; 93041; 94760; 99285; Q9967

== ENCOUNTER 2016-09-08 21:51 | Emergency (ER) | payer OTHER ==
[~2016-09-08] VITALS: Ht 177.8 cm; Wt 79.9 kg
[2016-09-08 21:51] VITALS: BP 129/68
[~2016-09-08 21:51] MED LIST changes: +AZIT-12 PO; -AZIT250T3 PO; +AZIT500T2; +PERC5TAB12 PO; -PERC5TAB6 PO; +TETR1CAP PO; -TETR250C3 PO; +ZITH500T PO
[2016-09-09] MEDS ORDERED: ONDANSETRON 4MG/2ML VIAL (J2405) IV ONE (00:15)
[2016-09-09] MEDS ORDERED: NS 1,000 ML IV ONE (00:15)
[2016-09-09 00:45] LABS: BASO % 0.7 % (0.0-1.0); EOS # 0.2 K/mm3 (0.0-0.50); EOS % 3.3 % (0.0-3.0); LARGE UNSTAINED CELL # 0.1 K/mm3 (0.0-0.4); LARGE UNSTAINED CELL % 1.8 % (0.0-4.0); LYMPH # 2.3 K/mm3 (1.5-4.5); LYMPH % 40.5 % (24.0-44.0); MEAN CORPUSCULAR HEMOGLOBIN 32.3 pg (27.0-33.0); MEAN CORPUSCULAR HGB CONC 34.1 g/dl (32.0-36.5); MEAN CORPUSCULAR VOLUME 94.7 fl (80.0-96.0); MONO # 0.3 K/mm3 (0.0-0.8); MONO % 5.1 % (0.0-5.0); NEUTROPHILS # 2.7 K/mm3 (1.8-7.7); NEUTROPHILS % 48.7 % (36.0-66.0); PLATELET COUNT, AUTOMATED 137 k/mm3 (150-450); RED CELL DISTRIBUTION WIDTH 13.1 % (11.5-14.5); WHITE BLOOD COUNT 5.5 K/mm3 (4.0-10.0)
[2016-09-09 00:54] LABS: INR 1.12
--- NOTE | 2016-09-09 01:00 | REPUSA ---
CLINICAL HISTORY: Left-sided and periumbilical pain. TECHNIQUE: CT abdomen and pelvis without contrast. COMPARISON: August 01, 2016. CT ABDOMEN WITHOUT CONTRAST: Lung bases: No lung base infiltrate or effusion. Patchy lower lobe emphysema. Liver: No intrahepatic ductal dilation. Gallbladder: Cholecystectomy. Pancreas: No pancreatic duct dilation. Bowel loops: Nondistended. Spleen: Normal size. Calcified granuloma. Adrenals: Normal size. Right kidney: No stones or hydronephrosis. Left kidney: No stones or hydronephrosis. Aorta: Normal caliber. Peritoneum: No free air. CT PELVIS WITHOUT CONTRAST: Colon: Nondistended. Appendix: Apparent appendectomy, correlate with history. Bladder: Normally distended. Pelvic organs: Unremarkable. Peritoneum: No fluid. Skeleton: No acute findings. IMPRESSION: No acute abdominal findings.
[2016-09-09 01:12] LABS: ALBUMIN 3.7 GM/DL (3.2-5.2); ALBUMIN/GLOBULIN RATIO 1.16 (1.00-1.93); ALKALINE PHOSPHATASE 61 U/L (45-117); ALT/SGPT 45 U/L (12-78); ANION GAP 4 MEQ/L (8-16); AST/SGOT 22 U/L (15-37); BILIRUBIN,DIRECT 0.1 MG/DL (0.0-0.2); BILIRUBIN,TOTAL 0.3 MG/DL (0.2-1.0); BLOOD UREA NITROGEN 18 MG/DL (7-18); CALCIUM LEVEL 8.7 MG/DL (8.5-10.1); CARBON DIOXIDE LEVEL 29 MEQ/L (21-32); CHLORIDE LEVEL 108 MEQ/L (98-107); GLOMERULAR FILTRATION RATE > 60.0 (>60); GLUCOSE, FASTING 119 MG/DL (70-105); SODIUM LEVEL 141 MEQ/L (136-145); TOTAL PROTEIN 6.9 GM/DL (6.4-8.2)
== END 2016-09-09 02:21 | disposition home or self-care (01) ==
LOC: M ED 23:39
DX: R10.9 Unspecified abdominal pain (principal); K21.9 Gastro-esophageal reflux disease without esophagitis; F17.200 Nicotine dependence, unspecified, uncomplicated; Z90.49 Acquired absence of other specified parts of digestive tract; Z90.89 Acquired absence of other organs; Z79.899 Other long term (current) drug therapy; Z88.0 Allergy status to penicillin; Z88.1 Allergy status to other antibiotic agents; Z88.8 Allergy status to other drugs, medicaments and biological substances

== ENCOUNTER 2016-11-29 17:33 | Emergency (ER) | payer OTHER ==
[~2016-11-29] VITALS: Ht 180.3 cm; Wt 79.2 kg
[2016-11-29 17:34] VITALS: BP 122/60
[2016-11-29] MEDS ORDERED: CYAN1000VL (17:51)
[2016-11-29] MEDS ORDERED: HYDR-643 (17:51)
[2016-11-29] MEDS ORDERED: NS 1,000 ML IV SCH (17:57)
[2016-11-29] MEDS ORDERED: GI COCKTAIL 50ML BTL(HYOSCYAMINE/MAALOX/LIDOCAINE VISCOUS)(1:3:1) PO ONE (18:00)
[2016-11-29] MEDS ORDERED: ONDANSETRON 4MG/2ML VIAL (J2405) IV ONE (18:00)
--- NOTE | 2016-11-29 18:34 | ECGEPIP ---
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
[2016-11-29 19:23] LABS: BASO % 0.4 % (0.0-1.0); EOS # 0.1 K/mm3 (0.0-0.50); EOS % 2.5 % (0.0-3.0); LARGE UNSTAINED CELL # 0.1 K/mm3 (0.0-0.4); LARGE UNSTAINED CELL % 1.3 % (0.0-4.0); LYMPH # 1.7 K/mm3 (1.5-4.5); LYMPH % 32.2 % (24.0-44.0); MEAN CORPUSCULAR HEMOGLOBIN 31.6 pg (27.0-33.0); MONO # 0.4 K/mm3 (0.0-0.8); MONO % 7.1 % (0.0-5.0); NEUTROPHILS # 2.9 K/mm3 (1.8-7.7); NEUTROPHILS % 56.5 % (36.0-66.0); PLATELET COUNT, AUTOMATED 123 k/mm3 (150-450); RED CELL DISTRIBUTION WIDTH 13.4 % (11.5-14.5); WHITE BLOOD COUNT 5.1 K/mm3 (4.0-10.0)
[2016-11-29 19:34] LABS: ALBUMIN 3.4 GM/DL (3.2-5.2); ALBUMIN/GLOBULIN RATIO 1.21 (1.00-1.93); ALKALINE PHOSPHATASE 56 U/L (45-117); ALT/SGPT 40 U/L (12-78); ANION GAP 6 MEQ/L (8-16); AST/SGOT 17 U/L (15-37); BILIRUBIN,DIRECT 0.1 MG/DL (0.0-0.2); BILIRUBIN,TOTAL 0.3 MG/DL (0.2-1.0); BLOOD UREA NITROGEN 14 MG/DL (7-18); CALCIUM LEVEL 8.1 MG/DL (8.5-10.1); CARBON DIOXIDE LEVEL 30 MEQ/L (21-32); CHLORIDE LEVEL 111 MEQ/L (98-107); CREATININE FOR GFR 1.03 MG/DL (0.70-1.30); GLOMERULAR FILTRATION RATE > 60.0 (>60); GLUCOSE, FASTING 96 MG/DL (70-105); SODIUM LEVEL 147 MEQ/L (136-145); TOTAL PROTEIN 6.2 GM/DL (6.4-8.2)
[2016-11-29] MEDS ORDERED: MULTIVITAMIN -ADULT INJECTION 10 ML, THIAMINE INJection 100 MG, FOLIC ACID 1 MG in NS 1... IV ONE (20:00)
== END 2016-11-29 22:27 | disposition home or self-care (01) ==
LOC: M ED 17:33
DX: R10.9 Unspecified abdominal pain (principal); G89.29 Other chronic pain; K21.9 Gastro-esophageal reflux disease without esophagitis; I10 Essential (primary) hypertension; G47.33 Obstructive sleep apnea (adult) (pediatric); K44.9 Diaphragmatic hernia without obstruction or gangrene; N30.10 Interstitial cystitis (chronic) without hematuria; D51.0 Vitamin B12 deficiency anemia due to intrinsic factor deficiency; Z87.891 Personal history of nicotine dependence; Z88.0 Allergy status to penicillin; Z88.8 Allergy status to other drugs, medicaments and biological substances; Z88.1 Allergy status to other antibiotic agents; Z91.011 Allergy to milk products; Z88.5 Allergy status to narcotic agent; Z79.899 Other long term (current) drug therapy
CPT/HCPCS: 80048; 80076; 83605; 83690; 85025; 86780; 87491; 87591; 93000; 99283; J3411

== ENCOUNTER 2017-03-04 22:21 | Emergency (ER) | payer OTHER ==
[~2017-03-04] VITALS: Ht 177.8 cm; Wt 81.8 kg
[~2017-03-04 22:21] MED LIST changes: +CYAN1000VL; +HYDR-643
[2017-03-04] MEDS ORDERED: NS 1,000 ML IV SCH (22:48)
[2017-03-04] MEDS ORDERED: ASPIRIN 81 MG CHEW TABLET PO ONE (23:00)
[2017-03-04] MEDS ORDERED: NITROGLYCERIN 0.4 MG SUBL TABLET SL PRN (23:00)
[2017-03-04 23:06] LABS: BASO % 0.6 % (0.0-1.0); EOS # 0.2 10^3/uL (0.0-0.50); EOS % 3.7 % (0.0-3.0); IMMATURE GRANULOCYTE % 0.2 % (0-0); LYMPH # 2.2 10^3/uL (1.5-4.5); LYMPH % 42.6 % (24.0-44.0); MEAN CORPUSCULAR HGB CONC 34.6 g/dl (32.0-36.5); MEAN CORPUSCULAR VOLUME 92.6 fl (80.0-96.0); MONO # 0.4 10^3/uL (0.0-0.8); MONO % 7.7 % (0.0-5.0); NEUTROPHILS # 2.3 10^3/uL (1.8-7.7); NEUTROPHILS % 45.2 % (36.0-66.0); PLATELET COUNT, AUTOMATED 122 10^3/uL (150-450); RED CELL DISTRIBUTION WIDTH 13.3 % (11.5-14.5); WHITE BLOOD COUNT 5.1 10^3/uL (4.0-10.0)
[2017-03-04 23:16] LABS: INR 1.01
[2017-03-04 23:27] LABS: ALBUMIN 3.8 GM/DL (3.2-5.2); ALBUMIN/GLOBULIN RATIO 1.09 (1.00-1.93); ALKALINE PHOSPHATASE 56 U/L (45-117); ALT/SGPT 41 U/L (12-78); ANION GAP 6 MEQ/L (8-16); AST/SGOT 22 U/L (7-37); BILIRUBIN,DIRECT 0.1 MG/DL (0.0-0.2); BILIRUBIN,TOTAL 0.5 MG/DL (0.2-1.0); BLOOD UREA NITROGEN 17 MG/DL (7-18); CALCIUM LEVEL 8.3 MG/DL (8.5-10.1); CARBON DIOXIDE LEVEL 30 MEQ/L (21-32); CHLORIDE LEVEL 107 MEQ/L (98-107); CREATININE FOR GFR 1.03 MG/DL (0.70-1.30); GLOMERULAR FILTRATION RATE > 60.0 (>60); GLUCOSE, FASTING 79 MG/DL (70-105); SODIUM LEVEL 143 MEQ/L (136-145); TOTAL PROTEIN 7.3 GM/DL (6.4-8.2)
[2017-03-05] MEDS ORDERED: AZITHROMYCIN 250 MG TAB PO ONE
[2017-03-05 00:05] VITALS: BP 99/58
--- NOTE | 2017-03-05 07:45 | REP ---
PA and lateral chest: Comparison is 12/01/2015. The lung seth are clear. The cardiac size is normal The kenyatta, mediastinum, and bony thorax are unremarkable. Impression: Negative PA and lateral chest. There is no interval change. Signed by Jeremias Olivo MD 03/05/2017 07:37 A
--- NOTE | 2017-03-05 21:11 | ECGEPIP ---
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
== END 2017-03-05 00:07 | disposition home or self-care (01) ==
LOC: M ED 22:21
DX: R07.89 Other chest pain (principal); I12.9 Hypertensive chronic kidney disease with stage 1 through stage 4 chronic kidney disease, or unspecified chronic kidney disease; N18.9 Chronic kidney disease, unspecified; Z79.899 Other long term (current) drug therapy; Z88.0 Allergy status to penicillin; Z88.1 Allergy status to other antibiotic agents; Z88.8 Allergy status to other drugs, medicaments and biological substances; E73.9 Lactose intolerance, unspecified; Z82.49 Family history of ischemic heart disease and other diseases of the circulatory system; Z87.891 Personal history of nicotine dependence; Z98.890 Other specified postprocedural states

== ENCOUNTER 2017-04-17 02:03 | Emergency (ER) | payer OTHER ==
[2017-04-17] MEDS: AZITHROMYCIN 250 MG TAB PO (04:51)
[2017-04-17 05:06] LABS: KETONE, URINE AUTO RFX NEGATIVE (NEGATIVE); LEUKOCYTE ESTERASE UR AUTO RFX NEGATIVE (NEGATIVE); MUCUS, URINE RFX SMALL (NEGATIVE); NITRITE, URINE AUTO RFX NEGATIVE (NEGATIVE); RBC, URINE AUTO RFX 1 /HPF (0-3); SPECIFIC GRAVITY UR AUTO RFX 1.023 (1.002-1.035); SQUAM EPITHELIAL CELL UR AURFX 0 /HPF (0-6); WBC, URINE AUTO RFX 0 /HPF (0-3)
== END 2017-04-17 05:09 | disposition home or self-care (01) ==
LOC: M ED 02:03
DX: N30.10 Interstitial cystitis (chronic) without hematuria (principal); G89.29 Other chronic pain; K21.9 Gastro-esophageal reflux disease without esophagitis; Z79.899 Other long term (current) drug therapy; Z88.0 Allergy status to penicillin; Z88.1 Allergy status to other antibiotic agents; Z88.8 Allergy status to other drugs, medicaments and biological substances; E73.9 Lactose intolerance, unspecified
CPT/HCPCS: 81001

== ENCOUNTER 2017-05-08 19:42 | Emergency (ER) | payer OTHER ==
[2017-05-08] MEDS: ONDANSETRON 4MG/2ML VIAL (J2405) IV (21:51)
[2017-05-08] MEDS: NS 1,000 ML IV (21:51)
[2017-05-08 21:57] LABS: BASO % 0.6 % (0.0-1.0); EOS # 0.2 10^3/uL (0.0-0.50); EOS % 2.9 % (0.0-3.0); HEMATOCRIT 51.8 % (42.0-52.0); HEMOGLOBIN 17.7 g/dl (14.0-18.0); LYMPH # 2.3 10^3/uL (1.5-4.5); MEAN CORPUSCULAR HEMOGLOBIN 31.6 pg (27.0-33.0); MEAN CORPUSCULAR HGB CONC 34.2 g/dl (32.0-36.5); MEAN CORPUSCULAR VOLUME 92.5 fl (80.0-96.0); MONO # 0.5 10^3/uL (0.0-0.8); MONO % 8.6 % (0.0-5.0); NEUTROPHILS # 2.5 10^3/uL (1.8-7.7); NEUTROPHILS % 45.9 % (36.0-66.0); PLATELET COUNT, AUTOMATED 150 10^3/uL (150-450); RED CELL DISTRIBUTION WIDTH 13.1 % (11.5-14.5); WHITE BLOOD COUNT 5.5 10^3/uL (4.0-10.0)
[2017-05-08 22:09] LABS: KETONE, URINE AUTO RFX NEGATIVE (NEGATIVE); LEUKOCYTE ESTERASE UR AUTO RFX NEGATIVE (NEGATIVE); MUCUS, URINE RFX SMALL (NEGATIVE); NITRITE, URINE AUTO RFX NEGATIVE (NEGATIVE); RBC, URINE AUTO RFX 2 /HPF (0-3); SQUAM EPITHELIAL CELL UR AURFX 0 /HPF (0-6); WBC, URINE AUTO RFX 0 /HPF (0-3)
[2017-05-08 22:16] LABS: ALBUMIN 3.8 GM/DL (3.2-5.2); ALBUMIN/GLOBULIN RATIO 1.19 (1.00-1.93); ALKALINE PHOSPHATASE 59 U/L (45-117); ALT/SGPT 61 U/L (12-78); ANION GAP 6 MEQ/L (8-16); AST/SGOT 34 U/L (7-37); BILIRUBIN,TOTAL 0.5 MG/DL (0.2-1.0); BLOOD UREA NITROGEN 18 MG/DL (7-18); CARBON DIOXIDE LEVEL 30 MEQ/L (21-32); CHLORIDE LEVEL 104 MEQ/L (98-107); CREATININE FOR GFR 0.95 MG/DL (0.70-1.30); GLOMERULAR FILTRATION RATE > 60.0 (>60); GLUCOSE, FASTING 67 MG/DL (70-100); LIPASE 127 U/L (73-393); POTASSIUM SERUM 4.3 MEQ/L (3.5-5.1); SODIUM LEVEL 140 MEQ/L (136-145)
[2017-05-08] MEDS: AZITHROMYCIN 250 MG TAB PO (22:30)
[2017-05-08] MEDS: CEFTRIAXONE SOD 1 GM in APPROPRIATE DILUENT 1 EA IV (22:30)
[2017-05-09 06:56] LABS: CHLAMYDIA DNA AMPLIFICATION NEGATIVE (NEGATIVE); GC DNA AMPLIFICATION NEGATIVE (NEGATIVE)
== END 2017-05-08 23:55 | disposition home or self-care (01) ==
LOC: M ED 19:42
DX: N34.1 Nonspecific urethritis (principal); I10 Essential (primary) hypertension; K21.9 Gastro-esophageal reflux disease without esophagitis; Z79.2 Long term (current) use of antibiotics; Z79.899 Other long term (current) drug therapy; Z88.0 Allergy status to penicillin; Z88.1 Allergy status to other antibiotic agents; E73.9 Lactose intolerance, unspecified; Z87.448 Personal history of other diseases of urinary system; Z87.442 Personal history of urinary calculi; Z98.890 Other specified postprocedural states
CPT/HCPCS: J2405

== ENCOUNTER → 2017-05-08 | Outpatient (REF) | payer OTHER ==
[2017-05-08 22:15] LABS: APPEARANCE, URINE CLEAR (CLEAR); BACTERIA, URINE AUTO NEGATIVE (NEGATIVE); BILIRUBIN, URINE AUTO NEGATIVE (NEGATIVE); BLOOD, URINE BLOOD NEGATIVE (NEGATIVE); COLOR, URINE YELLOW (YELLOW); GLUCOSE, URINE (UA) AUTO NEGATIVE (NEGATIVE); KETONE, URINE AUTO NEGATIVE (NEGATIVE); LEUKOCYTE ESTERASE, URINE AUTO NEGATIVE (NEGATIVE); MUCUS, URINE SMALL (NEGATIVE); NITRITE, URINE AUTO NEGATIVE (NEGATIVE); PROTEIN, URINE AUTO NEGATIVE (NEGATIVE); RBC, URINE AUTO 0 /HPF (0-3); SPECIFIC GRAVITY URINE AUTO 1.018 (1.002-1.035); SQUAMOUS EPITHELIAL CELL UR AU 0 /HPF (0-6); UROBILINOGEN, URINE AUTO 0.2 mg/dL (0.0-2.0); WBC, URINE AUTO 0 /HPF (0-3)
[2017-05-08 23:33] LABS: CHLAMYDIA DNA AMPLIFICATION NEGATIVE (NEGATIVE); GC DNA AMPLIFICATION NEGATIVE (NEGATIVE)
== END ==
LOC: M LAB REF 10:43
DX: N39.0 Urinary tract infection, site not specified (principal)
CPT/HCPCS: 81001

== ENCOUNTER 2017-05-17 10:03 | Emergency (ER) | payer OTHER ==
[2017-05-17] MEDS: NS 1,000 ML IV (10:52)
[2017-05-17 11:04] LABS: BASO % 0.7 % (0.0-1.0); EOS # 0.1 10^3/uL (0.0-0.50); EOS % 2.5 % (0.0-3.0); HEMATOCRIT 55.3 % (42.0-52.0); HEMOGLOBIN 18.8 g/dl (14.0-18.0); IMMATURE GRANULOCYTE % 0.2 % (0-3.0); LYMPH # 1.4 10^3/uL (1.5-4.5); LYMPH % 31.8 % (24.0-44.0); MONO # 0.4 10^3/uL (0.0-0.8); MONO % 9.8 % (0.0-5.0); NEUTROPHILS # 2.4 10^3/uL (1.8-7.7); PLATELET COUNT, AUTOMATED 130 10^3/uL (150-450); RED BLOOD COUNT 5.88 10^6/uL (4.30-6.10); RED CELL DISTRIBUTION WIDTH 13.3 % (11.5-14.5); WHITE BLOOD COUNT 4.4 10^3/uL (4.0-10.0)
[2017-05-17 11:07] LABS: KETONE, URINE AUTO RFX NEGATIVE (NEGATIVE); LEUKOCYTE ESTERASE UR AUTO RFX NEGATIVE (NEGATIVE); MUCUS, URINE RFX SMALL (NEGATIVE); NITRITE, URINE AUTO RFX NEGATIVE (NEGATIVE); RBC, URINE AUTO RFX 0 /HPF (0-3); SPECIFIC GRAVITY UR AUTO RFX 1.023 (1.002-1.035); SQUAM EPITHELIAL CELL UR AURFX 0 /HPF (0-6); SUSPECT SAMPLE POS FLAG; WBC, URINE AUTO RFX 0 /HPF (0-3)
[2017-05-17] MEDS: ONDANSETRON 4MG/2ML VIAL (J2405) IV (11:07)
[2017-05-17 11:21] LABS: ANION GAP 3 MEQ/L (8-16); BLOOD UREA NITROGEN 18 MG/DL (7-18); CALCIUM LEVEL 8.7 MG/DL (8.5-10.1); CARBON DIOXIDE LEVEL 33 MEQ/L (21-32); CHLORIDE LEVEL 105 MEQ/L (98-107); GLOMERULAR FILTRATION RATE > 60.0 (>60); GLUCOSE, FASTING 63 MG/DL (70-100); POTASSIUM SERUM 4.1 MEQ/L (3.5-5.1); SODIUM LEVEL 141 MEQ/L (136-145)
[2017-05-17] MEDS: BACTRIM 160MG/800MG DS TAB PO (12:14)
== END 2017-05-17 12:23 | disposition home or self-care (01) ==
LOC: M ED 10:03
DX: N30.20 Other chronic cystitis without hematuria (principal); E73.9 Lactose intolerance, unspecified; Z79.2 Long term (current) use of antibiotics; Z79.899 Other long term (current) drug therapy; Z88.0 Allergy status to penicillin; Z88.1 Allergy status to other antibiotic agents; Z88.8 Allergy status to other drugs, medicaments and biological substances; Z98.890 Other specified postprocedural states; Z87.19 Personal history of other diseases of the digestive system
CPT/HCPCS: 80048

== ENCOUNTER 2017-05-18 07:47 | Emergency (ER) | payer OTHER ==
[2017-05-18] MEDS: LIDOCAINE 1% MDV 20ML VIAL IM (08:30)
[2017-05-18] MEDS: cefTRIAXone SOD 250 MG VIAL (J0696) IM (08:31)
== END 2017-05-18 08:55 | disposition home or self-care (01) ==
LOC: M ED 07:47
DX: L29.8 Other pruritus (principal); N30.10 Interstitial cystitis (chronic) without hematuria; E73.9 Lactose intolerance, unspecified; Z79.2 Long term (current) use of antibiotics; Z79.899 Other long term (current) drug therapy; Z88.0 Allergy status to penicillin; Z88.1 Allergy status to other antibiotic agents; Z88.8 Allergy status to other drugs, medicaments and biological substances
CPT/HCPCS: J0696

== ENCOUNTER 2017-06-21 11:16 | Emergency (ER) | payer OTHER ==
[2017-06-21] MEDS: NS 1,000 ML IV (12:25)
[2017-06-21 12:28] LABS: EOS # 0.1 10^3/uL (0.0-0.50); HEMATOCRIT 53.1 % (42.0-52.0); HEMOGLOBIN 17.9 g/dl (13.5-17.5); IMMATURE GRANULOCYTE % 0.2 % (0-3.0); LYMPH # 1.3 10^3/uL (1.5-4.5); LYMPH % 30.8 % (24.0-44.0); MEAN CORPUSCULAR HEMOGLOBIN 31.3 pg (27.0-33.0); MEAN CORPUSCULAR HGB CONC 33.7 g/dl (32.0-36.5); MEAN CORPUSCULAR VOLUME 92.8 fl (80.0-96.0); MONO # 0.5 10^3/uL (0.0-0.8); MONO % 12.1 % (0.0-5.0); NEUTROPHILS # 2.2 10^3/uL (1.8-7.7); NEUTROPHILS % 52.9 % (36.0-66.0); PLATELET COUNT, AUTOMATED 108 10^3/uL (150-450); RED BLOOD COUNT 5.72 10^6/uL (4.30-6.10); RED CELL DISTRIBUTION WIDTH 13.3 % (11.5-14.5); WHITE BLOOD COUNT 4.1 10^3/uL (4.0-10.0)
[2017-06-21 12:55] LABS: VITAMIN B12 LEVEL 783 PG/ML (247-911)
[2017-06-21 13:09] LABS: ERYTHROCYTE SEDIMENTATION RATE 1 mm/hr (0-15)
[2017-06-21 13:15] LABS: ALBUMIN 3.7 GM/DL (3.2-5.2); ALBUMIN/GLOBULIN RATIO 1.09 (1.00-1.93); ALKALINE PHOSPHATASE 58 U/L (45-117); ALT/SGPT 65 U/L (12-78); ANION GAP 2 MEQ/L (8-16); AST/SGOT 24 U/L (7-37); BILIRUBIN,TOTAL 0.8 MG/DL (0.2-1.0); BLOOD UREA NITROGEN 16 MG/DL (7-18); CALCIUM LEVEL 8.7 MG/DL (8.5-10.1); CARBON DIOXIDE LEVEL 32 MEQ/L (21-32); CHLORIDE LEVEL 106 MEQ/L (98-107); CREATININE FOR GFR 1.09 MG/DL (0.70-1.30); GLOMERULAR FILTRATION RATE > 60.0 (>60); GLUCOSE, FASTING 74 MG/DL (70-100); POTASSIUM SERUM 4.4 MEQ/L (3.5-5.1); SODIUM LEVEL 140 MEQ/L (136-145); TOTAL PROTEIN 7.1 GM/DL (6.4-8.2)
[2017-06-21 14:10] LABS: CHLAMYDIA DNA AMPLIFICATION NEGATIVE (NEGATIVE); GC DNA AMPLIFICATION NEGATIVE (NEGATIVE)
[2017-06-21] MEDS: AZITHROMYCIN 250 MG TAB PO (14:47)
[2017-06-21] MEDS: CEFTRIAXONE SOD 1 GM in APPROPRIATE DILUENT 1 EA IV (14:49)
[2017-06-21 19:23] LABS: KETONE, URINE AUTO RFX NEGATIVE (NEGATIVE); LEUKOCYTE ESTERASE UR AUTO RFX NEGATIVE (NEGATIVE); MUCUS, URINE RFX SMALL (NEGATIVE); NITRITE, URINE AUTO RFX NEGATIVE (NEGATIVE); RBC, URINE AUTO RFX 1 /HPF (0-3); SPECIFIC GRAVITY UR AUTO RFX 1.009 (1.002-1.035); SQUAM EPITHELIAL CELL UR AURFX 0 /HPF (0-6); WBC, URINE AUTO RFX 0 /HPF (0-3)
== END 2017-06-21 15:18 | disposition home or self-care (01) ==
LOC: M ED 11:16
DX: R30.0 Dysuria (principal); R10.9 Unspecified abdominal pain; R19.7 Diarrhea, unspecified; Z87.19 Personal history of other diseases of the digestive system; Z87.440 Personal history of urinary (tract) infections; Z79.899 Other long term (current) drug therapy; Z88.0 Allergy status to penicillin; Z88.1 Allergy status to other antibiotic agents; Z88.8 Allergy status to other drugs, medicaments and biological substances; E73.9 Lactose intolerance, unspecified
CPT/HCPCS: J0696